=== PATIENT | female | born 2000 | race Caucasian/White ===

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

== ENCOUNTER 2019-03-03 08:09 | Emergency (ER) | payer OTHER, SELFPAY ==
[2019-03-03 09:18] LABS: Absolute Lymphocytes (CBC) 1.4 K/uL (0.7-4.9); Basophils % 0.4 % (0-1.3); Hematocrit 38.9 % (36.0-45.0); RBC Red Blood Cell Count 4.53 M/uL (3.86-4.86)
[2019-03-03 09:35] LABS: Urine Blood TRACE (NEG); Urine Glucose NEGATIVE (NEG); Urine Protein NEGATIVE (NEG); Urine Specific Gravity >1.030 (1.005-1.030); Urine pH 5.5 (5.0-7.0)
[2019-03-03 09:37] LABS: BUN Blood Urea Nitrogen 13 mg/dL (7-18); Bicarbonate 27 mmol/L (21-32); Glucose Level 110 mg/dL (74-106); HCG, Quantitative 419 mIU/mL (1-3); Potassium 3.9 mmol/L (3.5-5.1); Sodium Level 139 mmol/L (136-145)
--- NOTE | 2019-03-03 11:14 | RAD REPORT ---
EXAM DESCRIPTION: US - Transvaginal OB - 03/03/2019 10:40 am CLINICAL HISTORY: Pelvic pain, positive test COMPARISON: None. FINDINGS: Uterus measures 8.4 x 3.4 x 4.2 cm. No myometrial mass identified. Endometrium is approxim ately 15 mm in thickness with no gestational sac or sac remnant. No hemorrhagic material or other end ometrial abnormality seen. Cervical canal appears to be closed. Both ovaries are identified and normal in size. Normal blood flow within the stroma. No adnexal mass or other finding to suspect ectopic . No blood or fluid in the cul de sac. IMPRESSION: No intra uterine gestational sac or sac remnant. No endometrial abnormality. No adnexal mass to suspect ectopic . Follow-up sonography can be performed if patient has rising serial beta HCG values.
--- NOTE | 2019-03-03 11:38 | ER ---
Nurse's Notes [facility] Name: Chelita Rasmussen Age: 18 yrs Sex: Female : 2000 Arrival Date: 03/03/2019 Time: 08:12 Bed 19 Private MD: Diagnosis: state Presentation: 03/03 08:21 Presenting complaint: Abdominal cramping and diarrhea x 3 days. Transition of care: hb patient was not received from another setting of care. Onset of symptoms was February 28, 2019. Risk Assessment: Do you want to hurt yourself or someone else? Patient reports no desire to harm self or others. Initial Sepsis Screen: Does the patient meet any 2 criteria? No. Patient's initial sepsis screen is negative. Does the patient have a suspected source of infection? No. Patient's initial sepsis screen is negative. Care prior to arrival: None. 08:21 Method Of Arrival: Ambulatory 08:21 Acuity: RAGHAV 3 hb Triage Assessment: 08:30 General: Appears in no apparent distress. comfortable, obese, Behavior is cooperative, bp appropriate for age, anxious. Pain: Complains of pain in pelvis. EENT: No deficits noted. Neuro: No deficits noted. Cardiovascular: No deficits noted. Respiratory: No deficits noted. GI: No signs and/or symptoms were reported involving the gastrointestinal system. : Reports pain in suprapubic area. Derm: No deficits noted. Musculoskeletal: No deficits noted. 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 - Social history:: Smoking status: Patient/guardian denies using tobacco. - Ebola Screening: : No symptoms or risks identified at this time. Screenin:30 Abuse screen: Denies threats or abuse. Denies injuries from another. Nutritional bp screening: No deficits noted. Tuberculosis screening: No symptoms or risk factors identified. Fall Risk None identified. Assessment: 08:30 General: SEE TRIAGE NOTE. Pain: Complains of pain in pelvis. GI: Bowel sounds present X bp 4 quads. Abd is soft X 4 quads. 09:55 Reassessment: U/S AT B/S. bp 10:53 Reassessment: U/S COMPLETED, RESULTS PENDING. bp 11:58 Reassessment: PT D/C HOME AMBULATORY, DX WITH 1ST TRIMESTER . bp Vital Signs: 08:23 BP 131 / 84; Pulse 91; Resp 16; Temp 97.8; Pulse Ox 100% ; Weight 99.79 kg; Height 5 hb ft. 7 in. (170.18 cm); Pain 7/10; 09:54 BP 103 / 71; Pulse 78; Resp 16; Pulse Ox 100% ; bp 10:53 BP 129 / 75; Pulse 85; Resp 15; Pulse Ox 99% ; bp 11:58 BP 123 / 62; Pulse 67; Resp 16; Temp 97.5; Pulse Ox 98% ; bp 08:23 Body Mass Index 34.46 (99.79 kg, 170.18 cm) hb ED Course: 08:12 Patient arrived in ED. as 08:18 [place], MATHEUS is Primary Nurse. bp 08:22 Triage completed. hb 08:23 Arm band placed on. hb 08:24 [facility] kb 08:24 Lincoln Francois MD is Attending Physician. kb 08:30 Patient has correct armband on for positive identification. Bed in low position. Call bp light in reach. Side rails up X2. 08:45 Urine collected: clean catch specimen, cloudy. dh3 09:00 Inserted saline lock: 18 gauge in right antecubital area, using aseptic technique. bp Blood collected. 10:06 US Transvaginal Ob In Process Unspecified. EDMS 11:59 No provider procedures requiring assistance completed. IV discontinued, intact, bp bleeding controlled, No redness/swelling at site. Pressure dressing applied. Administered Medications: No medications were administered Outcome: 11:37 Discharge ordered by . kb 11:59 Discharged to home ambulatory. bp 11:59 Condition: stable 11:59 Discharge instructions given to patient, Instructed on discharge instructions, follow up and referral plans. Demonstrated understanding of instructions, follow-up care. 12:00 Patient left the ED. bp Signatures: Dispatcher [employer] EDWA Alejandra Diaz FNP-C FNP-Avelina Cutler Heather, RN RN Alyson Washburn dh3 [place], RN RN bp
--- NOTE | 2019-03-03 11:38 | EDPHYS ---
Physician Documentation [facility] Name: Cheliat Rasmussen Age: 18 yrs Sex: Female : 2000 Arrival Date: 03/03/2019 Time: 08:12 Bed 19 Private MD: ED Physician Lincoln Francois HPI: 03/03 09:50 This 18 yrs old Female presents to ER via Ambulatory with complaints of kb Pelvic Pain, Abdominal Cramping. 09:51 The patient presents with abdominal pain that is diffuse. Onset: The symptoms/episode kb began/occurred 5 day(s) ago. The symptoms do not radiate. Associated signs and symptoms: Pertinent positives: diarrhea. The symptoms are described as constant. Modifying factors: The symptoms are alleviated by nothing, the symptoms are aggravated by nothing. Severity of pain: At its worst the pain was moderate in the emergency department the pain is unchanged. The patient has not experienced similar symptoms in the past. The patient has not recently seen a physician. . Pt reports 5-6 days of abd cramping, diarrhea for 3-4 days. . 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 - Social history:: Smoking status: Patient/guardian denies using tobacco. - Ebola Screening: : No symptoms or risks identified at this time. ROS: 09:49 Constitutional: Negative for fever, chills, and weight loss, ENT: Negative for injury, kb pain, and discharge, Neck: Negative for injury, pain, and swelling, Cardiovascular: Negative for chest pain, palpitations, and edema, Respiratory: Negative for shortness of breath, cough, wheezing, and pleuritic chest pain, Back: Negative for injury and pain, : Negative for injury, bleeding, discharge, and swelling, MS/Extremity: Negative for injury and deformity, Skin: Negative for injury, rash, and discoloration, Neuro: Negative for headache, weakness, numbness, tingling, and seizure. 09:49 Abdomen/GI: Positive for diarrhea, abdominal cramps. Exam: 09:49 Constitutional: This is a well developed, well nourished patient who is awake, alert, kb and in no acute distress. Head/Face: Normocephalic, atraumatic. ENT: Nares patent. No nasal discharge, no septal abnormalities noted. Tympanic membranes are normal and external auditory canals are clear. Oropharynx with no redness, swelling, or masses, exudates, or evidence of obstruction, uvula midline. Mucous membranes moist. Neck: Trachea midline, no thyromegaly or masses palpated, and no cervical lymphadenopathy. Supple, full range of motion without nuchal rigidity, or vertebral point tenderness. No Meningismus. Chest/axilla: Normal chest wall appearance and motion. Nontender with no deformity. No lesions are appreciated. Cardiovascular: Regular rate and rhythm with a normal S1 and S2. No gallops, murmurs, or rubs. Normal PMI, no JVD. No pulse deficits. Respiratory: Lungs have equal breath sounds bilaterally, clear to auscultation and percussion. No rales, rhonchi or wheezes noted. No increased work of breathing, no retractions or nasal flaring. Back: No spinal tenderness. No costovertebral tenderness. Full range of motion. Skin: Warm, dry with normal turgor. Normal color with no rashes, no lesions, and no evidence of cellulitis. MS/ Extremity: Pulses equal, no cyanosis. Neurovascular intact. Full, normal range of motion. Neuro: Awake and alert, GCS 15, oriented to person, place, time, and situation. Cranial nerves II-XII grossly intact. Motor strength 5/5 in all extremities. Sensory grossly intact. Cerebellar exam normal. Normal gait. 09:49 Abdomen/GI: Inspection: abdomen appears normal, Bowel sounds: normal, in all quadrants, Palpation: soft, in all quadrants, mild abdominal tenderness, in all quadrants. Vital Signs: 08:23 BP 131 / 84; Pulse 91; Resp 16; Temp 97.8; Pulse Ox 100% ; Weight 99.79 kg; Height 5 hb ft. 7 in. (170.18 cm); Pain 7/10; 09:54 BP 103 / 71; Pulse 78; Resp 16; Pulse Ox 100% ; bp 10:53 BP 129 / 75; Pulse 85; Resp 15; Pulse Ox 99% ; bp 11:58 BP 123 / 62; Pulse 67; Resp 16; Temp 97.5; Pulse Ox 98% ; bp 08:23 Body Mass Index 34.46 (99.79 kg, 170.18 cm) hb MDM: 08:25 Patient medically screened. kb 09:49 Data reviewed: vital signs, nurses notes. Data interpreted: Pulse oximetry: on room air kb is 100 %. Interpretation: normal. 09:57 ED course: Pt educated on positive test. LMP was 01/15/19. kb 11:37 Counseling: I had a detailed discussion with the patient and/or guardian regarding: the kb historical points, exam findings, and any diagnostic results supporting the discharge/admit diagnosis, lab results, radiology results, the need for outpatient follow up, an OB/Gyne specialist, to return to the emergency department if symptoms worsen or persist or if there are any questions or concerns that arise at home. 03/03 08:46 Order name: Quantitative Hcg; Complete Time: 09:42 kb 03/03 08:46 Order name: Abo/rh Typing; Complete Time: 10:13 kb 03/03 08:46 Order name: Basic Metabolic Panel; Complete Time: 09:42 kb 03/03 08:46 Order name: CBC with Diff; Complete Time: 09:29 kb 03/03 08:57 Order name: Urine Dipstick--Ancillary (enter results); Complete Time: 09:42 bd 03/03 08:57 Order name: Urine --Ancillary (enter results); Complete Time: 09:42 bd 03/03 08:25 Order name: Urine Dipstick-Ancillary (obtain specimen); Complete Time: 08:46 kb 03/03 08:25 Order name: Urine Test (obtain specimen); Complete Time: 08:46 kb 03/03 08:46 Order name: IV Saline Lock; Complete Time: 09:07 kb 03/03 08:46 Order name: Labs collected and sent; Complete Time: 09:07 kb 03/03 08:46 Order name: NPO; Complete Time: 09:07 kb 03/03 09:42 Order name: US Transvaginal Ob; Complete Time: 11:36 kb Administered Medications: No medications were administered Disposition: 03/03/19 11:37 Discharged to Home. Impression: state. - Condition is Stable. - Discharge Instructions: First Trimester of , [id number]. - Medication Reconciliation Form, Thank You Letter, Antibiotic Education, Prescription Opioid Use, School release form, Work release form form. - Follow up: Emergency Department; When: As needed; Reason: Worsening of condition. Follow up: Private Physician; When: 2 - 3 days; Reason: Recheck today's complaints, Continuance of care, Re-evaluation by your physician. Addendum: 03/04/2019 20:52 Co-signature as Attending Physician, Lincoln Francois MD I agree with the assessment and k dr plan of care. Signatures: Dispatcher [employer] EDAL Alejandra Diaz, BAR BACK-C BAR BACK-Ckb Lincoln Francois MD MD [facility] Jocelynn Ortiz, RN RN [place] RN RN bp Corrections: (The following items were deleted from the chart) 03/03 12:00 11:37 03/03/2019 11:37 Discharged to Home. Impression: state. Condition is bp Stable. Forms are Medication Reconciliation Form, Thank You Letter, Antibiotic Education, Prescription Opioid Use. Follow up: Emergency Department; When: As needed; Reason: Worsening of condition. Follow up: Private Physician; When: 2 - 3 days; Reason: Recheck today's complaints, Continuance of care, Re-evaluation by your physician. kb
[2019-03-03 12:10] VITALS: BP 123/62; TEMP 97.5; O2SAT 98
== END 2019-03-03 12:00 | disposition home or self-care (01) ==
LOC: ER 08:09
DX: R10.2 Pelvic and perineal pain (principal); Z33.1 Pregnant state, incidental
CPT/HCPCS: 36415; 76817; 80048; 81003; 81025; 84702; 85025; 86900; 86901; 99284

== ENCOUNTER 2019-10-20 19:21 | Emergency (ER) | payer BC, SELFPAY ==
--- OUTSIDE RECORDS SUMMARY | 2019-10-20 19:24 | XMS REPORT | Continuity of Care Document ---
:2000 Author Organization [facility] t Address [address] [place] [address] Care Team Providers Name Role Phone Agustin Miller Attending Clinician Problems This patient has no known problems. Allergies, Adverse Reactions, Alerts This patient has no known allergies or adverse reactions. Medications This patient has no known medications. Procedures This patient has no known procedures. Encounters Start End Encounter Admission Attending Care Care Encounter Source Date/Time Date/Time Type Type Clinicians Facility Department ID 2019-06-04 2019-06-04 Emergency [facility] [id number] 15:23:11 18:34:00 Angela Sherwood [id number] [place] [id number] [place] [id number] Results This patient has no known results.
[2019-10-20 20:04] LABS: Urine Blood 1+ (NEG); Urine Glucose NEGATIVE (NEG); Urine Protein TRACE (NEG); Urine Specific Gravity >1.030 (1.005-1.030)
[2019-10-20 20:32] LABS: Urine Bacteria 20-50 /HPF (<20); Urine Culture Reflex Order REFLEXED; Urine RBC <5 /HPF (NONE SEEN)
[2019-10-20 20:33] LABS: Absolute Lymphocytes (CBC) 1.1 K/uL (0.7-4.9); Basophils % 0.7 % (0-1.3); Hematocrit 36.6 % (36.0-45.0); Lymphocytes % 24.6 % (15.3-44.8); MPV 9.3 fL (7.6-11.3)
[2019-10-20 20:40] LABS: Protime INR 1.06
[2019-10-20 20:42] LABS: Barbiturates NEGATIVE (NEGATIVE); Benzodiazepines NEGATIVE (NEGATIVE); Cocaine NEGATIVE (NEGATIVE); METHAMPHETAM NEGATIVE (NEGATIVE); Methadone NEGATIVE (NEGATIVE); Opiates NEGATIVE (NEGATIVE); Phencyclidine NEGATIVE (NEGATIVE); THC Cannibis NEGATIVE (NEGATIVE)
[2019-10-20 20:43] LABS: ALT/SGPT 27 U/L (12-78); AST/SGOT 15 U/L (15-37); Albumin 4.4 g/dL (3.4-5.0); Alkaline Phosphatase 47 U/L (45-117); BUN Blood Urea Nitrogen 11 mg/dL (7-18); Bicarbonate 30 mmol/L (21-32); Bilirubin Direct 0.1 mg/dL (0-0.2); Bilirubin Total 0.5 mg/dL (0.2-1.0); Glucose Level 73 mg/dL (74-106); Magnesium 2.1 mg/dL (1.8-2.4); NT PRO-BNP 19 pg/mL (<125); Potassium 3.9 mmol/L (3.5-5.1); Protein, Total 8.4 g/dL (6.4-8.2); Sodium Level 141 mmol/L (136-145); Troponin (Emerg Dept Use Only) < 0.02 ng/mL (0.0-0.045)
--- NOTE | 2019-10-20 20:44 | RAD REPORT ---
EXAM DESCRIPTION: RAD - Chest Single View - 10/20/2019 8:26 pm CLINICAL HISTORY: CHEST PAIN COMPARISON: None TECHNIQUE: AP portable chest image was obtained 10/20/2019 8:26 pm . FINDINGS: Lungs are clear. Heart and vasculature are normal. No measurable pleural effusion and no p neumothorax. No acute bony abnormality seen. No acute aortic findings suspected. IMPRESSION: No acute cardiopulmonary process.
--- NOTE | 2019-10-20 21:22 | RAD REPORT ---
EXAM DESCRIPTION: CT - Head Brain Wo Cont - 10/20/2019 9:03 pm CLINICAL HISTORY: SYNCOPE, altered mental status, unresponsive COMPARISON: <Comparisons> TECHNIQUE: Axial 5 mm thick images of the head were obtained without IV contrast. All CT scans are performed using dose optimization technique as appropriate and may include automated exposure control or mA/KV adjustment according to patient size. FINDINGS: No intracranial hemorrhage, mass, edema or shift of mid-line structures. No acute infarcti on changes seen. No abnormal extra-axial fluid collections. Ventricles are normal. Mastoid air cells and visualized portions of the paranasal sinuses are clear. No acute bony findings. IMPRESSION: Negative non-contrast CT head examination.
--- NOTE | 2019-10-21 01:21 | EDPHYS ---
Physician Documentation [facility] Name: Chelita Rasmussen Age: 19 yrs Sex: Female : 2000 Arrival Date: 10/20/2019 Time: 19:23 Bed 6 Private MD: ED Physician Francis Doe HPI: 10/19 20:06 This 19 yrs old Female presents to ER via EMS with complaints of loss of mh7 consciousness. 20:06 The patient has experienced syncope, became unresponsive, collapsed, lost mh7 consciousness. Onset: The symptoms/episode began/occurred today. Duration: This was a single episode, that lasted an unknown period of time. Context: the episode(s) was witnessed, by no one, the downtime is unknown, occurred at work, occurred while the patient was standing, Just prior to the episode the patient experienced dizziness, lightheadedness. Associated injury:. 20:07 Associated injury: The patient did not suffer any apparent associated injury. mh7 Associated signs and symptoms: Pertinent positives: abdominal pain, chest pain, dizziness, lightheadedness, Pertinent negatives: agitation, ataxia, blurred vision, combativeness, confusion, diaphoresis, diarrhea, headache, nausea, numbness, palpitations, seizure, shortness of breath, tingling, vertigo, vomiting, weakness. Current symptoms: Currently, the patient is not experiencing any symptoms, the patient feels back to baseline, no decreased level of consciousness, no confusion, no dysphasia, no headache, no paralysis, no visual changes. 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 - Social history:: Smoking status: unknown Patient/guardian denies using alcohol, street drugs, tobacco products. ROS: 20:07 Constitutional: Negative for fever, chills, and weight loss, Eyes: Negative for injury, mh7 pain, redness, and discharge, ENT: Negative for injury, pain, and discharge, Neck: Negative for injury, pain, and swelling, Respiratory: Negative for shortness of breath, cough, wheezing, and pleuritic chest pain, Back: Negative for injury and pain, : Negative for injury, bleeding, discharge, and swelling, MS/Extremity: Negative for injury and deformity, Skin: Negative for injury, rash, and discoloration, Psych: Negative for depression, anxiety, suicide ideation, homicidal ideation, and hallucinations, Allergy/Immunology: Negative for hives, rash, and allergies, Endocrine: Negative for neck swelling, polydipsia, polyuria, polyphagia, and marked weight changes, Hematologic/Lymphatic: Negative for swollen nodes, abnormal bleeding, and unusual bruising. Exam: 20:07 Constitutional: This is a well developed, well nourished patient who is awake, alert, mh7 and in no acute distress. Head/Face: Normocephalic, atraumatic. Eyes: Pupils equal round and reactive to light, extra-ocular motions intact. Lids and lashes normal. Conjunctiva and sclera are non-icteric and not injected. Cornea within normal limits. Periorbital areas with no swelling, redness, or edema. ENT: Nares patent. No nasal discharge, no septal abnormalities noted. Tympanic membranes are normal and external auditory canals are clear. Oropharynx with no redness, swelling, or masses, exudates, or evidence of obstruction, uvula midline. Mucous membranes moist. Neck: Trachea midline, no thyromegaly or masses palpated, and no cervical lymphadenopathy. Supple, full range of motion without nuchal rigidity, or vertebral point tenderness. No Meningismus. 20:07 Cardiovascular: Regular rate and rhythm with a normal S1 and S2. No gallops, murmurs, or rubs. Normal PMI, no JVD. No pulse deficits. Respiratory: Lungs have equal breath sounds bilaterally, clear to auscultation and percussion. No rales, rhonchi or wheezes noted. No increased work of breathing, no retractions or nasal flaring. 20:07 Skin: Warm, dry with normal turgor. Normal color with no rashes, no lesions, and no evidence of cellulitis. MS/ Extremity: Pulses equal, no cyanosis. Neurovascular intact. Full, normal range of motion. Neuro: Awake and alert, GCS 15, oriented to person, place, time, and situation. Cranial nerves II-XII grossly intact. Motor strength 5/5 in all extremities. Sensory grossly intact. Cerebellar exam normal. Normal gait. Psych: Awake, alert, with orientation to person, place and time. Behavior, mood, and affect are within normal limits. 20:07 Chest/axilla: Inspection: normal, Palpation: tenderness, that is moderate, of the anterior aspect of left upper chest, that totally reproduces the patient's complaints, Axilla: are normal, Lymph nodes: lymphadenopathy is not appreciated. 20:07 Abdomen/GI: Inspection: abdomen appears normal, Bowel sounds: normal, in all quadrants, Palpation: moderate abdominal tenderness, in the abdomen diffusely, Rectal exam: the exam is deferred, because of patient request, Indicators: McBurney's point is not tender, Anne's sign is negative, Rovsing's sign is negative, Obturator sign is negative, Psoas sign is negative, Liver: no appreciated palpable abnormalities, Hernia: not appreciated. Vital Signs: 19:25 BP 117 / 80; Pulse 75; Resp 16; Temp 97.5; Pulse Ox 99% ; Weight 108.86 kg; Height 5 rr5 ft. 7 in. (170.18 cm); Pain 9/10; 21:00 BP 116 / 85; Pulse 75; Resp 19; Pulse Ox 100% ; rr5 22:00 BP 123 / 74; Pulse 68; Resp 15; Pulse Ox 98% ; rr5 23:00 BP 121 / 68; Pulse 60; Resp 15; Pulse Ox 99% ; rr5 23:52 BP 129 / 86; Pulse 65; Resp 17; Pulse Ox 99% on R/A; rr5 10/20 00:29 BP 107 / 69; Pulse 61; Resp 16; Temp 98.5; Pulse Ox 99% ; rr5 10/19 19:25 Body Mass Index 37.59 (108.86 kg, 170.18 cm) rr5 MDM: 10/19 20:04 Patient medically screened. mh7 10/20 00:25 Differential Diagnosis: aortic aneurysm, cardiac arrhythmia, drug effect, emotional mh7 response, idiopathic syncope, , vasovagal episode. Data reviewed: vital signs, nurses notes, EMS record, lab test result(s), cardiac enzymes, CBC, electrolytes, urinalysis, EKG, radiologic studies, CT scan, plain films. Data interpreted: Pulse oximetry: on room air is 99 %. Interpretation: normal. Counseling: I had a detailed discussion with the patient and/or guardian regarding: the historical points, exam findings, and any diagnostic results supporting the discharge/admit diagnosis, lab results, radiology results, the need for outpatient follow up, to return to the emergency department if symptoms worsen or persist or if there are any questions or concerns that arise at home. Response to treatment: the patient's symptoms have resolved after treatment, the patient's blood pressure is in an acceptable range, mental status has returned to baseline, the patient no longer shows bradycardia, the patient is not short of breath, the patient is not tachycardic, the patient's pain is gone, the patient's temperature has normalized. 10/19 19:41 Order name: Basic Metabolic Panel; Complete Time: 21:54 rr5 10/19 19:41 Order name: CBC with Diff; Complete Time: 21:54 rr5 10/19 19:41 Order name: LFT's; Complete Time: 21:54 rr5 10/19 19:41 Order name: Magnesium; Complete Time: 21:54 rr5 10/19 19:41 Order name: NT PRO-BNP; Complete Time: 21:54 rr5 10/19 19:41 Order name: PT-INR; Complete Time: 21:54 rr5 10/19 19:41 Order name: Troponin (emerg Dept Use Only); Complete Time: 21:54 rr5 10/19 19:41 Order name: XRAY Chest (1 view); Complete Time: 21:54 rr5 10/19 19:55 Order name: Urine Microscopic Only; Complete Time: 21:54 rr5 10/19 19:57 Order name: Urine Dipstick--Ancillary (enter results); Complete Time: 20:12 mw2 10/19 19:57 Order name: Urine --Ancillary (enter results); Complete Time: 20:12 mw2 10/19 20:11 Order name: UDS; Complete Time: 21:54 mh7 10/19 20:11 Order name: Lipase; Complete Time: 21:54 mh7 10/19 20:33 Order name: Urine Culture EDMS 10/19 19:41 Order name: EKG; Complete Time: 19:42 rr5 10/19 19:41 Order name: Cardiac monitoring; Complete Time: 20:47 rr5 10/19 19:41 Order name: EKG - Nurse/Tech; Complete Time: 20:48 5 10/19 19:41 Order name: IV Saline Lock; Complete Time: 20:48 [facility] 10/19 19:41 Order name: Labs collected and sent; Complete Time: 20:48 5 10/19 19:41 Order name: O2 Per Protocol; Complete Time: 20:48 5 10/19 19:41 Order name: O2 Sat Monitoring; Complete Time: 20:48 [facility] 10/19 19:55 Order name: Urine Dipstick-Ancillary (obtain specimen); Complete Time: 19:56 [facility] 10/19 19:55 Order name: Urine Test (obtain specimen); Complete Time: 19:56 [facility] 10/19 20:03 Order name: CT Head Brain wo Cont; Complete Time: 21:54 [facility] 10/19 21:58 Order name: CT Chest For PE Angio [facility] 10/19 21:58 Order name: CT Abd/Pelvis - IV Contrast Only [facility] Administered Medications: 10/19 22:07 Drug: NS 0.9% 1000 ml Route: IV; Rate: 1000 ml; Site: right antecubital; [facility] 10/20 00:30 Follow up: Response: No adverse reaction; IV Status: Completed infusion; IV Intake: rr5 1000ml Disposition: 03:32 Co-signature as Attending Physician, Francis Doe MD. 7 Disposition: 10/21/19 00:27 Discharged to Home. Impression: Syncope, UTI. - Condition is Stable. - Discharge Instructions: Urinary Tract Infection, Adult, [id number], Syncope, [id number]. - Prescriptions for Keflex 500 mg Oral Capsule - take 1 capsule by ORAL route every 12 hours for 7 days; 14 capsule. - Work release form, Medication Reconciliation Form, Thank You Letter, Antibiotic Education, Prescription Opioid Use form. - Follow up: Private Physician; When: 1 - 2 days; Reason: Worsening of condition, Recheck today's complaints, Continuance of care, Re-evaluation by your physician. - Problem is new. - Symptoms are resolved. Signatures: Dispatcher [employer] Ezekiel Junior RN RN 5 Francis Doe MD MD 7 Corrections: (The following items were deleted from the chart) 00:40 00:27 10/21/2019 00:27 Discharged to Home. Impression: Syncope; UTI. Condition is rr5 Stable. Forms are Medication Reconciliation Form, Thank You Letter, Antibiotic Education, Prescription Opioid Use. Follow up: Private Physician; When: 1 - 2 days; Reason: Worsening of condition, Recheck today's complaints, Continuance of care, Re-evaluation by your physician. Problem is new. Symptoms are resolved. mh7
--- NOTE | 2019-10-21 01:21 | ER ---
Nurse's Notes [facility] Name: Chelita Rasmussen Age: 19 yrs Sex: Female : 2000 Arrival Date: 10/20/2019 Time: 19:23 Bed 6 Private MD: Diagnosis: Syncope;UTI Presentation: 10/19 19:25 Chief complaint: EMS states: found unresponsive inside the restroom. all she remembered rr5 was opening the door and going to the restroom. she complaints now of dizziness, stomach cramps has her period and chest pain. CBG 114 mg/Dl. Coronavirus screen: Client denies travel out of the [place] in the last 14 days. At this time, the client does not indicate any symptoms associated with coronavirus-19. Ebola Screen: Patient negative for fever greater than or equal to 101.5 degrees Fahrenheit, and additional compatible Ebola Virus Disease symptoms Patient denies exposure to infectious person. Patient denies travel to an Ebola-affected area in the 21 days before illness onset. Initial Sepsis Screen: Does the patient meet any 2 criteria? No. Patient's initial sepsis screen is negative. Does the patient have a suspected source of infection? No. Patient's initial sepsis screen is negative. Risk Assessment: Do you want to hurt yourself or someone else? Patient reports no desire to harm self or others. Onset of symptoms was October 20, 2019. 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 - Social history:: Smoking status: unknown Patient/guardian denies using alcohol, street drugs, tobacco products. Screenin:42 Abuse screen: Denies threats or abuse. Denies injuries from another. Nutritional rr5 screening: No deficits noted. Tuberculosis screening: No symptoms or risk factors identified. Fall Risk Fall in past 12 months (25 points). IV access (20 points). Total [place] Fall Scale indicates High Risk Score (45 or more points). Fall prevention measures have been instituted. Side Rails Up X 2 Frequent Obs/Assessments Occuring As available patient and family educated on Fall Prevention Program and Strategies. Assessment: 19:25 General: Appears in no apparent distress. uncomfortable, Behavior is calm, cooperative, rr5 appropriate for age. 19:25 Pain: Complains of pain in chest and abdomen Pain currently is 9 out of 10 on a pain rr5 scale. Quality of pain is described as burning, aching, Pain began gradually, Is intermittent. Neuro: Level of Consciousness is awake, alert, obeys commands, Oriented to person, place, time, situation, Reports Loss of consciousness. Cardiovascular: Reports chest pain, Capillary refill < 3 seconds Patient's skin is warm and dry. Respiratory: Airway is patent Respiratory effort is even, unlabored, Respiratory pattern is regular, symmetrical. GI: Abdomen is round non-distended, Reports lower abdominal pain, upper abdominal pain. : No signs and/or symptoms were reported regarding the genitourinary system. EENT: No signs and/or symptoms were reported regarding the EENT system. Derm: Skin is intact, is healthy with good turgor, Skin temperature is warm. Musculoskeletal: Circulation, motion, and sensation intact. Capillary refill < 3 seconds. 20:25 Reassessment: Patient appears in no apparent distress at this time. No changes from rr5 previously documented assessment. Patient is alert, oriented x 3, equal unlabored respirations, skin warm/dry/pink. 22:30 Reassessment: Patient appears in no apparent distress at this time. No changes from rr5 previously documented assessment. Patient is alert, oriented x 3, equal unlabored respirations, skin warm/dry/pink. 23:35 Reassessment: Patient appears in no apparent distress at this time. Patient is alert, rr5 oriented x 3, equal unlabored respirations, skin warm/dry/pink. voided freely without assistance using bedside commode Patient states symptoms have improved. 10/20 00:38 Reassessment: Patient appears in no apparent distress at this time. Patient is alert, rr5 oriented x 3, equal unlabored respirations, skin warm/dry/pink. discharge instruction given and explained without complaints made. Vital Signs: 10/19 19:25 BP 117 / 80; Pulse 75; Resp 16; Temp 97.5; Pulse Ox 99% ; Weight 108.86 kg; Height 5 rr5 ft. 7 in. (170.18 cm); Pain 9/10; 21:00 BP 116 / 85; Pulse 75; Resp 19; Pulse Ox 100% ; rr5 22:00 BP 123 / 74; Pulse 68; Resp 15; Pulse Ox 98% ; rr5 23:00 BP 121 / 68; Pulse 60; Resp 15; Pulse Ox 99% ; rr5 23:52 BP 129 / 86; Pulse 65; Resp 17; Pulse Ox 99% on R/A; rr5 10/20 00:29 BP 107 / 69; Pulse 61; Resp 16; Temp 98.5; Pulse Ox 99% ; rr5 10/19 19:25 Body Mass Index 37.59 (108.86 kg, 170.18 cm) rr5 ED Course: 10/19 19:23 Patient arrived in ED. bb 19:24 Ezekiel Altamirano RN is Primary Nurse. rr5 19:28 Francis Doe MD is Attending Physician. [facility] 19:32 Triage completed. rr5 19:42 Arm band placed on right wrist. rr5 19:42 Patient has correct armband on for positive identification. Placed in gown. Bed in low rr5 position. Call light in reach. Side rails up X2. campus monitor on. Pulse ox on. NIBP on. 19:57 Urine collected: clean catch specimen, clear. rr5 20:07 Inserted saline lock: 20 gauge in right antecubital area, using aseptic technique. oe Blood collected. 20:26 XRAY Chest (1 view) In Process Unspecified. EDMS 21:03 CT Head Brain wo Cont In Process Unspecified. EDMS 22:54 CT Chest For PE Angio In Process Unspecified. EDMS 22:56 CT Abd/Pelvis - IV Contrast Only In Process Unspecified. EDMS 08 00:40 No provider procedures requiring assistance completed. IV discontinued, intact, rr5 bleeding controlled, No redness/swelling at site. Pressure dressing applied. Administered Medications: 10/19 22:07 Drug: NS 0.9% 1000 ml Route: IV; Rate: 1000 ml; Site: right antecubital; rr5 10/20 00:30 Follow up: Response: No adverse reaction; IV Status: Completed infusion; IV Intake: rr5 1000ml Intake: 00:30 IV: 1000ml; Total: 1000ml. rr5 Outcome: 00:27 Discharge ordered by . 7 00:39 Discharged to home ambulatory. rr5 00:39 Condition: stable 00:39 Discharge instructions given to patient, Instructed on discharge instructions, follow up and referral plans. medication usage, Demonstrated understanding of instructions, follow-up care, medications, Prescriptions given X 1. 00:40 Patient left the ED. rr5 Signatures: Dispatcher [employer] EDMS Vivien Bose, RN RN Fer Bower Raymond, RN RN rr5 Francis Doe MD MD mh7
[2019-10-21 01:36] VITALS: O2SAT 99
[2019-10-21 01:39] VITALS: BP 107/69; TEMP 98.5
--- NOTE | 2019-10-21 10:05 | RAD REPORT ---
EXAM DESCRIPTION: CT - Chest For Pe Angio - 10/20/2019 10:54 pm CLINICAL HISTORY: CHEST PAIN COMPARISON: None. TECHNIQUE: CT CHEST ANGIOGRAPHY WITH IV CONTRAST on 10/20/2019 9:58 PM CDT. MIPS reconstructions were generated. This exam was performed according to our departmental dose-optimization program, which includes autom ated exposure control, adjustment of the mA and/or kV according to patient size and/or use of iterati ve reconstruction technique. MIP images were generated. FINDINGS: Thoracic aorta is normal in course and caliber without aneurysm or dissection. Pulmonary a rteries are adequately opacified without acute or chronic filling defects. The heart is mildly enlarged. There is no pericardial effusion. Intrathoracic lymph nodes are not enl arged. There is no pleural effusion, pleural thickening or pneumothorax. Central airways are patent. Lungs a re clear with no consolidation, mass or interstitial lung disease. There are no acute abnormalities within the limited images of the upper abdomen. There are no acute osseous findings. No suspicious bony lesions. IMPRESSION: No aortic dissection or aneurysm. No pulmonary embolus. No definite pneumonia. Electronically signed by: Zaheer Lopez MD 10/20/2019 11:03 PM CDT Due to temporary technical issues with the PACS/Fluency reporting system, reports are being signed by the in house radiologist without review as a courtesy to ensure prompt reporting. The interpreting r adiologist is fully responsible for the content of the report
--- NOTE | 2019-10-21 10:07 | RAD REPORT ---
EXAM DESCRIPTION: CT - Abdomen Pelvis W Contrast - 10/20/2019 10:55 pm CLINICAL HISTORY: ABD PAIN COMPARISON: None. TECHNIQUE: CT ABDOMEN PELVIS WITH IV CONTRAST on 10/20/2019 9:58 PM CDT This exam was performed according to our departmental dose-optimization program, which includes autom ated exposure control, adjustment of the mA and/or kV according to patient size and/or use of iterati ve reconstruction technique. FINDINGS: Lower lungs are clear. Abdomen: The liver is normal in appearance. There is no biliary dilatation. Gallbladder is decompress ed. Spleen is borderline in size at 13.8 cm. Pancreas is normal in appearance. The adrenal glands and kidneys are unremarkable. Abdominal aorta is normal in course and caliber without aneurysm. There is no free air. There is no r etroperitoneal adenopathy. Pelvis: There is no bowel obstruction. Urinary bladder is unremarkable. There is no free fluid. Uteru s is normal in size. Appendix is normal. Skeleton: There are no acute osseous findings. No suspicious bony lesions. IMPRESSION: No definite acute process. Electronically signed by: Zaheer Lopez MD 10/20/2019 11:05 PM CDT Due to temporary technical issues with the PACS/Fluency reporting system, reports are being signed by the in house radiologist without review as a courtesy to ensure prompt reporting. The interpreting r adiologist is fully responsible for the content of the report
== END 2019-10-21 00:40 | disposition home or self-care (01) ==
LOC: ER 19:21
DX: R55 Syncope and collapse (principal); N39.0 Urinary tract infection, site not specified
CPT/HCPCS: 93005; 87088; 85025; 87086; 80048; 36415; 83735; 81025; 85610; 80076; 80307 ×8; 84484; 83690; 83880; 70450; 71275; 74177; 71045; Q9967; 81003; 81015; 96360; 96361; 99285

== ENCOUNTER 2022-08-31 02:31 | Emergency (ER) | payer OTHER ==
--- OUTSIDE RECORDS SUMMARY | 2022-08-31 02:36 | XMS REPORT | Continuity of Care Document ---
:2000 Author Organization [facility] t Address [address] [place] [address] [place] [id number] Care Team Providers Name Role Phone ZARI BAER Primary Care Physician Unavailable ELVIA BARRETT Attending Clinician Unavailable ZARI BAER Attending Clinician Unavailable CARRIE GUY Attending Clinician Unavailable Provider, [facility] Temp Attending Clinician Unavailable Carrie An Attending Clinician Visit, [facility] Nurse Attending Clinician Unavailable Keyur WHZari ROSALES Attending Clinician [phone] Adela Patrick MD, Christianson Attending Clinician [phone] Juan Ramon Ingram MD Attending Clinician Irma Joy DO Attending Clinician Juan Alberto Tian MD Attending Clinician Lab, [facility] Attending Clinician Unavailable 5, [facility] Room Attending Clinician Unavailable Belia Orosco MD Attending Clinician BELIA OROSCO Attending Clinician Unavailable Laverne Angeles Attending Clinician LAVERNE FERREIRA Attending Clinician Unavailable FABRIZIO BEEBE Attending Clinician Unavailable Fabrizio Beebe DO Attending Clinician Lab, [facility] Attending Clinician Unavailable TAMIA CLOUD Attending Clinician Unavailable 2, [facility] Room Attending Clinician Unavailable Steven Cardenas DO Attending Clinician ANNA FELICIANO Attending Clinician Unavailable Anna Feliciano DO Attending Clinician Doctor Unassigned, [place] Attending Clinician Unavailable Jenniffer Miller Attending Clinician JENNIFFER RENTERIA Attending Clinician Unavailable Tamia Cloud MD Admitting Clinician [phone] TAMIA CLOUD Admitting Clinician Unavailable FABRIZIO BEEBE Admitting Clinician Unavailable ANNA FELICIANO Admitting Clinician Unavailable JENNIFFER RENTERIA Admitting Clinician Unavailable Payers Payer Name Policy Type Policy Number Effective Date Expiration Date [facility] [id number] 2021 STAR 00:00:00 [facility] [id number] 2021 2021 PPO/POS 00:00:00 00:00:00 Problems Condition Condition Condition Status Onset Resolution Last Treating Co mments Source Name Details Category Date Date Treatment Clinician Date Hypertensi Hypertensi Disease Active U nivers on in on in 12-10 [place] of , , [place] pre-exist[place] pre-existi 00 Me dical ng, ng, Branch antepartum antepartum 38 weeks 38 weeks Disease Active Unive rs gestation gestation 12-10 ity of of of 00:00: [place] 00 Medi halle Branch Positive Positive Disease Active Overview: Un gene GBS test GBS test 11-26 Formattin ity of 00:00: g of this [place] 00 note Medical might be Branch different from the original. Address pp Elevated Elevated Disease Active Unive rs blood blood 11-23 ity of pressure pressure 00:00: [place] reading reading 00 Medical without without Branch diagnosis diagnosis of of hypertensi hypertensi on on Abnormal Abnormal Disease Active Overview: Un gene maternal maternal 6-24 Formattin ity of glucose glucose 00:00: g of this [place] tolerance, tolerance, 00 note Me dical antepartum antepartum might be Branch different from the original. Passed 3hr gtt Back pain Back pain Disease Active Uni vers in in 6-23 [place] 00 [place] UTI in UTI in Disease Active Overview: Univer s 3-03 Formattin i ty of 00:00: g of this [place] 00 note Medical might be Branch different from the original. Reports dx at the ER, currently on meds, elda next visit-neg Chlamydia Chlamydia Disease Active Overview: Univers infection, infection, 04-23 Formattin ity of current current 00:00: g of this 00 note [facility] might be Branch different from the original. Neg elda Rubella Rubella Disease Active Univers non-immune non-immune 204 it y of status, status, 00:00: [place] antepartum antepartum 00 Me dical Branch Susceptibl Susceptibl Disease Active Overview : Univers e to e to 04-20 Formattin ity of varicella varicella 00:00: [place] of this [place] (non-immun (non-immun 00 note Me dical e), e), might be Branch currently currently different from the original. Address pp Supervisio Supervisio Disease Active U daveyers n of n of 2-03 ity of high-risk high-risk 00:[place] [facility] Branch Obesity in Obesity in Disease Active U nivers 7-31 ity of 00:00: [place] 00 Medical Branch Acute Acute Disease Active Univers tonsilliti tonsilliti 1-06 it y of s due to s due to 00:00: [place] other other 00 Medical specified specified Bran ch organisms organisms Sore Sore Disease Active Univers throat throat 1-06 ity of 00:00: [place] 00 Medical Branch Allergies, Adverse Reactions, Alerts Allergy Allergy Status Severity Reaction(s) Onset Inactive Treating Comm ents Source Name Type Date Date Clinician NO KNOWN Drug Active Univers ALLERGIE Class ity of S [facility] Social History Social Habit Start Date Stop Date Quantity Comments Source ASSERTION 2021-03-29 University of 00:00:00 [facility] Alcohol intake 2022-01-02 2022-01-02 Ex-drinker [place] of 00:00:00 00:00:00 (finding) [facility] Exposure to 2021-12-22 2022-01-01 Not sure [facility] SARS-CoV-2 00:00:00 13:04:00 [facility] [place] (event) Branch Tobacco use and 2021-09-27 2021-09-27 Former smokeless Uni versity of exposure 00:00:00 00:00:00 tobacco user [facility] [place] [facility] [place] Tobacco Comment 2021-09-27 2021-09-27 quit when she Univer sity of 00:00:00 00:00:00 found out she was Bruce jung Branch History of 2021-04-15 User of smokeless Univers ity of tobacco use 00:00:00 tobacco [facility] Sex Assigned At [birth year] Universit y of 00:00:00 00:00:00 [facility] Smoking Status Start Date Stop Date Source Never smoked tobacco [facility] Medications Ordered Filled Start Stop Current Ordering Indication Dosage Frequency Signature Comments Components Source Medication Medication Date Date Medication? Clinician (SIG) Name Name Yes [id number] 1{tbl} Take 1 Univers vit 9-29 tablet by ity of no.130-iron 00:00: mouth in [place] -folic 00 the Medical ( morning. Branch VITAMIN) docusate Yes [id number] 200mg Take 2 U nivers 100 mg 9-29 capsules ity of capsule 00:00: by mouth 00 once daily Medical as needed Branch for Constipati on. ferrous Yes [id number] 325mg Take 1 Un gene sulfate 325 9-29 tablet by ity of mg (65 mg 00:00: [place] iron) 00 the Medical tablet morning Branch and 1 tablet in the evening. ibuprofen Yes [id number] 600mg Take 1 Univers 600 mg 9-29 tablet by ity of tablet 00:00: mouth [place] 00 every 6 Medical (six) Branch hours as needed (Pain). Take with food or milk. HYDROcodone Yes [id number] 1{tbl} Take 1 Un gene -acetaminop 9-29 tablet by ity of hen 5-325 00:00: mouth [place] mg tablet 00 every 6 Medical (six) Branch hours as needed for Pain (scale 7-10) or Pain (scale 4-6) (Pain scale above 4). Do not exceed 3 grams of acetaminop hen in 24 hours. Indication s: acute pain Yes [id number] 1{tbl} Take 1 Univers vit 9-29 tablet by ity of no.130-iron 00:00: mouth [place] -folic 00 the Medical ( morning. Branch VITAMIN) docusate Yes [id number] 200mg Take 2 U nivers 100 mg 9-29 capsules ity of capsule 00:00: by mouth [place] 00 once daily Medical as needed Branch for Constipati on. ferrous Yes [id number] 325mg Take 1 Un gene sulfate 325 9-29 tablet by ity of mg (65 mg 00:00: [place] iron) 00 the Medical tablet morning Branch and 1 tablet in the evening. ibuprofen Yes [id number] 600mg Take 1 Univers 600 mg 9-29 tablet by ity of tablet 00:00: mouth [place] 00 every 6 Medical (six) Branch hours as needed (Pain). Take with food or milk. HYDROcodone Yes [id number] 1{tbl} Take 1 Un gene -acetaminop 9-29 tablet by ity of hen 5-325 00:00: mouth [place] mg tablet 00 every 6 Medical (six) Branch hours as needed for Pain (scale 7-10) or Pain (scale 4-6) (Pain scale above 4). Do not exceed 3 grams of acetaminop hen in 24 hours. Indication s: acute pain Yes [id number] 1{tbl} Take 1 Univers vit 9-29 tablet by ity of no.130-iron 00:00: mouth in [place] -folic 00 the Medical ( morning. Branch VITAMIN) docusate Yes [id number] 200mg Take 2 U nivers 100 mg 9-29 capsules ity of capsule 00:00: by mouth [place] 00 once daily Medical as needed Branch for Constipati on. ferrous Yes [id number] 325mg Take 1 Un gene sulfate 325 9-29 tablet by ity of mg (65 mg 00:00: [place] iron) 00 the Medical tablet morning Branch and 1 tablet in the evening. ibuprofen Yes [id number] 600mg Take 1 Univers 600 mg 9-29 tablet by ity of tablet 00:00: mouth [place] 00 every 6 Medical (six) Branch hours as needed (Pain). Take with food or milk. HYDROcodone Yes [id number] 1{tbl} Take 1 Un geen -acetaminop 9-29 tablet by ity of hen 5-325 00:00: mouth [place] mg tablet 00 every 6 Medical (six) Branch hours as needed for Pain (scale 7-10) or Pain (scale 4-6) (Pain scale above 4). Do not exceed 3 grams of acetaminop hen in 24 hours. Indication s: acute pain Yes [id number] 1{tbl} Take 1 Univers vit 9-29 tablet by ity of no.130-iron 00:00: mouth in [place] -folic 00 the Medical ( morning. Branch VITAMIN) docusate Yes [id number] 200mg Take 2 U nivers 100 mg 9-29 capsules ity of capsule 00:00: by mouth [place] 00 once daily Medical as needed Branch for Constipati on. ferrous Yes [id number] 325mg Take 1 Un gene sulfate 325 9-29 tablet by ity of mg (65 mg 00:00: mouth [place] iron) 00 the Medical tablet morning Branch and 1 tablet in the evening. ibuprofen Yes [id number] 600mg Take 1 Univers 600 mg 9-29 tablet by ity of tablet 00:00: mouth [place] 00 every 6 Medical (six) Branch hours as needed (Pain). Take with food or milk. HYDROcodone Yes [id number] 1{tbl} Take 1 Un gene -acetaminop 9-29 tablet by ity of hen 5-325 00:00: mouth [place] mg tablet 00 every 6 Medical (six) Branch hours as needed for Pain (scale 7-10) or Pain (scale 4-6) (Pain scale above 4). Do not exceed 3 grams of acetaminop hen in 24 hours. Indication s: acute pain varicella Yes 1{each} 0.5 mL (1 Univers virus 9-28 Each), ity of vaccine 11:29: [place]cut[place] live 58 us, Medical (VARIVAX) ONCE-PRIOR Bran ch injection TO and diluent DISCHARGE, vial 1 dose, Starting on Fri12/12/21 at 0629, Until Discontinu ed, Routine, Give vaccine prior to discharge ketorolac 30mg 30 mg, Unive rs (TORADOL) 12-11 Slow IV ity of injection 23:43: 00:03 Push, PRN, [place] 30 mg 51 :00 1 dose, Medical Starting Branch on Fri12/11/21 at 1843, Until Fri12/11/21 at 1903, Routine, Pain (scale 7-10) lactated No 1000mL at 125 [facility] ers ringers IV 12-11 mL/hr, ity of infusion 23:30: 01:50 1,000 mL, Abdulkadir as 1,000 mL 00 :00 IV Medical Infusion, Branch ONCE, 1 dose, On Fri12/11/21 at 1830, Routine rho(D) Yes 300ug 300 mcg, [facility] s immune 12-11 Intramuscu ity of globulin 23:21: lar, ONCE, Abdulkadir as (RHOGAM) 54 For 1 Medical syringe 300 dose, Branch mcg Conditiona l, Routine rho(D) Yes 300ug 300 mcg, Univer s immune 12-11 Intramuscu ity of globulin 23:21: lar, ONCE, Abdulkadir as (RHOGAM) 54 For 1 Medical syringe 300 dose, Branch mcg Conditiona l, Routine HYDROcodone Yes 2{tbl} 2 tablet, Univers -acetaminop - Oral, ity of hen (NORCO 23:17: Q6HPRN, [place] 5) 5-325 mg 46 Starting Medi halle tablet 2 on Fri Branch tablet 12/11/21 at 1817, Until Discontinu ed, Routine, Pain (scale 7-10), Alternate with Ibuprofen HYDROcodone Yes 1{tbl} 1 tablet, Univers -acetaminop 9-27 Oral, ity of hen (NORCO 23:17: Q6HPRN, [place] 5) 5-325 mg 46 Starting Medi halle tablet 1 on Fri Branch tablet 12/11/21 at 1817, Until Discontinu ed, Routine, Pain (scale 4-6), Alternate with Ibuprofen ibuprofen 2022-0 Yes 600mg 600 mg, Univ ers (IBU) 12-11 Oral, ity of tablet 600 23:17: Q6HPRN, [place] mg 46 Starting Medical on [facility] 12/11/21 at 1816, Until Discontinu ed, Routine, Pain (scale 1-3) diphenhydrA 2-0 Yes 25mg 25 mg, Univ ers MINE 12-11 Slow IV ity of (BENADRYL) 23:17: Push, [place] injection 46 Q6HPRN, Medical 25 mg Starting Branch on Fri12/11/21 at 1816, Until Discontinu ed, Routine, Itching diphenhydrA 2021-0 Yes 25mg 25 mg, Univ ers MINE 12-11 Oral, ity of (BENADRYL) 23:17: Q6HPRN, [place] tablet 25 46 Starting Medica l mg on [facility] 12/11/21 at 1816, Until Discontinu ed, Routine, Sleep, Itching ondansetron 2021-0 Yes 4mg 4 mg, Slow Univers (ZOFRAN 12-11 IV Push, ity of (PF)) 23:17: Q8HPRN, [place] injection 4 46 Starting Medi halle mg on [facility] 12/11/21 at 1816, Until Discontinu ed, Routine, Nausea and Vomiting (N/V) bisacodyL 2021-0 Yes 10mg 10 mg, Univer s (DULCOLAX) 12-11 Rectal, ity of suppository 23:17: QDAILYPRN, [place] 10 mg 46 Starting Medical on [facility] 12/11/21 at 1816, Until Discontinu ed, Routine, Constipati on simethicone 2021-0 Yes 160mg 160 mg, Un gene (GAS RELIEF 12-11 Oral, ity of (SIMETHICON 23:17: PC+HSPRN, [place] E)) 46 Starting Medical chewable on [facility] tablet 160 12/11/21 at mg 1816, Until Discontinu ed, Routine, Gas docusate 2021-0 Yes 200mg 200 mg, Unive rs (COLACE) 12-11 Oral, ity of capsule 200 23:17: QDAILYPRN, [place] mg 46 Starting Medical on [facility] 12/11/21 at 1817, Until Discontinu ed, Routine, Constipati on magnesium 2021-0 Yes 30mL 30 mL, Univer s hydroxide 12-11 Oral, ity of (MILK OF 23:17: QDAILYPRN, Abdulkad[place] as MAGNESIA) 46 Starting Medica l 400 mg/5 mL on Fri Branch suspension 12/11/21 at 30 mL 7, Until Discontinu ed, Routine, Constipati on lactated 2021-0 Yes 1000mL at 125 Unive rs ringers IV 12-11 mL/hr, ity of infusion 23:17: 1,000 mL, [place] 1,000 mL 46 IV Medical Infusion, Branch PRN, 1 dose, Starting on Fri12/11/21 at 1817, Until Discontinu ed, Routine HYDROcodone 2021-0 Yes 2{tbl} 2 tablet, Univers -acetaminop 12-11 Oral, ity of hen (NORCO 23:17: Q6HPRN, [place] 5) 5-325 mg 46 Starting Medi halle tablet 2 on Fri tablet 12/11/21 at 1817, Until Discontinu ed, Routine, Pain (scale 7-10), Alternate with Ibuprofen HYDROcodone 2021-0 Yes 1{tbl} 1 tablet, Univers -acetaminop 12-11 Oral, ity of hen (NORCO 23:17: Q6HPRN, [place] 5) 5-325 mg 46 Starting Medi halle tablet 1 on Fri Branch tablet 12/11/21 at 1817, Until Discontinu ed, Routine, Pain (scale 4-6), Alternate with Ibuprofen ibuprofen 2021-0 Yes 600mg 600 mg, Univ ers (IBU) 12-11 Oral, ity of tablet 600 23:17: Q6HPRN, [place] mg 46 Starting Medical on Fri Branch 12/11/21 at 1817, Until Discontinu ed, Routine, Pain (scale 1-3) diphenhydrA 2021-0 Yes 25mg 25 mg, Univ ers MINE 12-11 Slow IV ity of (BENADRYL) 23:17: Push, [place] injection 46 Q6HPRN, Medical 25 mg Starting Branch on Fri12/11/21 at 1817, Until Discontinu ed, Routine, Itching diphenhydrA 2021-0 Yes 25mg 25 mg, Univ ers MINE 12-11 Oral, ity of (BENADRYL) 23:17: Q6HPRN, [place] tablet 25 46 Starting Medica l mg on [facility] 12/11/21 at 1816, Until Discontinu ed, Routine, Sleep, Itching ondansetron 0 Yes 4mg 4 mg, Slow Univers (ZOFRAN 12-11 IV Push, ity of (PF)) 23:17: Q8HPRN, [place] injection 4 46 Starting Medi halle mg on 12/11/21 at 1816, Until Discontinu ed, Routine, Nausea and Vomiting (N/V) bisacodyL 0 Yes 10mg 10 mg, Univer s (DULCOLAX) 12-11 Rectal, ity of suppository 23:17: QDAILYPRN, [place] 10 mg 46 Starting Medical on [facility] 12/11/21 at 1816, Until Discontinu ed, Routine, Constipati on simethicone 0 Yes 160mg 160 mg, Un gene (GAS RELIEF 12-11 Oral, ity of (SIMETHICON 23:17: PC+HSPRN, [place] E)) 46 Starting Medical chewable on [facility] tablet 160 12/11/21 at mg 1816, Until Discontinu ed, Routine, Gas docusate 0 Yes 200mg 200 mg, Unive rs (COLACE) 12-11 Oral, ity of capsule 200 23:17: QDAILYPRN, [place] mg 46 Starting Medical on [facility] 12/11/21 at 1816, Until Discontinu ed, Routine, Constipati on magnesium 2021-0 Yes 30mL 30 mL, Univer s hydroxide 12-11 Oral, ity of (MILK OF 23:17: QDAILYPRN, Abdulkadir as MAGNESIA) 46 Starting Medica l 400 mg/5 mL on [facility] suspension 12/11/21 at 30 mL 1816, Until Discontinu ed, Routine, Constipati on lactated 2021-0 Yes 1000mL at 125 Unive rs ringers IV 12-11 mL/hr, ity of infusion 23:17: 1,000 mL, [place] 1,000 mL 46 IV Medical Infusion, Branch PRN, 1 dose, Starting on Fri12/11/21 at 1817, Until Discontinu ed, Routine ceFAZolin 2021- No 2000mg 2 g (2,000 Univers in 0.9% 12-11 mg), IV ity of sodium 21:05: 21:59 Piggyback, [place] chloride 07 :00 O.R. Medical (ANCEF) 2 HOLDING Branch gram/100 mL ONCE, 1 RTU 2 g dose, Starting on e 12/11/21 at 1605, Until Fri12/11/21 at 1659, Administer over 30 Minutes, 100 mL
Reas on for Anti-Infec tive: Surgical Prophylaxi s
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
Duration of therapy: within 24 hours of surgery sodium 2021- No 30mL 30 mL, Univers citrate-cit 12-11 Oral, ity of timo acid 15:10: 21:29 PRE-PROCED [place] (BICITRA) 26 :00 URE ONCE, Medic al 500-334 1 dose, Branch mg/5 mL Starting solution 30 on Fri mL 12/11/21 at 1010, Until Discontinu ed, Routine, Surgery/Pr ocedure ropivacaine 2021- No Epidural, Univers 0.2 % 12-11 CONTINUOUS ity of (NAROPIN 14:10: 21:25 PRN, [place] ()) 00 :33 Starting Medical epidural on e Branch infusion 12/11/21 at 0910, Until e 12/11/21 at 1625, Routine, Intra-op lidocaine-e 2021- No Intraderma Univers pinephrine 12-11 l, ONCE ity o f (XYLOCAINE 14:08: 21:25 INTRA [place] W/EPINEPHRI 00 :33 PROCEDURE, Dc dical NE) 1.5 Starting Branch %-1:200,000 on Tue injection 12/11/21 at 0908, Until e 12/11/21 at 1625, Routine, Intra-op proMETHazin 2021- No 25mg 25 mg, IV Univers e 12-11 Piggyback, ity of (PHENERGAN) 08:00: 10:28 at 200 Abdulkad[place] as 25 mg in NS 00 :00 mL/hr Medical 50 mL IV Administer Branc h piggyback over 15 (CNR) Minutes, ONCE NOW, 1 dose, On Fri12/11/21 at 0300, Routine oxytocin 2021- No 2mU/min at 2-40 Un gene (PITOCIN) 12-11 mL/hr, IV ity of 30 units in 06:23: 23:21 Infusion, [place] NS 500 mL 43 :51 TITRATE, Medica l IV infusion Starting Bran ch on Fri12/11/21 at 0123, Until Fri12/11/21 at 1821, LUDWIG butorphanol 2021- No 1mg 1 mg, Univ ers (STADOL) 12-11 Intravenou ity of injection 1 04:45: 10:13 s, ONCE, 1 [place] mg 00 :00 dose, On Medical [facility] Branch 12/10/21 at 2345, Routine sodium 2021- No 30mL 30 mL, Univers citrate-cit 12-10 Oral, ity of timo acid 18:52: 13:19 PRE-PROCED [place] (BICITRA) 31 :00 URE ONCE, Medic al 500-334 1 dose, Branch mg/5 mL Starting solution 30 on [facility] 12/10/21 at 1352, Until Discontinu ed, Routine, Surgery/Pr ocedure lactated 2021- No 500mL at 999 Unive rs ringers IV 12-10 mL/hr, 500 it y of infusion 18:52: 23:21 mL, IV [place] 500 mL 31 :51 Infusion, Medical PRN - SEE Branch INSTRUCTIO NS, Starting on Fri12/10/21 at 1352, Until Fri12/11/21 at 1821, Routine D5W-LR IV 2021- No 1000mL at 1-125 U nivers infusion 12-10 mL/hr, IV ity o f 1,000 mL 18:52: 23:21 Infusion, Abdulkadir as 31 :51 TITRATE, Medical Starting Branch on Fri12/10/21 at 1352, Until Fri12/11/21 at 1821, Routine proMETHazin Yes [id number] 25mg Take 1 Univers e 25 mg 4-21 tablet by ity of tablet 00:00: mouth [place] 00 every 6 Medical (six) Branch hours as needed for Nausea and Vomiting (N/V). proMETHazin 2021-0 Yes [id number] 25mg Take 1 Univers e 25 mg 4-21 tablet by ity of tablet 00:00: mouth [place] 00 every 6 Medical (six) Branch hours as needed for Nausea and Vomiting (N/V). proMETHazin 2021-0 Yes [id number] 25mg Take 1 Univers e 25 mg 4-21 tablet by ity of tablet 00:00: mouth [place] 00 every 6 Medical (six) Branch hours as needed for Nausea and Vomiting (N/V). proMETHazin 2021-0 Yes [id number] 25mg Take 1 Univers e 25 mg 4-21 tablet by ity of tablet 00:00: mouth [place] 00 every 6 Medical (six) Branch hours as needed for Nausea and Vomiting (N/V). proMETHazin Yes [id number] 25mg Take 1 Univers e 25 mg 4-21 tablet by ity of tablet 00:00: mouth [place] 00 every 6 Medical (six) Branch hours as needed for Nausea and Vomiting (N/V). proMETHazin 0 Yes [id number] 25mg Take 1 Univers e 25 mg 4-21 tablet by ity of tablet 00:00: mouth [place] 00 every 6 Medical (six) Branch hours as needed for Nausea and Vomiting (N/V). proMETHazin 2021- No [id number] 25mg Take 1 Univers e 25 mg 4-21 09-29 tablet by ity of tablet 00:00: 00:00 mouth [place] 00 :00 every 6 Medical (six) Branch hours as needed for Nausea and Vomiting (N/V). 2021- Yes [id number] 1{tbl} Take 1 U nivers multivitami 2-03 tablet by ity of n ( 00:00: mouth [place] VITAMIN) 00 daily. Medical tablet Branch 0 Yes [id number] 1{tbl} Take 1 U nivers multivitami 2-03 tablet by ity of n ( 00:00: mouth [place] VITAMIN) 00 daily. Medical tablet Branch 0 Yes [id number] 1{tbl} Take 1 U nivers multivitami 2-03 tablet by ity of n ( 00:00: mouth [place] VITAMIN) 00 daily. Medical tablet Branch Yes [id number] 1{tbl} Take 1 U nivers multivitami 2-03 tablet by ity of n ( 00:00: mouth [place] VITAMIN) 00 daily. Medical tablet Branch Yes [id number] 1{tbl} Take 1 U nivers multivitami 2-03 tablet by ity of n ( 00:00: mouth [place] VITAMIN) 00 daily. Medical tablet Branch Yes [id number] 1{tbl} Take 1 U nivers multivitami 2-03 tablet by ity of n ( 00:00: mouth [place] VITAMIN) 00 daily. Medical tablet Branch 2021- No [id number] 1{tbl} Take 1 Univers multivitami 2-03 - tablet by it y of n ( 00:00: 00:00 [place] VITAMIN) 00 :00 daily. Medical tablet Branch Immunizations Ordered Filled Immunization Date Status Comments [facility] Immunization Name Name Varicella 2021-12-14 Completed University of (varivax)(chicken 00:00:00 [place] M edical pox) Branch Varicella 2021-12-14 Completed University of (varivax)(chicken 00:00:00 [place] M edical pox) Branch Varicella 2021-12-14 Completed University of (varivax)(chicken 00:00:00 [place] M edical pox) Branch Varicella 2021-12-14 Completed University of (varivax)(chicken 00:00:00 [place] M edical pox) Branch TDAP 2021-09-27 Completed University of 00:00:00 [facility] TDAP 2021-09-27 Completed University of 00:00:00 [facility] TDAP 2021-09-27 Completed University of 00:00:00 [facility] TDAP 2021-09-27 Completed University of 00:00:00 [facility] TDAP 2021-09-27 Completed University of 00:00:00 [facility] TDAP 2021-09-27 Completed University of 00:00:00 [facility] TDAP 2021-09-27 Completed University of 00:00:00 [facility] TDAP 2021-09-27 Completed University of 00:00:00 [facility] TDAP 2021-09-27 Completed University 00:00:00 [place] [facility] TDAP 2021-09-27 Completed University 00:00:00 [facility] Vital Signs Vital Name Observation Time Observation Value Comments Source Systolic blood 2022-01-01 18:05:00 128 mm[Hg] Univer sity of pressure [place] [facility] Diastolic blood 2022-01-01 18:05:00 88 mm[Hg] Unive rsity of pressure [place] [facility] Heart rate 2022-01-01 18:05:00 86 /min [facility] [place] [facility] Body temperature 2022-01-01 18:05:00 36.17 Marlin Univ ersity of [place] [facility] Respiratory rate 2022-01-01 18:05:00 18 /min Univ ersity of [place] [facility] Body height 2022-01-01 18:05:00 170.2 cm [facility] [place] [facility] Body weight 2022-01-01 18:05:00 108.636 kg [facility] [place] [facility] BMI 2022-01-01 18:05:00 37.51 kg/m2 [facility] [place] [facility] Systolic blood 2021-12-19 15:04:00 128 mm[Hg] Univer sity of pressure [place] [facility] Diastolic blood 2021-12-19 15:04:00 84 mm[Hg] Unive rsity of pressure [place] [facility] Heart rate 2021-12-19 15:04:00 82 /min [facility] [place] [facility] Body temperature 2021-12-19 15:04:00 36.44 [place] Univ ers[facility] [place] [facility] Respiratory rate 2021-12-19 15:04:00 18 /min Univ ersity of [place] [facility] Body weight 2021-12-19 15:04:00 106.822 kg [facility] [place] [facility] BMI 2021-12-19 15:04:00 36.88 kg/m2 [facility] [place] [facility] Systolic blood 2021-12-14 16:51:00 142 mm[Hg] Univer sity of pressure [place] [facility] Diastolic blood 2021-12-14 16:51:00 92 mm[Hg] Unive rsity of pressure [place] [facility] Heart rate 2021-12-14 16:51:00 82 /min [facility]i ty [facility] [place] [facility] Body temperature 2021-12-14 16:51:00 36.28 [facility] Respiratory rate 2021-12-14 16:51:00 18 /min [facility] Oxygen saturation in 2021-12-14 16:51:00 99 /min [facility] Arterial blood by [facility] Pulse oximetry Branch Systolic blood 2021-12-11 23:15:00 135 mm[Hg] [facility] Diastolic blood 2021-12-11 23:15:00 87 mm[Hg] Unive rsity of [facility] Heart rate 2021-12-11 23:15:00 96 /min [facility] Respiratory rate 2021-12-11 23:15:00 23 /min [facility] Oxygen saturation in 2021-12-11 23:15:00 99 /min [facility] Arterial blood by [facility] Pulse oximetry Branch Body temperature 2021-12-11 22:51:00 36.72 [facility] Systolic blood 2021-12-10 15:23:00 140 mm[Hg] [facility] Diastolic blood 2021-12-10 15:23:00 92 mm[Hg] Unive [facility] Heart rate 2021-12-10 15:13:00 89 /min [facility] Body temperature 2021-12-10 15:12:00 36.56 [place] [facility] Respiratory rate 2021-12-10 15:12:00 18 /min [facility] Body height 2021-12-10 15:12:00 170.2 cm [facility] Body weight 2021-12-10 15:12:00 118.927 kg [facility] BMI 2021-12-10 15:12:00 41.06 kg/m2 [facility] Systolic blood 2021-12-07 19:11:00 132 mm[Hg] [facility] Diastolic blood 2021-12-07 19:11:00 92 mm[Hg] Unive [facility] Heart rate 2021-12-07 19:11:00 83 /min [facility] [place] [facility] Body temperature 2021-12-07 19:11:00 36.83 [facility] Respiratory rate 2021-12-07 19:11:00 18 /min [facility] Body height 2021-12-07 19:11:00 170.2 cm [facility] Body weight 2021-12-07 19:11:00 120.657 kg [facility] BMI 2021-12-07 19:11:00 41.66 kg/m2 [facility] Oxygen saturation in 2021-12-07 19:11:00 99 /min [facility] Arterial blood by [facility] Pulse oximetry Branch Systolic blood 2021-11-30 19:07:00 134 mm[Hg] Univer sity of pressure [facility] Diastolic blood 2021-11-30 19:07:00 90 mm[Hg] Unive [facility] Heart rate 2021-11-30 19:07:00 85 /min [facility]i [facility] Body temperature 2021-11-30 19:07:00 36.5 [place] [facility] Respiratory rate 2021-11-30 19:07:00 18 /min [facility] Body height 2021-11-30 19:07:00 170.2 cm [facility] Body weight 2021-11-30 19:07:00 118.077 kg Universi ty [facility] BMI 2021-11-30 19:07:00 40.77 kg/m2 [facility] Procedures Procedure Date / Time Performing Clinician Source Performed CBC WITH DIFF 2021-12-12 09:54:00 Angel Fina [facility] CBC WITH DIFF 2021-12-12 09:54:[address] [facility] SECTION 2021-12-11 21:37:00 Juan Ramon Ingram [facility] SECTION 2021-12-11 21:37:00 Juan Ramon Ingram [facility] CENTRAL NEURAXIAL BLOCK 2021-12-11 14:18:09 Irma Joy [facility] COVID-19 (ID NOW RAPID 2021-12-10 19:30:00 Adela Patrick [facility] TESTING) [facility] LAB ONLY COVID 2021-12-10 19:30:00 Adela Patrick [facility] INTERPRETATION [facility] COVID-19 (ID NOW RAPID 2021-12-10 19:30:00 Adela Patrick [facility] TESTING) [facility] LAB ONLY COVID 2021-12-10 19:30:00 Adela Patrick [facility] INTERPRETATION [facility] SGOT (ASPARTATE AMINO 2021-12-10 19:28:00 Yeimy Gotti [facility]) Medical Branch CREATININE 2021-12-10 19:28:00 Yeimy Gotti [facility] ALANINE AMINO 2021-12-10 19:28:00 Yeimy Gotti [facility] TRANSFERASE([facility] Medical Branch LACTATE DEHYDROGENASE 2021-12-10 19:28:00 [facility] URIC ACID 2021-12-10 19:28:00 Yeimy Gotti [facility] CBC WITH DIFF 2021-12-10 19:28:00 Yeimy Gotti [facility] URINALYSIS 2021-12-10 19:28:00 Yeimy Gotti [facility] HEPATITIS B SURFACE 2021-12-10 19:28:00 Yeimy Gotti [facility] ANTIGEN [facility] PROTEIN CREAT RATIO URINE 2021-12-10 19:28:00 Yeimy Gotti [facility] RANDOM Medical Branch GALV ONLY - [place] 2021-12-10 19:28:00 [facility] IGG/IGM Medical Branch SGOT (ASPARTATE AMINO 2021-12-10 19:28:00 [facility] TRANSFER) Medical Branch CREATININE 2021-12-10 19:28:00 Yeimy Gotti [facility] ALANINE AMINO 2021-12-10 19:28:00 Yeimy Gotti [facility] TRANSFERASE([facility] Medical Branch LACTATE DEHYDROGENASE 2021-12-10 19:28:00 RaynhamYeimy ibrahim [facility] URIC ACID 2021-12-10 19:28:00 Yeimy Gotti [facility] CBC WITH DIFF 2021-12-10 19:28:00 Yeimy Gotti [facility] URINALYSIS 2021-12-10 19:28:00 Yeimy Gotti [facility] HEPATITIS B SURFACE 2021-12-10 19:28:00 Yeimy Gotti [facility] PROTEIN CREAT RATIO URINE 2021-12-10 19:28:00 Yeimy Gotti [facility] GALV ONLY - [place] 2021-12-10 19:28:00 Yeimy Gotti [facility] IGG/IGM [facility] HB ABO GROUPING 2021-12-10 19:04:00 Yeimy Gotti [facility] RHO (D) IMMUNE GLOBULIN 2021-12-10 19:04:00 Fina Ortiz [facility] HB ABO GROUPING 2021-12-10 19:04:00 Yeimy Gotti [facility] RHO (D) IMMUNE GLOBULIN 2021-12-10 19:04:00 Angel [facility] POCT URINALYSIS 2021-12-10 15:16:00 Zari Baer [facility] POCT URINALYSIS 2021-12-07 19:13:00 Zari Baer [facility] POCT URINALYSIS 2021-11-30 19:08:00 Andres Baerilbrittany Tolbert [facility] Encounters Start End Encounter Admission Attending Care Care Encounter Source Date/Time Date/Time Type Type Clinicians Facility Department ID 2022-04-09 2022-04-09 Outpatient Agustin BARRETT [facility] [id number] Univers 09:15:00 09:15:00 ELVIA [facility] 2022-02-18 2022-02-18 Outpatient R KEYUR [facility] [id number] Univers 14:15:00 14:15:00 ZARI gardner [facility] 2022-01-22 2022-01-22 Outpatient R BROOKS [facility] [id number] Univers 09:45:00 09:45:00 CARRIE gardner [facility] 2022-01-01 2022-01-01 Outpatient Agustin GUY [facility] [id number] Univers 12:45:00 13:37:39 CARRIE gardner [facility] 2022-01-01 2022-01-01 Routine Provider, Jannet Temp [facility] 1 .2.840.114 [id number] Univers 12:45:00 13:37:39 Carrie Guy BEHAVIORAL HEALTH WORKER 350.1.13.1 0 ity of Visit REGIONAL 4.2.7.2.686 Abdulkadir [address] MATERNAL [phone] [facility] ical & CHILD [address] [place] [address] 2021-12-19 2021-12-19 Nurse [facility] 1.2 .840.114 [id number] Univers 10:00:00 10:12:38 Visit Zari Baer BEHAVIORAL HEALTH WORKER 350.1.13. 10 ity of [facility] 4.2.7.2.686 Abdulkadir as MATERNAL [id number] [facility] ical & CHILD [address] [place] [address] 2021-12-19 2021-12-19 Outpatient R KEYUR [facility] [id number] Univers 10:00:00 10:00:00 ZARI gardner [facility] 2021-12-10 2021-12-14 [facility] Adela HELMS 1.2.840.114 [id number] Univers 13:29:00 16:35:00 Encounter Frank LIU 350.1.13.10 ity of [facility] 4.2.7.2.686 Abdulkadir as [id number] [facility] 134 Branch 2021-12-11 2021-12-11 Surgery SCOOTER Ingram 1.2.840.114 [id number] Univers 16:24:00 18:15:00 Juan Ramon LIU 350.1.13.10 i ty [facility] 4.2.7.2.686 Abdulkadir as [id number] [facility] 013 Branch 2021-12-11 2021-12-11 Anesthesia Joy, Irmajessica HELMS 1.2.840.11 [id number] Univers 08:20:00 16:45:00 Event Juan Alberto Tian 350.1.13.10 ity [facility] 4.2.7.2.686 Abdulkadir as [id number] [address] 2021-12-10 2021-12-10 Outpatient R AKINSIPE, [facility] [id number] Univers 10:00:00 10:29:37 ZARI ity o [facility] 2021-12-10 2021-12-10 Routine Akinsipe, [facility] 1.2.852.134 [id number] Univers 10:00:00 10:29:37 Zari C BEHAVIORAL HEALTH WORKER 350.1.13.10 ity of Visit [facility] 4.2.7.2.686 Abdulkadir as MATERNAL [id number] [facility] & CHILD [address] [place] [address] 2021-12-10 2021-12-10 Outpatient R AKINSIPE, [facility] ELIN [id number] Univers 10:00:00 10:29:37 ZARI ity o [facility] 2021-12-07 2021-12-07 Outpatient R AKINSIPE, [facility] [id number] Univers 14:00:00 14:23:44 ZARI ity o [facility] 2021-12-07 2021-12-07 Routine Akinsipe, [facility] 1.2.125.289 [id number] Univers 14:00:00 14:23:44 Zari C BEHAVIORAL HEALTH WORKER 350.1.13.10 ity of Visit [facility] 4.2.7.2.686 Abdulkadir as MATERNAL [id number] [facility] & CHILD [address] [place] [address] 2021-11-30 2021-11-30 Outpatient R AKINSIPE, [facility] [id number] Univers 14:00:00 14:23:51 ZARI ity o [facility] 2021-11-30 2021-11-30 Outpatient R AKINSIPE, [facility] [id number] Univers 14:00:00 14:23:51 ZARI ity o [facility] 2021-11-30 2021-11-30 Routine Akinsipe, [facility] 1.2.619.896 [id number] Univers 14:00:00 14:23:51 Zari C BEHAVIORAL HEALTH WORKER 350.1.13.10 ity of Visit REGIONAL 4.2.7.2.686 Abdulkadir as MATERNAL [id number] [facility] CH[facility] [address] [place] [address] 2021-11-26 2021-11-26 Telephone Akinpe, [facility] 1.2.840.114 [id number] Univers 00:00:00 00:00:00 Zari C BEHAVIORAL HEALTH WORKER 350.1.13.10 ity of REGIONAL 4.2.7.2.686 Abdulkadir as MATERNAL [id number] [address] 2021-11-23 2021-11-23 Outpatient R AKINSIPE, [facility] [id number] Univers 14:45:00 15:30:26 ZARI ity o f [facility] 2021-11-23 2021-11-23 Routine Akinpe, [facility] 1.2.848.926 [id number] Univers 14:45:00 15:30:26 Zari C BEHAVIORAL HEALTH WORKER 350.1.13.10 ity of Visit REGIONAL 4.2.7.2.686 Abdulkadir as MATERNAL [id number] [address] 2021-11-23 2021-11-23 Outpatient R AKINSIPE, [facility] [id number] Univers 14:45:00 15:30:26 ZARI ity o [facility] 2021-11-09 2021-11-09 Outpatient R AKINSIPE, [facility] [id number] Univers 16:00:00 16:19:35 ZARI ity o f [facility] 2021-11-09 2021-11-09 Routine Akinsipe, [facility] 1.2.777.761 [id number] Univers 16:00:00 16:19:35 Zari C BEHAVIORAL HEALTH WORKER 350.1.13.10 ity of Visit REGIONAL 4.2.7.2.686 Abdulkadir as MATERNAL [id number] [facility] & CHILD [address] [place] [address] 2021-10-26 2021-10-26 Outpatient R AKINSIPE, [facility] [id number] Univers 16:00:00 16:21:05 ZARI ity o f [facility] 2021-10-26 2021-10-26 Routine Akinsipe, [facility] 1.2.057.808 [id number] Univers 16:00:00 16:21:05 Zari C BEHAVIORAL HEALTH WORKER 350.1.13.10 ity of Visit REGIONAL 4.2.7.2.686 Abdulkadir as MATERNAL [id number] [facility] CHILD [address] [place] [address] 2021-10-25 2021-10-25 Outpatient R AKINSIPE, [facility] [id number] Univers 16:00:00 16:00:00 ZARI ity o [facility] 2021-10-11 2021-10-11 Routine Akinsipe, [facility] 1.2.953.407 [id number] Univers 14:15:00 15:24:50 Zari C BEHAVIORAL HEALTH WORKER 350.1.13.10 ity of Visit REGIONAL 4.2.7.2.686 Abdulkadir as MATERNAL [id number] [facility] & CHILD [address] [place] [address] 2021-10-11 2021-10-11 Outpatient R AKINSIPE, [facility] [id number] Univers 14:15:00 15:24:50 ZARI ity o [facility] 2021-10-11 2021-10-11 Outpatient R AKINSIPE, [facility] [id number] Univers 14:15:00 14:15:00 ZARI ity o [facility] 2021-09-28 2021-09-28 Telephone Akinsipe, [facility] 1.2.840.114 [id number] Univers 00:00:00 00:00:00 Zari C BEHAVIORAL HEALTH WORKER 350.1.13.10 ity of REGIONAL 4.2.7.2.686 Abdulkadir as MATERNAL [id number] [facility] & [address] 2021-09-27 2021-09-27 Outpatient R AKINSIPE, [facility] [id number] Univers 15:45:00 16:42:10 ZARI ity o [facility] 2021-09-27 2021-09-27 Routine Akinsipe, [facility] 1.2.751.789 [id number] Univers 15:45:00 16:42:10 Zari C BEHAVIORAL HEALTH WORKER 350.1.13.10 ity of Visit REGIONAL 4.2.7.2.686 [address]ir [address] MATERNAL [id number] 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 114 [id number] Univers 07:45:00 08:01:09 Visit Akinsipe Zari C BEHAVIORAL HEALTH WORKER 350.1.13. 10 ity of REGIONAL 4.2.7.2.686 [address] MATERNAL [id number] [facility] ical & CHILD [address] [place] [address] 2021-09-07 2021-09-07 Telephone [facility] 1.2.840.114 [id number] Univers 00:00:00 00:00:00 Zari C BEHAVIORAL HEALTH WORKER 350.1.13.10 ity of REGIONAL 4.2.7.2.686 [address] MATERNAL [id number] [facility] ical & CHILD [address] [place] [address] 2021-09-06 2021-09-06 Outpatient R AKINSIPE, [facility] [id number] Univers 14:00:00 14:52:09 ZARI millan [facility] 2021-09-06 2021-09-06 Routine Akinpe, [facility] 1.2.547.111 [id number] Univers 14:00:00 14:52:09 Zari C BEHAVIORAL HEALTH WORKER 350.1.13.10 ity of Visit REGIONAL 4.2.7.2.686 Abdulkadir as MATERNAL [id number] Med ical & CHILD [address] [place] [address] 2021-09-06 2021-09-06 Outpatient R KEYUR [facility] [id number] Univers 14:00:00 14:52:09 ZARI ovalle o f [facility] 2021-09-06 2021-09-06 Letter [facility] 1.2.876.705 [id number] Univers 00:00:00 00:00:00 (Out) Zari Tolbert BEHAVIORAL HEALTH WORKER 350.1.13.10 ity of [facility] 4.2.7.2.686 Abdulkadir as MATERNAL [id number] [facility] & CHILD [address] [place] [address] 2021-09-05 2021-09-05 Abstract [facility] 1.2.840.114 [id number] Univers 00:00:00 00:00:00 Zari Tolbert BEHAVIORAL HEALTH WORKER 350.1.13.10 ity of [facility] 4.2.7.2.686 Abdulkadir as MATERNAL [id number] [facility] & CHILD [address] [place] [address] 2021-08-30 2021-08-30 Professor Of Fine Art 5, [facility] Us Room UNIVERSIT 1 .2.840.114 [id number] Univers 09:15:00 10:00:00 Visit Belia Orosco [facility] 350.1.13.10 ity of [facility] 4.2.7.2.[id number] [address] 2021-08-30 2021-08-30 Outpatient P LEIGH ANN [facility] [id number] Univers 09:15:00 09:15:00 BELIA ovalle [facility] 2021-08-23 2021-08-23 [facility]ady [facility] 1.2.840.114 [id number] Univers 18:20:00 18:40:00 Care [facility] 350.1.13.10 it y [facility] 4.2.7.2.686 Abdulkadir as SISI?BLEA [phone] [address] MEDICAL OFFICE BUILDING 2021-08-23 2021-08-23 Outpatient R JHON [facility] [id number] Univers 18:20:00 18:20:00 LAVERNE ity [facility] 2021-08-09 2021-08-09 Outpatient R KEYUR [facility] [id number] Univers 14:45:00 15:11:15 ZARI ity o f [facility] 2021-08-09 2021-08-09 Routine [facility] 1.2.124.554 [id number] Univers 14:45:00 15:11:15 Zari C BEHAVIORAL HEALTH WORKER 350.1.13.10 ity of Visit [facility] 4.2.7.2.686 Abdulkadir as MATERNAL [id number] Med ical & CHILD 107 [facility] 2021-08-02 2021-08-02 Abstract [facility] 1.2.840.114 [id number] Univers 00:00:00 00:00:00 Zari C BEHAVIORAL HEALTH WORKER 350.1.13.10 ity of REGIONAL 4.2.7.2.686 Abdulkadir as MATERNAL [phone] Med ical & CHILD 107 [facility] 2021-07-30 2021-07-30 Professor Of Fine Art 5, [facility] Us Room UNIVERSIT 1 .2.840.114 [id number] Univers 08:00:00 09:42:31 Visit Belia Orosco [facility] 350.1.13.10 ity of [facility] 4.2.7.2.[place] [id number] [address] 2021-07-30 2021-07-30 Outpatient P LEIGH ANN [facility] [id number] Univers 08:00:00 09:42:31 BELIA ovalle [facility] 2021-07-30 2021-07-30 Outpatient P LEIGH ANN [facility] [id number] Univers 08:00:00 08:00:00 BELIA ovalle [facility] 2021-07-18 2021-07-18 Telephone [facility] 1.2.840.114 [id number] Univers 00:00:00 00:00:00 Zari C BEHAVIORAL HEALTH WORKER 350.1.13.10 ity of REGIONAL 4.2.7.2.686 Abdulkadir as MATERNAL [id number] Med ical & CHILD [address] [facility] 2021-07-12 2021-07-12 Outpatient R AKINSIPE, [facility] [id number] Univers 14:45:00 15:59:54 ZARI millan [facility] 2021-07-12 2021-07-12 Routine Akinsipe, [facility] 1.2.465.211 [id number] Univers 14:45:00 15:00:00 Zari C BEHAVIORAL HEALTH WORKER 350.1.13.10 ity of Visit [facility] 4.2.7.2.686 Abdulkadir as MATERNAL [id number] [facility] & CHILD [address] [place] [address] 2021-07-12 2021-07-12 Outpatient R AKINSIPE, [facility] [id number] Univers 14:45:00 14:45:00 ZARI millan [facility] 2021-07-12 2021-07-12 Outpatient R AKINSIPE, [facility] [id number] Univers 14:45:00 14:45:00 ZARI millan [facility] 2021-07-12 2021-07-12 Letter Akinpe, [facility] 1.2.513.484 [id number] Univers 00:00:00 00:00:00 (Out) Zari C BEHAVIORAL HEALTH WORKER 350.1.13.10 ity of [facility] 4.2.7.2.686 Abdulkadir as MATERNAL [id number] [address] 2021-07-05 2021-07-05 Emergency X SINGER [facility] ERT [id number] Univers 06:29:00 09:27:00 FABRIZIO ovalle [facility] 2021-07-05 2021-07-05 Emergency [facility] 1.2.405.608 [id number] Univers 06:29:00 09:27:00 Fabriziochance MORELOS 350.1.13.10 i ty [facility] 4.2.7.2.686 [facility] [id number] [address] 2021-07-05 2021-07-05 Emergency X SINGER [facility] ERT [id number] Univers 06:29:00 09:27:00 FABRIZIO ovalle of [facility] 2021-07-04 2021-07-04 Telephone [facility] 1.2.840.114 [id number] Univers 00:00:00 00:00:00 Zari C BEHAVIORAL HEALTH WORKER 350.1.13.10 ity of REGIONAL 4.2.7.2.686 Abdulkadir as MATERNAL [id number] Med ical & CHILD [address] [place] [address] 2021-06-14 2021-06-14 Outpatient R KEYUR [facility] [id number] Univers 15:30:00 15:57:10 ZARI ity o f [facility] 2021-06-14 2021-06-14 Routine [facility] 1.2.482.123 [id number] Univers 15:30:00 15:57:10 Zari C BEHAVIORAL HEALTH WORKER 350.1.13.10 ity of Visit REGIONAL 4.2.7.2.686 Abdulkadir as MATERNAL [id number] Med ical & CHILD [address] [place] [address] 2021-06-14 2021-06-14 Letter [facility] 1.2.381.031 [id number] Univers 00:00:00 00:00:00 (Out) Zari C BEHAVIORAL HEALTH WORKER 350.1.13.10 ity of REGIONAL 4.2.7.2.686 Abdulkadir as MATERNAL [id number] Med ical & CHILD [address] [place] [address] 2021-06-14 2021-06-14 Abstract [facility] 1.2.840.114 [id number] Univers 00:00:00 00:00:00 Zari C BEHAVIORAL HEALTH WORKER 350.1.13.10 ity of REGIONAL 4.2.7.2.686 Abdulkadir as MATERNAL [id number] [facility] ical & CHILD [address] [place] [address] 2021-06-13 2021-06-13 Professor Of Fine Art Lab, [facility] 1.2.840. 114 [id number] Univers 14:00:00 14:10:30 Visit Tamia Cloud BEHAVIORAL HEALTH WORKER 350.1. 13.10 ity of REGIONAL 4.2.7.2.686 Abdulkadir as MATERNAL [id number] Med ical & CHILD 124 [facility] 2021-06-13 2021-06-13 [facility] [id number] Univers 14:00:00 14:10:30 FRANK it y of TAMIA Rod [facility] 2021-06-13 2021-06-13 [facility] [id number] Univers 14:00:00 14:00:00 FRANK it y of TAMIA Rod [facility] 2021-06-13 2021-06-13 Professor Of Fine Art 2, [facility] Us Room [facility] 1.2. 840.114 [id number] Univers 13:00:00 13:58:46 Visit Tamia Cloud BEHAVIORAL HEALTH WORKER 350.1. 13.10 ity of REGIONAL 4.2.7.2.686 Abdulkadir as MATERNAL [id number] [facility] CHILD [address] [place] [address] 2021-06-13 2021-06-13 Abstract Keyur, [facility] 1.2.840.114 [id number] Univers 00:00:00 00:00:00 Zari Tolbert BEHAVIORAL HEALTH WORKER 350.1.13.10 ity of REGIONAL [id number] [address] MATERNAL [phone] [facility] ical & CHILD 107 [facility] 2021-06-06 2021-06-06 Outpatient P [facility] [id number] Univers 14:00:00 14:00:00 ity [facility] 2021-06-06 2021-06-06 Outpatient P [facility] [id number] Univers 14:00:00 14:00:00 ity [facility] 2021-06-06 2021-06-06 Professor Of Fine Art 2, [facility] Us Room [facility] 1.2. 840.114 [id number] Univers 13:00:00 13:45:00 Visit Steven Cardenas BEHAVIORAL HEALTH WORKER [id number] ity of REGIONAL [id number] Abdulkadir as MATERNAL [phone] [facility] ical & CHILD [address] [place] [address] 2021-06-06 2021-06-06 Outpatient P ANJELICA CARDENAS SCMB [id number] Univers 13:00:00 13:00:00 STEVEN ity of [facility] 2021-06-06 2021-06-06 Abstract [facility] 1.2.840.114 [id number] Univers 00:00:00 00:00:00 Zari C BEHAVIORAL HEALTH WORKER 350.1.13.10 ity of REGIONAL 4.2.7.2.686 Abdulkadir as MATERNAL [id number] [facility] [address] [place] [address] 2021-05-17 2021-05-17 [facility] [id number] Univers 13:00:00 13:31:06 ZARI richardscoral o [facility] [place] 2021-05-17 2021-05-17 [facility] [id number] Univers 13:00:00 13:31:06 Zari C BEHAVIORAL HEALTH WORKER 350.1.13.10 ity of Visit REGIONAL 4.2.7.2.686 Abdulkadir as MATERNAL [id number] [address] 2021-05-17 2021-05-17 [facility] [id number] Univers 13:00:00 13:31:06 ZARI mauricecoral o [facility] [place] 2021-05-17 2021-05-17 [facility] [id number] Univers 13:00:00 13:00:00 ZARI ovalle o [facility] [place] 2021-05-17 2021-05-17 Letter [facility] [id number] Univers 00:00:00 00:00:00 (Out) Zari C BEHAVIORAL HEALTH WORKER 350.1.13.10 ity of REGIONAL 4.2.7.2.686 Abdulkadir as MATERNAL [phone] [facility] & [address] 2021-05-08 2021-05-08 Telephone [facility] 1.2.840.114 [id number] Univers 00:00:00 00:00:00 Zari C BEHAVIORAL HEALTH WORKER 350.1.13.10 ity of REGIONAL 4.2.7.2.686 Abdulkadir as MATERNAL [id number] [facility] [address] [place] [address] 2021-05-01 2021-05-01 Emergency X BRADEN [facility] ERT [id number] Univers 07:03:00 08:57:00 ANNA ity of [facility] 2021-05-01 2021-05-01 Emergency [facility] 1.2.840.114 [id number] Univers 07:03:00 08:57:00 Anna Reynoso ULSTER 350.1.13.10 ity [facility] 4.2.7.2.686 [place] [facility] [phone] [place] 617614 [place] 2021-05-01 2021-05-01 Emergency [facility] E[facility] [id number] Univers 07:03:00 08:57:00 ANNA ity [facility] 2021-05-01 2021-05-01 Orders Doctor SCOOTER 1.2.840.114 [id number] Univers 00:00:00 00:00:00 Only Unassigned, ALEXA 350.1.13.10 ity of [place] [facility] 4.2.7.2.686 Abdulkadir as [id number] [address] 2021-04-23 2021-04-23 Telephone [facility] 1.2.840.114 [id number] Univers 00:00:00 00:00:00 Zari Tolbert BEHAVIORAL HEALTH WORKER 350.1.13.10 ity of [facility] 4.2.7.2.686 Abdulkadir as MATERNAL [id number] [facility] [address] [place] [address] 2021-04-19 2021-04-19 Outpatient R KEYUR [facility] [id number] Univers 08:00:00 10:24:08 ZARI millan f [facility] 2021-04-19 2021-04-19 Initial [facility] [id number] Univers 08:30:00 10:16:33 Zari Tlobert BEHAVIORAL HEALTH WORKER 350.1.13.10 ity of Visit [facility] 4.2.7.2.686 Abdulkadir as MATERNAL [id number] [facility] [address] [place] [address] 2021-04-19 2021-04-19 Outpatient R KEYUR, [facility] [id number] Univers 08:30:00 10:16:33 ZARI ity o f [facility] 2021-04-19 2021-04-19 Outpatient R ESTHERPE, [facility] [id number] Univers 08:30:00 10:16:33 ZARI ity o f [facility] 2021-04-19 2021-04-19 Outpatient R EKYUR, [facility] [id number] Univers 08:30:00 10:16:33 ZARI richardsy o f [facility] 2021-04-19 2021-04-19 Orders Doctor SCOOTER 1.2.840.114 [id number] Univers 00:00:00 00:00:00 Only Unassigned, ALEXA 350.1.13.10 ity of [facility] 4.2.7.2.686 [facility] [id number] [facility] 009 [place] 2019-06-04 2019-06-04 Emergency [facility] [id number] Univers 15:23:11 18:34:00 Jenniffer Morelos 350.1.13.[address] [facility] 4.2.7.2.686 [facility] [id number] [facility] 084 [place] 2019-06-04 2019-06-04 Emergency X [facility] ERT [id number] Univers 15:23:11 18:34:00 JENNIFFER ovalle [facility] 2019-06-04 2019-06-04 Emergency [facility] [id number] 15:23:11 18:34:00 Jenniffer Morelos 350.1.13.10 [place] 4.2.7.2.686 [place] [id number] [id number] Results Test Description Test Time Test Comments Results Result Comments Source RHO (D) IMMUNE GLOBULIN 2021-12-12 00:17:34 Test Item Value Reference Range Interpretation Comme nts RHIG CANDIDATE? (test code = No- see comment Patient is not a candidate for RhIg- 5055) Patient is Rh P ositive.Performed at [facility] Laboratory Services - [facility] Blood [address] [place], [place] [address]Yyuj Free: [phone] A No. [id number] [facility]) IMMUNE [id number] 00:17:34 Test Item Value Reference Range Interpretation Comments RHIG CANDIDATE? No- see comment Patient i s not a (test code = candidate for R [facility]- 5055) Patient is Rh Positive.Perfor med at [facility] Laboratory Services - [facility] Blood [address] [address]Rrqf Free: [phone] A No. [id number] [facility] ONLY - SYPHILIS [id number] 16:21:06 Test Item Value Reference Range Interpretation Comments Syphilis IgG/IgM (test Non-reactive Non-reactive code = 25599-9) BRENDA (test code = BRENDA) Non-reactive - No serologic evidence of T. pallidum infection. Cannot exclude incubating or early syphilis. Submit a second specimen in 2-4 weeks if syphilis is clinically suspected. Equivocal - Further testing to follow. Reactive - Further testing to follow. Lab Interpretation (test Normal code = 88147-4) [facility] ONLY - SYPHILIS [id number] 16:21:06 Test Item Value Reference Range Interpretation Comments Syphilis IgG/IgM (test Non-reactive Non-reactive code = 42175-8) BRENDA (test code = BRENDA) Non-reactive - No serologic evidence of T. pallidum infection. Cannot exclude incubating or early syphilis. Submit a second specimen in 2-4 weeks if syphilis is clinically suspected. Equivocal - Further testing to follow. Reactive - Further testing to follow. Lab Interpretation (test Normal code = 25893-8) [facility] and Screen - ONCE [id number] 20:51:46 Test Item Value Reference Range Interpretation Comments ABO & RH (test code O POSITIVE Performe d at [facility] = 20) Laboratory Serv [facility] Blood [facility]3 [address] [facility] [address]Nhsy Free: [phone] A No. [id number] IAT (test code = Negative Performed a t [facility] 1185) Laboratory Serv [facility] Blood Bank3 [facility] s [address]Lfuf Free: [phone] A No. [id number] [facility] Screen - ONCE [id number] 20:51:46 Test Item Value Reference Range Interpretation Comments ABO & RH (test code O POSITIVE Performe d at [facility] = 20) Laboratory Serv [facility] Blood Bank3 [address] [facility] [address]Nkpk Free: [phone] A No. [id number] IAT (test code = Negative Performed a t [facility] 1185) Laboratory Serv [facility] Blood Bank3 [address] [facility] [address]Ddhi Free: [phone] A No. [id number] [facility] [id number] 20:47:17 Test Item Value Reference Range Interpretation Comments HBsAg Semi-Quantitative (test code = Negative Negative 5195-3) [facility] [place] B Surface [id number] 20:47:17 Test Item Value Reference Range Interpretation Comments HBsAg Semi-Quantitative (test code = Negative Negative 5195-3) [facility] Center[facility] [id number] 20:16:32 Test Item Value Reference Range Interpretation Comments URIC ACID (test code = 7440970933) 4.8 mg/dL 2.9-6 Lab Interpretation (test code = Normal 81876-9) [facility] [id number] 20:16:32 Test Item Value Reference Range Interpretation Comments CREATININE (test code 0.63 mg/dL 0.5-1.04 = 7084967327) eGFR (test code = mL/min/1.73m2 7747362709) BRENDA (test code = BRENDA) Association of Glomerular Filtration Rate (GFR) and Staging of Kidney Disease* + + +- +| GFR (mL/min/1.73 m2) ?| With Kidney Damage ?| ?Without Kidney Damage+ ------+ ----+ ------+| ?>90 ?| ?Stage one ?| ? Normal ?+ -+ + -+| ?60-89 ?| ?Stage two ?| ? Decreased GFR ? + + +- +| ?30-59 ?| ?Stage three ?| ? Stage three ? + + +- +| ?15-29 ?| ?Stage four ? | ? Stage four ?+ -+ + -+| ?<15 (or dialysis) ? ?| ?Stage five ? | ? Stage five ?+ -+ + -+ *Each stage assumes the associated GFR level has been in effect for at least three months. ?Stages 1 to 5, with or without kidney disease, indicate chronic kidney disease. Notes: Determination of stages one and two (with eGFR >59mL/min/1.73 m2) requires estimation of kidney damage for at least three months as defined by structural or functional abnormalities of the kidney, manifested by either:Pathological abnormalities or Markers of kidney damage (including abnormalities in the composition of the blood or urine or abnormalities in imaging tests). [facility] Center[facility]OT (Asparate Amino Transfer)2021-12-10 20:16:32 Test Item Value Reference Range Interpretation Comments AST(SGOT) (test code = 2426165511) 17 U/L 13-40 Lab Interpretation (test code = Normal 45549-8) [facility] CenterAlanine Amino Transferase (SGPT)2021-12-10 20:16:32 Test Item Value Reference Range Interpretation Comments ALTv (test code = 1742-6) 9 U/L 5-35 Lab Interpretation (test code = Normal 98182-5) [facility] Center[facility] Acid [id number] 20:16:32 Test Item Value Reference Range Interpretation Comments URIC ACID (test code = 7199621416) 4.8 mg/dL 2.9-6 Lab Interpretation (test code = Normal 27144-2) [facility] CenterSerum Vuoqrfxmiq2220-86-10 20:16:32 Test Item Value Reference Range Interpretation Comments CREATININE (test code 0.63 mg/dL 0.5-1.04 = 5666389549) eGFR (test code = mL/min/1.73m2 1254628985) BRENDA (test code = BRENDA) Association of Glomerular Filtration Rate (GFR) and Staging of Kidney Disease* + + +- +| GFR (mL/min/1.73 m2) ?| With Kidney Damage ?| ?Without Kidney Damage+ ------+ ----+ ------+| ?>90 ?| ?Stage one ?| ? Normal ?+ -+ + -+| ?60-89 ?| ?Stage two ?| ? Decreased GFR ? + + +- +| ?30-59 ?| ?Stage three ?| ? Stage three ? + + +- +| ?15-29 ?| ?Stage four ? | ? Stage four ?+ -+ + -+| ?<15 (or dialysis) ? ?| ?Stage five ? | ? Stage five ?+ -+ + -+ *Each stage assumes the associated GFR level has been in effect for at least three months. ?Stages 1 to 5, with or without kidney disease, indicate chronic kidney disease. Notes: Determination of stages one and two (with eGFR >59mL/min/1.73 m2) requires estimation of kidney damage for at least three months as defined by structural or functional abnormalities of the kidney, manifested by either:Pathological abnormalities or Markers of kidney damage (including abnormalities in the composition of the blood or urine or abnormalities in imaging tests). [facility] (Asparate Amino Transfer)2021-12-10 20:16:32 Test Item Value Reference Range Interpretation Comments AST(SGOT) (test code = 3665145500) 17 U/L 13-40 Lab Interpretation (test code = Normal 74700-2) [facility] Center[facility] Amino Transferase (SGPT)2021-12-10 20:16:32 Test Item Value Reference Range Interpretation Comments ALTv (test code = 1742-6) 9 U/L 5-35 Lab Interpretation (test code = Normal 48318-3) [facility] CenterLactate [id number] 20:15:10 Test Item Value Reference Range Interpretation Comments LDH (test code = 6309436055) 149 U/L 120-246 Lab Interpretation (test code = Normal 71738-7) [facility] CenterL[facility]ate [id number] 20:15:10 Test Item Value Reference Range Interpretation Comments LDH (test code = 0832651560) 149 U/L 120-246 Lab Interpretation (test code = Normal 91519-3) [facility] with [id number] 19:47:25 Test Item Value Reference Range Interpretation Comments WBC (test code = See_Comment [Automated 6690-2) message] The sy stem which generated this result transmitted reference range : 4.30 - 11.10 10*3/?L. The reference range was not used to interpret this result as normal/abnormal . RBC (test code = See_Comment [Automated 789-8) message] The sy stem which generated this result transmitted reference range : 3.93 - 5.25 10*6/?L. The reference range was not used to interpret this result as normal/abnormal . HGB (test code = 11.6 g/dL 11.6-15 718-7) HCT (test code = 34.2 % 35.7-45.2 L 4544-3) MCV (test code = 81.6 fL 80.6-95.5 787-2) MCH (test code = 27.7 pg 25.9-32.8 785-6) MCHC (test code = 33.9 g/dL 31.6-35.1 786-4) RDW-SD (test code = 39.9 fL 39-49.9 05404-9) RDW-CV (test code = 13.6 % 12-15.5 788-0) PLT (test code = See_Comment [Automated 777-3) message] The sy stem which generated this result transmitted reference range : 166 - 358 10*3/ ?L. The reference r edgar was not used to interpret this result as normal/abnormal . MPV (test code = 12.4 fL 9.5-12.9 42697-1) NRBC/100 WBC (test See_Comment [Automat ed code = 2550418235) message] The system which generated this result transmitted reference range : 0.0 - 10.0 /100 WBCs. The refer ence range was not u sed to interpret th is result as normal/abnormal . NRBC x10^3 (test code See_Comment [Auto mated = 5795875630) message] The s ystem which generated this result transmitted reference range : 10*3/?L. The reference range was not used to interpret this result as normal/abnormal . GRAN MAT (NEUT) % 72.1 % (test code = 770-8) IMM GRAN % (test code 0.50 % = 9484181133) LYMPH % (test code = 19.5 % 736-9) MONO % (test code = 7.3 % 5905-5) EOS % (test code = 0.3 % 713-8) BASO % (test code = 0.3 % 706-2) GRAN MAT x10^3(ANC) 4.24 10*3/uL 1.88-7.09 (test code = 1759006998) IMM GRAN x10^3 (test 0.03 10*3/uL 0-0.06 code = 4303060830) LYMPH x10^3 (test code 1.15 10*3/uL 1.32-3.29 L = 731-0) MONO x10^3 (test code 0.43 10*3/uL 0.33-0.92 = 742-7) EOS x10^3 (test code = 0.03-0.39 L 711-2) BASO x10^3 (test code 0.01-0.07 = 704-7) Lab Interpretation Abnormal (test code = 52816-0) [facility] with [id number] 19:47:25 Test Item Value Reference Range Interpretation Comments WBC (test code = See_Comment [Automated 8390-2) message] The sy stem which generated this result transmitted reference range : 4.30 - 11.10 10*3/?L. The reference range was not used to interpret this result as normal/abnormal . RBC (test code = See_Comment [Automated 206-8) message] The sy stem which generated this result transmitted reference range : 3.93 - 5.25 10*6/?L. The reference range was not used to interpret this result as normal/abnormal . HGB (test code = 11.6 g/dL 11.6-15 718-7) HCT (test code = 34.2 % 35.7-45.2 L 4544-3) MCV (test code = 81.6 fL 80.6-95.5 787-2) MCH (test code = 27.7 pg 25.9-32.8 785-6) MCHC (test code = 33.9 g/dL 31.6-35.1 786-4) RDW-SD (test code = 39.9 fL 39-49.9 27366-9) RDW-CV (test code = 13.6 % 12-15.5 788-0) PLT (test code = See_Comment [Automated 777-3) message] The sy stem which generated this result transmitted reference range : 166 - 358 10*3/ ?L. The reference r edgar was not used to interpret this result as normal/abnormal . MPV (test code = 12.4 fL 9.5-12.9 68195-8) NRBC/100 WBC (test See_Comment [Automat ed code = 4877695804) message] The system which generated this result transmitted reference range : 0.0 - 10.0 /100 WBCs. The refer ence range was not u sed to interpret th is result as normal/abnormal . NRBC x10^3 (test code See_Comment [Auto mated = 0487197644) message] The s ystem which generated this result transmitted reference range : 10*3/?L. The reference range was not used to interpret this result as normal/abnormal . GRAN MAT (NEUT) % 72.1 % (test code = 770-8) IMM GRAN % (test code 0.50 % = 5631024873) LYMPH % (test code = 19.5 % 736-9) MONO % (test code = 7.3 % 5905-5) EOS % (test code = 0.3 % 713-8) BASO % (test code = 0.3 % 706-2) GRAN MAT x10^3(ANC) 4.24 10*3/uL 1.88-7.09 (test code = 7464321960) IMM GRAN x10^3 (test 0.03 10*3/uL 0-0.06 code = 5447620366) LYMPH x10^3 (test code 1.15 10*3/uL 1.32-3.29 L = 731-0) MONO x10^3 (test code 0.43 10*3/uL 0.33-0.92 = 742-7) EOS x10^3 (test code = 0.03-0.39 L 711-2) BASO x10^3 (test code 0.01-0.07 = 704-7) Lab Interpretation Abnormal (test code = 48574-6) [facility] URINALYSIS W SPECIFIC [id number] 15:16:00 Test Item Value Reference Range Interpretation Comments POCT U SP GRAV (test code = 3255) . 1.005-1.025 POCT PH U (test code = 3254) . 5-8 POCT U LEUK EST (test code = 3263) . Negative - Negative POCT U NIT (test code = 3262) . Negative - Negative POCT U PROT (test code = 3259) Trace Negative - Negative POCT U GLU (test code = 3256) Neg Negative - Negative POCT U KETONE (test code = 3258) . Negative - Negative POCT U UROBILI (test code = 3260) . 0.2-1 POCT U BILI (test code = 3261) . Negative - Negative POCT U BLD (test code = 3257) . Negative - Negative POCT U COLOR (test code = 3266) . POCT U APPEAR (test code = 3267) . [facility] URINALYSIS W SPECIFIC [id number] 19:13:00 Test Item Value Reference Range Interpretation Comments POCT U SP GRAV (test code = * 1.005-1.025 3255) POCT PH U (test code = 3254) * 5-8 POCT U LEUK EST (test code = * Negative - Negative 3263) POCT U NIT (test code = 3262) * Negative - Negative POCT U PROT (test code = 3259) trace Negative - Negative POCT U GLU (test code = 3256) neg Negative - Negative POCT U KETONE (test code = 3258) * Negative - Negative POCT U UROBILI (test code = * 0.2-1 3260) POCT U BILI (test code = 3261) * Negative - Negative POCT U BLD (test code = 3257) * Negative - Negative POCT U COLOR (test code = 3266) * POCT U APPEAR (test code = 3267) * Lab Interpretation (test code = Abnormal 79788-6) [facility] URINALYSIS W SPECIFIC [id number] 19:08:00 Test Item Value Reference Range Interpretation Comments POCT U SP GRAV (test code = 3255) . 1.005-1.025 POCT PH U (test code = 3254) . 5-8 POCT U LEUK EST (test code = 3263) . Negative - Negative POCT U NIT (test code = 3262) . Negative - Negative POCT U PROT (test code = 3259) 1+ Negative - Negative POCT U GLU (test code = 3256) Neg Negative - Negative POCT U KETONE (test code = 3258) . Negative - Negative POCT U UROBILI (test code = 3260) . 0.2-1 POCT U BILI (test code = 3261) . Negative - Negative POCT U BLD (test code = 3257) . Negative - Negative POCT U COLOR (test code = 3266) POCT U APPEAR (test code = 3267) .. [facility]"
[2022-08-31] MEDS ORDERED: CEFTRIAXONE 1000 MG/VIAL ONE (03:22)
[2022-08-31] MEDS ORDERED: KETOROLAC 30 MG/ML INJ ONE (03:22)
[2022-08-31] MEDS ORDERED: ACETAMINOPHEN 500 MG TAB ONE (03:22)
[2022-08-31] MEDS ORDERED: predniSONE 20 MG TAB ONE (03:22)
[2022-08-31] MEDS ORDERED: PROMETHAZINE 25 MG TABLET ONE (03:22)
[2022-08-31] MEDS ORDERED: WATER FOR INJ,STERILE 10 ML ONE (03:23)
[2022-08-31 03:32] LABS: Specific Gravity 1.013 (1.005-1.030)
--- NOTE | 2022-08-31 04:10 | ER ---
Nurse's Notes [facility] Name: Chelita Rasmussen Age: 22 yrs Sex: Female : 2000 Arrival Date: 08/31/2022 Time: 02:31 Bed 19 Private MD: Diagnosis: Acute suppurative otitis media without spontaneous rupture of ear drum, left ear;Acute pharyngitis , acute laryngitis Presentation: 08/31 02:51 Chief complaint: Patient states: "I've been congested for 3 weeks and my throat is as6 really sore. my left ear also hurts. it feels like it's so full it's about to burst". Coronavirus screen: At this time, the client does not indicate any symptoms associated with coronavirus-19. Ebola Screen: No symptoms or risks identified at this time. Initial Sepsis Screen: Does the patient meet any 2 criteria? No. Patient's initial sepsis screen is negative. Does the patient have a suspected source of infection? No. Patient's initial sepsis screen is negative. Risk Assessment: Do you want to hurt yourself or someone else? Patient reports no desire to harm self or others. Onset of symptoms was August 15, 2022. 02:51 Method Of Arrival: Ambulatory as6 02:51 Acuity: RAGHAV 4 as6 Historical: - Allergies: 02:53 No Known Allergies; as6 - PMHx: 02:53 ADD/ADHD; as6 - PSHx: 02:53 section; as6 - Immunization history:: Client reports having NOT received the Covid vaccine. - Social history:: Smoking status: Patient denies any tobacco usage or history of. - Family history:: not pertinent. Screenin:24 [facility] ED Fall Risk Assessment (Adult) History of falling in the last 3 months, jb4 including since admission No falls in past 3 months (0 pts) Confusion or Disorientation No (0 pts) Score/Fall Risk Level 0 - 2 = Low Risk Oriented to surroundings, Maintained a safe environment. Abuse screen: Denies threats or abuse. Nutritional screening: No deficits noted. Tuberculosis screening: No symptoms or risk factors identified. Assessment: 03:00 General: Appears in no apparent distress. uncomfortable, Behavior is calm, cooperative, jb4 appropriate for age. Pain: Complains of pain in left ear Pain does not radiate. Pain currently is 10 out of 10 on a pain scale. Neuro: Level of Consciousness is awake, alert, obeys commands, Oriented to person, place, time, situation. Cardiovascular: Patient's skin is warm and dry. Respiratory: Airway is patent. GI: No signs and/or symptoms were reported involving the gastrointestinal system. : No signs and/or symptoms were reported regarding the genitourinary system. EENT: No signs and/or symptoms were reported regarding the EENT system. Derm: Skin is intact, Skin is pink, warm \\T\\ dry. Musculoskeletal: Circulation, motion, and sensation intact. Range of motion: intact in all extremities. 04:24 Reassessment: Patient appears in no apparent distress at this time. Patient and/or jb4 family updated on plan of care and expected duration. Pain level reassessed. Patient is alert, oriented x 3, equal unlabored respirations, skin warm/dry/pink. Vital Signs: 02:51 BP 133 / 89; Pulse 84; Resp 18 S; Temp 98.4(TE); Pulse Ox 99% on R/A; Weight 113.4 kg as6 (R); Height 5 ft. 7 in. (R); Pain 10/10; 02:51 Body Mass Index 39.16 (113.40 kg, 170.18 cm) as6 02:51 Pain Scale: Adult as6 ED Course: 02:35 Patient arrived in ED. ja2 02:52 Fletcher Fountain MD is Attending Physician. sp4 02:53 Triage completed. as6 02:54 Arm band placed on. as6 03:00 Juan Ramon Yang RN is Primary Nurse. jb4 03:26 Test, Urine Sent. jb4 04:24 Patient has correct armband on for positive identification. Bed in low position. Call jb4 light in reach. Side rails up X 1. 04:24 No provider procedures requiring assistance completed. Patient did not have IV access jb4 during this emergency room visit. Administered Medications: 03:41 Drug: predniSONE PO 60 mg Route: PO; jb4 03:41 Drug: Acetaminophen PO 1000 mg Route: PO; jb4 03:41 Drug: Promethazine PO 25 mg Route: PO; jb4 03:48 Drug: Rocephin (cefTRIAXone) IM 1 grams Route: IM; Site: right gluteus; jb4 03:48 Drug: Ketorolac IM 60 mg Route: IM; Site: right gluteus; jb4 Medication: 04:24 VIS not applicable for this client. jb4 Outcome: 04:10 Discharge ordered by . sp4 04:24 Discharged to home ambulatory. jb4 04:24 Condition: stable 04:24 Discharge instructions given to patient, Instructed on discharge instructions, follow up and referral plans. medication usage, Demonstrated understanding of instructions, follow-up care, medications, Prescriptions given X 2. 04:25 Patient left the ED. jb4 Signatures: Juan Ramon Yang RN RN jb4 Faviola Ventura Ashby, RN RN as6 Fletcher Fountain MD MD sp4
--- NOTE | 2022-08-31 04:10 | EDPHYS ---
Physician Documentation [facility] Name: Chelita Rasmussen Age: 22 yrs Sex: Female : 2000 Arrival Date: 08/31/2022 Time: 02:31 Bed 19 Private MD: ED Physician Fletcher Fountain HPI: 08/31 02:52 This 22 yrs old Female presents to ER via Unassigned with complaints of sp4 Congestion, Ear Pain. 03:01 22-year-old female presents with 3 weeks of congestion. This morning patient developed sp4 moderate to severe left earache, she also reported sore throat, hoarseness of the voice, nasal congestion, and feeling unwell. . Historical: - Allergies: 02:53 No Known Allergies; as6 - PMHx: 02:53 ADD/ADHD; as6 - PSHx: 02:53 section; as6 - Immunization history:: Client reports having NOT received the Covid vaccine. - Social history:: Smoking status: Patient denies any tobacco usage or history of. - Family history:: not pertinent. ROS: 03:01 Constitutional: Negative for fever, chills, and weight loss, positive for feeling sp4 unwell Eyes: Negative for injury, pain, redness, and discharge, ENT: Negative for injury, positive nasal congestion, sore throat, upper respiratory congestion, hoarseness, positive for left ear pain positive for lost voice Neck: Negative for injury, pain, and swelling, Cardiovascular: Negative for chest pain, palpitations, and edema, Respiratory: Negative for shortness of breath, cough, wheezing, and pleuritic chest pain, Abdomen/GI: Negative for abdominal pain, nausea, vomiting, diarrhea, and constipation, Back: Negative for injury and pain, : Negative for injury, bleeding, discharge, and swelling, MS/Extremity: Negative for injury and deformity, Skin: Negative for injury, rash, and discoloration, Neuro: Negative for headache, weakness, numbness, tingling, and seizure, Psych: Negative for depression, anxiety, Allergy/Immunology: Negative for hives, rash, and allergies Endocrine: Negative for neck swelling, polydipsia, polyuria, polyphagia, and weight changes Hematologic/Lymphatic: Negative for swollen nodes, abnormal bleeding, and unusual bruising Exam: 03:01 Constitutional: This is a well developed, well nourished patient who is awake, alert, sp4 and in no acute distress. Head/Face: Normocephalic, atraumatic. Eyes: Pupils equal round and reactive to light, extra-ocular motions intact. Lids and lashes normal. Conjunctiva and sclera are not injected. Cornea within normal limits. Periorbital areas with no swelling, redness, or edema. ENT: Nares patent. Positive nasal congestion, positive nasal discharge, positive bilateral pharyngeal redness erythema tonsillar enlargement. Positive tonsillar redness. Positive left tympanic membrane erythema, bulging, purulence, left ear canal irritation and redness. Exam consistent with acute left otitis media and bilateral tonsillitis. Neck: Trachea midline, no thyromegaly or masses palpated, and no cervical lymphadenopathy. Supple, full range of motion without nuchal rigidity, or vertebral point tenderness. Chest/axilla: Normal chest wall appearance and motion. Nontender with no deformity. No lesions are appreciated. Cardiovascular: Regular rate and rhythm with a normal S1 and S2. No gallops, murmurs, or rubs. Normal PMI, no JVD. No pulse deficits. Respiratory: Lungs have equal breath sounds bilaterally, clear to auscultation and percussion. No rales, rhonchi or wheezes noted. No increased work of breathing, no retractions or nasal flaring. Abdomen/GI: Soft, non-tender, with normal bowel sounds. No distension or tympany. No guarding or rebound. No evidence of tenderness throughout. Back: No spinal tenderness. No costovertebral tenderness. Skin: Warm, dry with normal turgor. Normal color with no rashes, no lesions, and no evidence of cellulitis. MS/ Extremity: Pulses equal, no cyanosis. Neurovascular intact. Full, normal range of motion. Neuro: Awake and alert, GCS 15, oriented to person, place, time, and situation. Cranial nerves II-XII grossly intact. Motor strength 5/5 in all extremities. Sensory grossly intact. Psych: Awake, alert, with orientation to person, place and time. Behavior, mood, and affect are within normal limits Vital Signs: 02:51 BP 133 / 89; Pulse 84; Resp 18 S; Temp 98.4(TE); Pulse Ox 99% on R/A; Weight 113.4 kg as6 (R); Height 5 ft. 7 in. (R); Pain 12/24; 02:51 Body Mass Index 39.16 (113.40 kg, 170.18 cm) as6 02:51 Pain Scale: Adult as6 MDM: 02:53 Patient medically screened. sp4 04:08 Differential diagnosis: otitis media, otitis externa, foreign body, acute otalgia, sp4 cerumen impaction. Data reviewed: vital signs, nurses notes, lab test result(s), UPT: negative. 04:08 ED course: Urine test is negative, patient will be prescribed Zithromax and sp4 ibuprofen will advise Tylenol [id number].. 08/31 02:53 Order name: Test, Urine; Complete Time: 04:08 sp4 08/31 03:19 Order name: Glucose, Ancillary Testing; Complete Time: 04:08 EDMS 08/31 03:00 Order name: Accucheck Blood Glucose; Complete Time: 03:25 sp4 Administered Medications: 03:41 Drug: predniSONE PO 60 mg Route: PO; jb4 03:41 Drug: Acetaminophen PO 1000 mg Route: PO; jb4 03:41 Drug: Promethazine PO 25 mg Route: PO; jb4 03:48 Drug: Rocephin (cefTRIAXone) IM 1 grams Route: IM; Site: right gluteus; jb4 03:48 Drug: Ketorolac IM 60 mg Route: IM; Site: right gluteus; jb4 Disposition Summary: 08/31/22 04:10 Discharge Ordered Location: Home sp4 Problem: new sp4 Symptoms: have improved sp4 Condition: Stable sp4 Diagnosis - Acute suppurative otitis media without spontaneous rupture of ear drum, left ear sp4 - Acute pharyngitis , acute laryngitis sp4 Followup: sp4 - With: Private Physician - When: 7 - 10 days - Reason: Recheck today's complaints Discharge Instructions: - Discharge Summary Sheet sp4 - Otitis Media, Adult, [id number] sp4 Prescriptions: - Ibuprofen 600 mg Oral Tablet - take 1 tablet by ORAL route every 6 hours As needed take with food; 30 tablet; sp4 Refills: 0, Product Selection Permitted - Zithromax Z-Jethro 250 mg Oral Tablet - take 1 tablet by ORAL route as directed for 5 days Day 1 - take two (2) tablets sp4 one time. Day 2, 3, 4 , 5 take one (1) tablet once daily.; 6 tablet; Refills: 0, Product Selection Permitted Signatures: Dispatcher [employer] Juan Ramon De La Paz RN RN jb4 Alexander Wilburn RN RN as6 Fletcher Fountain MD MD sp4
[2022-08-31 04:30] VITALS: BP 133/89; TEMP 98.4; O2SAT 99
== END 2022-08-31 04:25 | disposition home or self-care (01) ==
LOC: ER 02:31
DX: H66.002 Acute suppurative otitis media without spontaneous rupture of ear drum, left ear (principal); J04.0 Acute laryngitis; J02.9 Acute pharyngitis, unspecified
CPT/HCPCS: 81025; 82947; 96372; 99284; Q0169; J7512; J0696

== ENCOUNTER 2023-06-21 10:16 | Emergency (ER) | payer BC, OTHER, SELFPAY ==
--- OUTSIDE RECORDS SUMMARY | 2023-06-21 10:20 | XMS REPORT | Continuity of Care Document ---
Author Name Unknown Address [address] [facility] 1 [address] [place], [place] [address] [place] [address] thconnect Address [address] [address] [address] [place] [address] Care Team Providers Care Gate Mortiser Operator Name Role Phone ZARI BAER Primary Care Physician Unav ailable ELVIA BARRETT Attending Clinician UnavailZARI Gordon Attending Clinician Unavail able CARRIE GUY Attending Clinician Unavailab le Provider, Jannet Temp Attending Clinician Deisi vailaCarrie Garcia Attending Clinician + [phone] Visit, Jannet Nurse Attending Clinician Unava ilwong Baer WHZari ROSALES Attending Clinician + Adela Patrick MD, Christianson Attending Clinician + Juan Ramon Ingram MD Attending Clinician [phone] Irma Joy DO Attending Clinician [phone] Jaylan HOUSTON, Juan Alberto Montero Attending Clinician [phone] Lab, Jannet Attending Clinician Unavailable 5, [facility] Room Attending Clinician UnavailBelia Krishnamurthy MD Attending Clinician [phone] BELIA OROSCO Attending Clinician UnavailLaverne Davis Attending Clinician [phone] LAVERNE FERREIRA Attending Clinician Unavailable FABRIZIO BEEBE Attending Clinician Unavailable Fabrizio Beebe DO Attending Clinician [phone] [facility] [place] [facility] Attending Clinician Unavailable TAMIA CLOUD Attending Clinician Natalie rodgers 2, [facility] Room Attending Clinician Unavailab chas Ronald DO, Steven Attending Clinician [phone] ANNA FELICIANO Attending Clinician Unavailab Anna Chacon DO Attending Clinician [phone] Doctor Unassigned, [place] Attending Clinician U Jenniffer Mata Attending Clinician [phone] JENNIFFER RENTERIA Attending Clinician Unavailable Tamia Cloud MD Admitting Clinician + TAMIA CLOUD Admitting Clinician FABRIZIO Luna Admitting Clinician Unavailable ANNA FELICIANO Admitting Clinician Unavailab JENNIFFER Zhao Admitting Clinician Unavailable Payers Payer Name Policy Type Policy Number Effective Date Expirati on Date Source FORMERLY [facility] [id number] 2021 00:00:00 [facility] PPO/POS [id number] 2021 00:00:00 2021 00:00:00 Problems Condition Name Condition Details Condition Category Status Onset Date Resolution Date Last Treatment Date Treating Clinician Comments Source Hypertensi on in , pre-existi ng, antepartum Hypertensi on in , pre-existi ng, antepartum Disease Active 12-10 00:00: 00 [facility] 38 weeks gestation of 38 weeks gestation of Disease Active 12-10 00:00: 00 [facility] Positive GBS test Positive GBS test Disease Active 11-26 00:00: 00 Overview: Formattin g of this note might be different from the original. Address [facility] Elevated blood pressure reading without diagnosis of hypertensi on Elevated blood pressure reading without diagnosis of hypertensi on Disease Active 11-23 00:00: 00 [facility] Abnormal maternal glucose tolerance, antepartum Abnormal maternal glucose tolerance, antepartum Disease Active 6-24 00:00: 00 Overview: Formattin g of this note might be different from the original. Passed 3hr gtt [facility] Back pain in Back pain in Disease Active 6-23 00:00: 00 [facility] UTI in UTI in Disease Active 3-03 00:00: 00 Overview: Formattin g of this note might be different from the original. Reports dx at the ER, currently on meds, elda next visit-neg [facility] Chlamydia infection, current Chlamydia infection, current Disease Active 2-07 00:00: 00 Overview: Formattin g of this note might be different from the original. Neg elda [facility] Rubella non-immune status, antepartum Rubella non-immune status, antepartum Disease Active 2-04 00:00: 00 [facility] Susceptibl e to varicella (non-immun e), currently Susceptibl e to varicella (non-immun e), currently Disease Active 2-04 00:00: 00 Overview: Formattin g of this note might be different from the original. Address pp [facility] Supervisio n of high-risk Supervisio n of high-risk Disease Active 2-03 00:00: 00 [facility] Obesity in Obesity in Disease Active 10-14 00:00: 00 [facility] Acute tonsilliti s due to other specified organisms Acute tonsilliti s due to other specified organisms Disease Active 1- 00:00: 00 [facility] Sore throat Sore throat Disease Active 03-22 00:00: 00 [facility] Allergies, Adverse Reactions, Alerts Allergy Name Allergy Type Status Severity Reaction(s) Onset Date Inactive Date Treating Clinician Comments Source NO KNOWN ALLERGIE S Drug Class Active [facility] Social History Social Habit Start Date Stop Date Quantity Comments Source ASSERTION 2021-03-29 00:00:00 [facility] function 2022-03-14 00:00:00 2022-03-14 00:00:00 [facility] Exposure to SARS-CoV-2 (event) 2021-12-22 00:00:00 2022-01-01 13:04:00 Not sure [facility] Alcohol intake 2021-07-12 00:00:00 2021-07-12 00:00:00 Ex-drinker (finding) [facility] Tobacco use and exposure 2021-04-19 00:00:00 2021-04-19 00:00:00 Former smokeless tobacco user [facility] Tobacco Comment 2021-04-19 00:00:00 2021-04-19 00:00:00 quit when she found out she was [facility] History of tobacco use 2021-04-15 00:00:00 User of smokeless tobacco [facility] Sex Assigned At 2000 00:00:00 2000 00:00:00 [facility] Smoking Status Start Date Stop Date Source Never smoked tobacco [facility] Medications Ordered Medication Name Filled Medication Name Start Date Stop Date Current Medication? Ordering Clinician Indication Dosage Frequency Signature (SIG) Comments Components Source vit no.130-iron -folic ( VITAMIN) 12-13 00:00: 00 Yes [id number] 1{tbl} Take 1 tablet by mouth in the morning. [facility] docusate 100 mg capsule 12-13 00:00: 00 Yes [id number] 200mg Take 2 capsules by mouth once daily as needed for Constipati on. [facility] ferrous sulfate 325 mg (65 mg iron) tablet 12-13 00:00: 00 Yes [id number] 325mg Take 1 tablet by mouth in the morning and 1 tablet in the evening. [facility] ibuprofen 600 mg tablet 12-13 00:00: 00 Yes [id number] 600mg Take 1 tablet by mouth every 6 (six) hours as needed (Pain). Take with food or milk. [facility] HYDROcodone -acetaminop hen 5-325 mg tablet 12-13 00:00: 00 Yes [id number] 1{tbl} Take 1 tablet by mouth every 6 (six) hours as needed for Pain (scale 7-10) or Pain (scale 4-6) (Pain scale above 4). Do not exceed 3 grams of acetaminop hen in 24 hours. Indication s: acute pain [facility] varicella virus vaccine live (VARIVAX) injection and diluent vial 12-12 11:29: 58 Yes 1{each} 0.5 mL (1 Each), Subcutaneo us, ONCE-PRIOR TO DISCHARGE, 1 dose, Starting on Fri12/12/21 at 0629, Until Discontinu ed, Routine, Give vaccine prior to discharge [facility] ketorolac (TORADOL) injection 30 mg 12-11 23:43: 51 12-12 00:03 :00 No 30mg 30 mg, Slow IV Push, PRN, 1 dose, Starting on Fri12/11/21 at 1843, Until Fri12/11/21 at 1903, Routine, Pain (scale 7-10) [facility] lactated ringers IV infusion 1,000 mL 12-11 23:30: 00 12-12 01:50 :00 No 1000mL at 125 mL/hr, 1,000 mL, IV Infusion, ONCE, 1 dose, On Fri12/11/21 at 1830, Routine [facility] rho(D) immune globulin (RHOGAM) syringe 300 mcg 12-11 23:21: 54 Yes 300ug 300 mcg, Intramuscu lar, ONCE, For 1 dose, Conditiona l, Routine [facility] HYDROcodone -acetaminop hen (NORCO 5) 5-325 mg tablet 2 tablet 12-11 23:17: 46 Yes 2{tbl} 2 tablet, Oral, Q6HPRN, Starting on Fri12/11/21 at 1817, Until Discontinu ed, Routine, Pain (scale 7-10), Alternate with Ibuprofen [facility] HYDROcodone -acetaminop hen (NORCO 5) 5-325 mg tablet 1 tablet 12-11 23:17: 46 Yes 1{tbl} 1 tablet, Oral, Q6HPRN, Starting on Fri12/11/21 at 1816, Until Discontinu ed, Routine, Pain (scale 4-6), Alternate with Ibuprofen [facility] ibuprofen (IBU) tablet 600 mg 12-11 23:17: 46 Yes 600mg 600 mg, Oral, Q6HPRN, Starting on Fri12/11/21 at 1816, Until Discontinu ed, Routine, Pain (scale 1-3) [facility] diphenhydrA MINE (BENADRYL) injection 25 mg 12-11 23:17: 46 Yes 25mg 25 mg, Slow IV Push, Q6HPRN, Starting on Fri12/11/21 at 1816, Until Discontinu ed, Routine, Itching [facility] diphenhydrA MINE (BENADRYL) tablet 25 mg 12-11 23:17: 46 Yes 25mg 25 mg, Oral, Q6HPRN, Starting on Fri12/11/21 at 1816, Until Discontinu ed, Routine, Sleep, Itching [facility] ondansetron (ZOFRAN (PF)) injection 4 mg 12-11 23:17: 46 Yes 4mg 4 mg, Slow IV Push, Q8HPRN, Starting on Fri12/11/21 at 1816, Until Discontinu ed, Routine, Nausea and Vomiting (N/V) [facility] bisacodyL (DULCOLAX) suppository 10 mg 12-11 23:17: 46 Yes 10mg 10 mg, Rectal, QDAILYPRN, Starting on Fri12/11/21 at 1816, Until Discontinu ed, Routine, Constipati on [facility] simethicone (GAS RELIEF (SIMETHICON E)) chewable tablet 160 mg 12-11 23:17: 46 Yes 160mg 160 mg, Oral, PC+HSPRN, Starting on Fri12/11/21 at 1816, Until Discontinu ed, Routine, Gas [facility] docusate (COLACE) capsule 200 mg 12-11 23:17: 46 Yes 200mg 200 mg, Oral, QDAILYPRN, Starting on Fri12/11/21 at 1817, Until Discontinu ed, Routine, Constipati on [facility] magnesium hydroxide (MILK OF MAGNESIA) 400 mg/5 mL suspension 30 mL 12-11 23:17: 46 Yes 30mL 30 mL, Oral, QDAILYPRN, Starting on Fri12/11/21 at 1817, Until Discontinu ed, Routine, Constipati on [facility] lactated ringers IV infusion 1,000 mL 12-11 23:17: 46 Yes 1000mL at 125 mL/hr, 1,000 mL, IV Infusion, PRN, 1 dose, Starting on Fri12/11/21 at 1817, Until Discontinu ed, Routine [facility] ceFAZolin in 0.9% sodium chloride (ANCEF) 2 gram/100 mL RTU 2 g 12-11 21:05: 07 12-11 21:59 :00 No 2000mg 2 g (2,000 mg), IV Piggyback, O.R. HOLDING ONCE, 1 dose, Starting on Fri12/11/21 at 1605, Until Fri12/11/21 at 1659, Administer over 30 Minutes, 100 mL
Reas on for Anti-Infec tive: Surgical Prophylaxi s
Surgi halle Prophylaxi s: TACK PULLER MACHINE
Duration of therapy: within 24 hours of surgery [facility] sodium citrate-cit timo acid (BICITRA) 500-334 mg/5 mL solution 30 mL 12-11 15:10: 26 12-11 21:29 :00 No 30mL 30 mL, Oral, PRE-PROCED URE ONCE, 1 dose, Starting on Fri12/11/21 at 1010, Until Discontinu ed, Routine, Surgery/Pr ocedure [facility] ropivacaine 0.2 % (NAROPIN (PF)) epidural infusion 12-11 14:10: 00 12-11 21:25 :33 No Epidural, CONTINUOUS PRN, Starting on Fri12/11/21 at 0910, Until Fri12/11/21 at 1625, Routine, Intra-op [facility] lidocaine-e pinephrine (XYLOCAINE W/EPINEPHRI NE) 1.5 %-1:200,000 injection 12-11 14:08: 00 12-11 21:25 :33 No Intraderma l, ONCE INTRA PROCEDURE, Starting on Fri12/11/21 at 0908, Until Fri12/11/21 at 1625, Routine, Intra-op [facility] proMETHazin e (PHENERGAN) 25 mg in NS 50 mL IV piggyback (CNR) 12-11 08:00: 00 12-11 10:28 :00 No 25mg 25 mg, IV Piggyback, at 200 mL/hr Administer over 15 Minutes, ONCE NOW, 1 dose, On Fri12/11/21 at 0300, Routine [facility] oxytocin (PITOCIN) 30 units in NS 500 mL IV infusion 12-11 06:23: 43 12-11 23:21 :51 No 2mU/min at 2-40 mL/hr, IV Infusion, TITRATE, Starting on Fri12/11/21 at 0123, Until Fri12/11/21 at 1821, LUDWIG [facility] butorphanol (STADOL) injection 1 mg 12-11 04:45: 00 12-11 10:13 :00 No 1mg 1 mg, Intravenou s, ONCE, 1 dose, On Fri12/10/21 at 2345, Routine [facility] sodium citrate-cit timo acid (BICITRA) 500-334 mg/5 mL solution 30 mL 12-10 18:52: 31 12-11 13:19 :00 No 30mL 30 mL, Oral, PRE-PROCED URE ONCE, 1 dose, Starting on Fri12/10/21 at 1352, Until Discontinu ed, Routine, Surgery/Pr ocedure [facility] lactated ringers IV infusion 500 mL 12-10 18:52: 31 12-11 23:21 :51 No 500mL at 999 mL/hr, 500 mL, IV Infusion, PRN - SEE INSTRUCTIO NS, Starting on Fri12/10/21 at 1352, Until Fri12/11/21 at 1821, Routine [facility] D5W-LR IV infusion 1,000 mL 12-10 18:52: 31 12-11 23:21 :51 No 1000mL at 1-125 mL/hr, IV Infusion, TITRATE, Starting on Fri12/10/21 at 1352, Until Fri12/11/21 at 1821, Routine [facility] proMETHazin e 25 mg tablet - 00:00: 00 12-13 00:00 :00 No [id number] 25mg Take 1 tablet by mouth every 6 (six) hours as needed for Nausea and Vomiting (N/V). [facility] multivitami n ( VITAMIN) tablet 2-03 00:00: 00 12-13 00:00 :00 No [id number] 1{tbl} Take 1 tablet by mouth daily. [facility] multivitami n ( VITAMIN) tablet 2-03 00:00: 00 12-13 00:00 :00 No [id number] 1{tbl} Take 1 tablet by mouth daily. [facility] Vital Signs Vital Name Observation Time Observation Value Comments S ource Systolic blood pressure 2022-01-01 18:05:00 128 mm[Hg] [facility] Diastolic blood pressure 2022-01-01 18:05:00 88 mm[Hg] [facility] Heart rate 2022-01-01 18:05:00 86 /min [facility] Body temperature 2022-01-01 18:05:00 36.17 Marlin [facility] Respiratory rate 2022-01-01 18:05:00 18 /min [facility] Body height 2022-01-01 18:05:00 170.2 cm [facility] Body weight 2022-01-01 18:05:00 108.636 kg [facility] BMI 2022-01-01 18:05:00 37.51 kg/m2 [facility] Systolic blood pressure 2021-12-19 15:04:00 128 mm[Hg] [facility] Diastolic blood pressure 2021-12-19 15:04:00 84 mm[Hg] [facility] Heart rate 2021-12-19 15:04:00 82 /min [facility] Body temperature 2021-12-19 15:04:00 36.44 Marlin [facility] Respiratory rate 2021-12-19 15:04:00 18 /min [facility] Body weight 2021-12-19 15:04:00 106.822 kg [facility] BMI 2021-12-19 15:04:00 36.88 kg/m2 [facility] Systolic blood pressure 2021-12-14 16:51:00 142 mm[Hg] [facility] Diastolic blood pressure 2021-12-14 16:51:00 92 mm[Hg] [facility] Heart rate 2021-12-14 16:51:00 82 /min [facility] Body temperature 2021-12-14 16:51:00 36.28 Marlin [facility] Respiratory rate 2021-12-14 16:51:00 18 /min [facility] Oxygen saturation in Arterial blood by Pulse oximetry 2021-12-14 16:51:00 99 /min [facility] Systolic blood pressure 2021-12-11 23:15:00 135 mm[Hg] [facility] Diastolic blood pressure 2021-12-11 23:15:00 87 mm[Hg] [facility] Heart rate 2021-12-11 23:15:00 96 /min [facility] Respiratory rate 2021-12-11 23:15:00 23 /min [facility] Oxygen saturation in Arterial blood by Pulse oximetry 2021-12-11 23:15:00 99 /min [facility] Body temperature 2021-12-11 22:51:00 36.72 Marlin [facility] Systolic blood pressure 2021-12-10 15:23:00 140 mm[Hg] [facility] Diastolic blood pressure 2021-12-10 15:23:00 92 mm[Hg] [facility] Heart rate 2021-12-10 15:13:00 89 /min [facility] Body temperature 2021-12-10 15:12:00 36.56 Marlin [facility] Respiratory rate 2021-12-10 15:12:00 18 /min [facility] Body height 2021-12-10 15:12:00 170.2 cm [facility] Body weight 2021-12-10 15:12:00 118.927 kg [facility] BMI 2021-12-10 15:12:00 41.06 kg/m2 [facility] Systolic blood pressure 2021-12-07 19:11:00 132 mm[Hg] [facility] Diastolic blood pressure 2021-12-07 19:11:00 92 mm[Hg] [facility] Heart rate 2021-12-07 19:11:00 83 /min [facility] Body temperature 2021-12-07 19:11:00 36.83 Marlin [facility] Respiratory rate 2021-12-07 19:11:00 18 /min [facility] Body height 2021-12-07 19:11:00 170.2 cm [facility] Body weight 2021-12-07 19:11:00 120.657 kg [facility] BMI 2021-12-07 19:11:00 41.66 kg/m2 [facility] Oxygen saturation in Arterial blood by Pulse oximetry 2021-12-07 19:11:00 99 /min [facility] Systolic blood pressure 2021-11-30 19:07:00 134 mm[Hg] [facility] Diastolic blood pressure 2021-11-30 19:07:00 90 mm[Hg] [facility] Heart rate 2021-11-30 19:07:00 85 /min [facility] Body temperature 2021-11-30 19:07:00 36.5 Marlin [facility] Respiratory rate 2021-11-30 19:07:00 18 /min [facility] Body height 2021-11-30 19:07:00 170.2 cm [facility] Body weight 2021-11-30 19:07:00 118.077 kg [facility] BMI 2021-11-30 19:07:00 40.77 kg/m2 [facility] Procedures Procedure Date / Time Performed Performing Clinician Source CBC WITH DIFF 2021-12-12 09:54:00 Fina Ortiz [facility] CBC WITH DIFF 2021-12-12 09:54:00 Fina Ortiz [facility] SECTION 2021-12-11 21:37:00 Juan Ramon Ingram [facility] SECTION 2021-12-11 21:37:00 Juan Ramon Ingram [facility] CENTRAL NEURAXIAL BLOCK 2021-12-11 14:18:09 Donna Joy [facility] COVID-19 (ID NOW RAPID TESTING) 2021-12-10 19:30:00 Tamia Cloud [facility] LAB ONLY COVID INTERPRETATION 2021-12-10 19:30:00 Adela Patrick [facility] COVID-19 (ID NOW RAPID TESTING) 2021-12-10 19:30:00 Tamia Cloud [facility] LAB ONLY COVID INTERPRETATION 2021-12-10 19:30:00 Adela Patrick [facility] SGOT (ASPARTATE AMINO TRANSFER) 2021-12-10 19:28:00 Yeimy Gotti [facility] CREATININE 2021-12-10 19:28:00 Yeimy Gotti [facility] ALANINE AMINO TRANSFERASE(SGPT 2021-12-10 19:28:00 Yeimy Gotti [facility] LACTATE DEHYDROGENASE 2021-12-10 19:28:00 Inna Gotti [facility] URIC ACID 2021-12-10 19:28:00 Yeimy Gotti [facility] CBC WITH DIFF 2021-12-10 19:28:00 Yeimy Gotti [facility] URINALYSIS 2021-12-10 19:28:00 Yeimy Gotti [facility] HEPATITIS B SURFACE ANTIGEN 2021-12-10 19:28:00 Yeimy Gotti [facility] PROTEIN CREAT RATIO URINE RANDOM 2021-12-10 19:28:00 Yeimy Gotti [facility] GALV ONLY - SYPHILIS IGG/IGM 2021-12-10 19:28:00 Yeimy Gotti [facility] SGOT (ASPARTATE AMINO TRANSFER) 2021-12-10 19:28:00 Yeimy Gotti [facility] CREATININE 2021-12-10 19:28:00 Yeimy Gotti [facility] ALANINE AMINO TRANSFERASE(SGPT 2021-12-10 19:28:00 Yeimy Gotti [facility] LACTATE DEHYDROGENASE 2021-12-10 19:28:00 Inna Gotti [facility] URIC ACID 2021-12-10 19:28:00 Yeimy Gotti [facility] CBC WITH DIFF 2021-12-10 19:28:00 Yeimy Gotti [facility] URINALYSIS 2021-12-10 19:28:00 Yeimy Gotti [facility] HEPATITIS B SURFACE ANTIGEN 2021-12-10 19:28:00 Yeimy Gotti [facility] PROTEIN CREAT RATIO URINE RANDOM 2021-12-10 19:28:00 Yeimy Gotti [facility] GALV ONLY - SYPHILIS IGG/IGM 2021-12-10 19:28:00 Yeimy Gotti [facility] HB ABO GROUPING 2021-12-10 19:04:[address] [facility] RHO (D) IMMUNE GLOBULIN 2021-12-10 19:04:00 Inna Ortiz [facility] HB ABO GROUPING 2021-12-10 19:04:00 Yeimy Gotti [facility] RHO (D) IMMUNE GLOBULIN 2021-12-10 19:04:00 Inna Ortiz [facility] POCT URINALYSIS 2021-12-10 15:16:00 Zari Baer [facility] POCT URINALYSIS 2021-12-07 19:13:00 Zari Baer [facility] POCT URINALYSIS 2021-11-30 19:08:00 Zari Baer [facility] Encounters Start Date/Time End Date/Time Encounter Type Admission Type Attending [facility] Care Department Encounter ID Source 2022-11-01 11:37:51 2022-11-01 11:37:51 Outpatient JOE JOE [id number] Michael Tee 2022-04-09 09:15:00 2022-04-09 09:15:00 Outpatient R ELVIA BARRETT [facility] [id number] [facility] 2022-02-18 14:15:00 2022-02-18 14:15:00 Outpatient R ZARI BAER [facility] [id number] [facility] 2022-01-22 09:45:00 2022-01-22 09:45:00 Outpatient R CARRIE GUY [facility] [id number] [facility] 2022-01-01 12:45:00 2022-01-01 13:37:39 Outpatient CARRIE MUNOZ [facility] [id number] [facility] 2022-01-01 12:45:00 2022-01-01 13:37:39 Routine Visit Provider, Carrie Hansen [facility] TACK PULLER MACHINE [facility] CHILD [facility] .84.114 [id number] [facility] 2021-12-19 10:00:00 2021-12-19 10:12:38 Nurse Visit Visit, Jannet Nurse Zari Baer [facility] TACK PULLER MACHINE [facility] .840.114 [id number] [facility] 2021-12-19 10:00:00 2021-12-19 10:00:00 Outpatient R ZARI BAER [facility] [id number] [facility] 2021-12-10 13:29:00 2021-12-14 16:35:00 Hospital Encounter Adela Annecathy Tamia pruett [facility] [id number] [facility] 2021-12-11 16:24:00 2021-12-11 18:15:00 Surgery Juan Ramon Ingram [facility] [id number] [facility] 2021-12-11 08:20:00 2021-12-11 16:45:00 Anesthesia Event Irma Joy, Juan Alberto M [facility] [id number] [facility] 2021-12-10 10:00:00 2021-12-10 10:29:37 Outpatient R ZARI BAER [facility] [id number] [facility] 2021-12-10 10:00:00 2021-12-10 10:29:37 Routine Visit Zari Baer [facility] TACK PULLER MACHINE [facility] [id number] [facility] 2021-12-10 10:00:00 2021-12-10 10:29:37 Outpatient ZARI HASSAN TNDEUCE ELIN [id number] [facility] 2021-12-07 14:00:00 2021-12-07 14:23:44 Outpatient R ZARI BAER [facility] [id number] [facility] 2021-12-07 14:00:00 2021-12-07 14:23:44 Routine Visit Zari Baer Tomasz [facility] TACK PULLER MACHINE [facility] 1..840.114 [id number] [facility] 2021-11-30 14:00:00 2021-11-30 14:23:51 Outpatient R ZARI BAER [facility] [id number] [facility] 2021-11-30 14:00:00 2021-11-30 14:23:51 Outpatient R ZARI BAER [facility] [id number] [facility] 2021-11-30 14:00:00 2021-11-30 14:23:51 Routine Visit Zari Baer [facility] T[employer] PULLER MACHINE [facility] CHILD [facility] 1.840.114 350.1.13.10 4.2.7.2.686 [id number] 107 [id number] [facility] 2021-11-26 00:00:00 2021-11-26 00:00:00 Telephone Zari Baer [facility] TACK PULL[employer] MACHINE [facility] & CHILD [facility] 1..840.114 350.1.13.10 4.2.7.2.686 [id number] 107 [id number] [facility] 2021-11-23 14:45:00 2021-11-23 15:30:26 Outpatient R ZARI BAER [facility] [id number] [facility] 2021-11-23 14:45:00 2021-11-23 15:30:26 Routine Visit Zari Baer [facility] TACK PULLER MACHINE [facility] CHILD [facility] 1..840.114 350.1.13.10 4.2.7.2.686 [id number] 107 [id number] [facility] 2021-11-23 14:45:00 2021-11-23 15:30:26 Outpatient R ZARI BAER [facility] [id number] [facility] 2021-11-09 16:00:00 2021-11-09 16:19:35 Outpatient R ZARI BAER [facility] [id number] [facility] 2021-11-09 16:00:00 2021-11-09 16:19:35 Routine Visit Zari Baer [facility] TACK PULLER MACHINE [facility] & CHILD [facility] 1..840.114 350.1.13.10 4.2.7.2.686 [id number] 107 [id number] [facility] 2021-10-26 16:00:00 2021-10-26 16:21:05 Outpatient R ZARI BAER [facility] [id number] [facility] 2021-10-26 16:00:00 2021-10-26 16:21:05 Routine Visit Zari Baer [facility] TACK PULLER MACHINE [facility] CHILD [facility] 1..840.114 350.1.13.10 4.2.7.2.686 [id number] 107 [id number] [facility] 2021-10-25 16:00:00 2021-10-25 16:00:00 Outpatient R ZARI BAER [facility] [id number] [facility] 2021-10-11 14:15:00 2021-10-11 15:24:50 Routine Visit Zari Baer [facility] TACK PULLER MACHINE [facility] CHILD [facility] ..840.114 350.1.13.10 4.2.7.2.686 [id number] 107 [id number] [facility] 2021-10-11 14:15:00 2021-10-11 15:24:50 Outpatient R ZARI BAER [facility] [id number] [facility] 2021-10-11 14:15:00 2021-10-11 14:15:00 Outpatient R ZACARIASTRAVISHAYLEYZARI [facility] [id number] [facility] 2021-09-28 00:00:00 2021-09-28 00:00:00 Telephone Zari Baer [facility] T[employer] PULLER MACHINE [facility]ILD [facility] ..840.114 350.1.13.10 4.2.7.2.686 [id number] 107 [id number] [facility] 2021-09-27 15:45:00 2021-09-27 16:42:10 Outpatient R MARTA ZARI [facility] [id number] [facility] 2021-09-27 15:45:00 2021-09-27 16:42:10 Routine Visit Zari Baer [facility] T[employer] PULLER MACHINE [facility] CHILD [facility] ..840.114 350.1.13.10 4.2.7.2.686 [id number] 107 [id number] [facility] 2021-09-27 15:45:00 2021-09-27 15:45:00 Outpatient R ZARI BAER [facility] [id number] [facility] 2021-09-11 07:45:00 2021-09-11 08:01:09 Outpatient R ZARI BAER [facility] [id number] [facility] 2021-09-11 07:45:00 2021-09-11 08:01:09 Automation Analyst Visit Lab, Ang-Rmchp Zari Baer [facility] TACK PULLER MACHINE [facility] CHILD [facility] ..840.114 350.1.13.10 4.2.7.2.686 [id number] 107 [id number] [facility] 2021-09-07 00:00:00 2021-09-07 00:00:00 Telephone Zari Baer [facility] TACK PULLER MACHINE [facility] CHILD [facility] 1.2840.114 350.1.13.10 4.2.7.2.686 [id number] [facility] 2021-09-06 14:00:00 2021-09-06 14:52:09 Outpatient R ZARI BAER [facility] [id number] [facility] 2021-09-06 14:00:00 2021-09-06 14:52:09 Routine Visit Zari Baer [facility] TACK PULLER MACHINE [facility] CHILD [facility] 1.840.114 350.1.13.10 4.2.7.2.686 [id number] 107 [id number] [facility] 2021-09-06 14:00:00 2021-09-06 14:52:09 Outpatient R ZARI BAER [facility] [id number] [facility] 2021-09-06 00:00:00 2021-09-06 00:00:00 Letter (Out) Zari Baer [facility] TACK PULLER MACHINE [facility] & CHILD [facility] 1.840.114 350.1.13.10 4.2.7.2.686 [id number] 107 [id number] [facility] 2021-09-05 00:00:00 2021-09-05 00:00:00 Abstract Zari Baer [facility] TACK PULLER MACHINE [facility] CHILD [facility] 1.840.114 350.1.13.10 4.2.7.2.686 [id number] 107 [id number] [facility] 2021-08-30 09:15:00 2021-08-30 10:00:00 Automation Analyst Visit 5, [facility]o [facility] 1..114 350.1.13.10 4.2.7.2.686 [id number] [facility] 2021-08-30 09:15:00 2021-08-30 09:15:00 Outpatient P BELIA OROSCO [facility] [id number] [facility] 2021-08-23 18:20:00 2021-08-23 18:40:00 Urgent Care Laverne Ferreira [facility] 1..840.114 350.1.13.10 4.2.7.2.686 [id number] [facility] 2021-08-23 18:20:00 2021-08-23 18:20:00 Outpatient R LAVERNE FERREIRA [facility] [id number] [facility] 2021-08-09 14:45:00 2021-08-09 15:11:15 Outpatient R ZARI BAER [facility] [id number] [facility] 2021-08-09 14:45:00 2021-08-09 15:11:15 Routine Visit Zari Baer [facility] TACK PULLER MACHINE [facility] 1.840.114 350.1.13.10 4.2.7.2.686 [id number] 107 [id number] [facility] 2021-08-02 00:00:00 2021-08-02 00:00:00 Abstract Zari Baer [facility] TACK PULLER MACHINE [facility] CHILD [facility] 1..840.114 350.1.13.10 4.2.7.2.686 [id number] 107 [id number] [facility] 2021-07-30 08:00:00 2021-07-30 09:42:31 Automation Analyst Visit 5, [facility] Us Belia Cloud [facility] 1..114 350.1.13.10 4.2.7.2.686 [id number] [facility] 2021-07-30 08:00:00 2021-07-30 09:42:31 Outpatient P BELIA OROSCO [facility] [id number] [facility] 2021-07-30 08:00:00 2021-07-30 08:00:00 Outpatient BELIA MO [facility] [id number] [facility] 2021-07-18 00:00:00 2021-07-18 00:00:00 Telephone Zari Baer [facility] TACK PULLER MACHINE [facility]ILD [facility] 1.2.840.114 350.1.13.10 4.2.7.2.686 [id number] 107 [id number] [facility] 2021-07-17 00:00:00 2021-07-17 00:00:00 Patient Secure Msg Zari Baer [facility] TACK PULLER MACHINE [facility] 1.2.840.114 350.1.13.10 4.2.7.2.686 [id number] 107 [id number] [facility] 2021-07-12 14:45:00 2021-07-12 15:59:54 Outpatient R ZARI BAER [facility] [id number] [facility] 2021-07-12 14:45:00 2021-07-12 15:00:00 Routine Visit Zari Baer [facility] TACK PULLER MACHINE [facility]ILD [facility] 1..840.114 350.1.13.10 4.2.7.2.686 [id number] 107 [id number] [facility] 2021-07-12 14:45:00 2021-07-12 14:45:00 Outpatient R ZARI BAER [facility] [id number] [facility] 2021-07-12 14:45:00 2021-07-12 14:45:00 Outpatient R ZARI BAER [facility] [id number] [facility] 2021-07-12 00:00:00 2021-07-12 00:00:00 Letter (Out) Zari Baer [facility] TACK PULLER MACHINE [facility] 1.840.114 350.1.13.10 4.2.7.2.686 [id number] 107 [id number] [facility] 2021-07-05 06:29:00 2021-07-05 09:27:00 Emergency X FABRIZIO BEEBE ERT [id number] [facility] 2021-07-05 06:29:00 2021-07-05 09:27:00 Emergency Fabrizio Beebe [facility] 1.840.114 350.1.13.10 4.2.7.2.686 [id number] [facility] 2021-07-05 06:29:00 2021-07-05 09:27:00 Emergency X FABRIZIO BEEBE TNDEUCE ERT [id number] [facility] 2021-07-04 00:00:00 2021-07-04 00:00:00 Telephone Zari Baer [facility] TACK PULLER MACHINE [facility] CHILD [facility] 1.0.114 350.1.13.10 4.2.7.2.686 [id number] 107 [id number] [facility] 2021-06-14 15:30:00 2021-06-14 15:57:10 Outpatient R ZARI BAER [facility] [id number] [facility] 2021-06-14 15:30:00 2021-06-14 15:57:10 Routine Visit Zari Baer [facility] TACK PULLER MACHINE [facility]ILD [facility] 1.0.114 350.1.13.10 4.2.7.2.686 [id number] 107 [id number] [facility] 2021-06-14 00:00:00 2021-06-14 00:00:00 Letter (Out) Zari Baer [facility] TACK PULLER MACHINE [facility] 1.840.114 350.1.13.10 4.2.7.2.686 [id number] 107 [id number] [facility] 2021-06-14 00:00:00 2021-06-14 00:00:00 Abstract Zari Baer [facility] TACK PULLER MACHINE [facility] CHILD [facility] 1..840.114 350.1.13.10 4.2.7.2.686 [id number] 107 [id number] [facility] 2021-06-13 14:00:00 2021-06-13 14:10:30 Automation Analyst Visit Lab, [place] [facility] Tamia Valentin [facility] TACK PULLER MACHINE [facility] & CHILD [facility] ..840.114 350.1.13.10 4.2.7.2.686 [id number] [facility] 2021-06-13 14:00:00 2021-06-13 14:10:30 Outpatient P TAMIA VALENTIN [facility] [id number] [facility] 2021-06-13 14:00:00 2021-06-13 14:00:00 Outpatient P TAMIA VALENTIN [facility] [id number] [facility] 2021-06-13 13:00:00 2021-06-13 13:58:46 Automation Analyst Visit 2, [facility] Room Tamia Valentin [facility] .840.114 350.1.13.10 4.2.7.2.686 [id number] [facility] 2021-06-13 00:00:00 2021-06-13 00:00:00 Abstract Zari Baer [facility] TACK PULLER MACHINE [facility] 1..840.114 350.1.13.10 4.2.7.2.686 [id number] 107 [id number] [facility] 2021-06-06 14:00:00 2021-06-06 14:00:00 Outpatient [facility] [id number] [facility] 2021-06-06 14:00:00 2021-06-06 14:00:00 Outpatient P [facility] [id number] [facility] 2021-06-06 13:00:00 2021-06-06 13:45:00 Automation Analyst Visit 2, [facility] Room Steven Cardenas [facility] TACK PULLER MACHINE [facility] CHILD [facility] 1..840.114 350.1.13.10 4.2.7.2.686 [id number] [facility] 2021-06-06 13:00:00 2021-06-06 13:00:00 Outpatient P STEVEN CARDENAS [facility] [id number] [facility] 2021-06-06 00:00:00 2021-06-06 00:00:00 Abstract Zari Baer TN[facility] TACK PULLER MACHINE [facility]ILD [facility] 1..840.114 350.1.13.10 4.2.7.2.686 [id number] 107 [id number] [facility] 2021-05-17 13:00:00 2021-05-17 13:31:06 Outpatient R ZARI BAER [facility] [id number] [facility] 2021-05-17 13:00:00 2021-05-17 13:31:06 Routine Visit Zari Baer TN[facility] TACK PULLER MACHINE [facility] ..840.114 350.1.13.10 4.2.7.2.686 [id number] 107 [id number] [facility] 2021-05-17 13:00:00 2021-05-17 13:31:06 Outpatient R ZARI BAER [facility] [id number] [facility] 2021-05-17 13:00:00 2021-05-17 13:00:00 Outpatient R ZARI BAER [facility] [id number] [facility] 2021-05-17 00:00:00 2021-05-17 00:00:00 Letter (Out) Zari Baer [facility] TACK PULLER MACHINE [facility] 1.0.114 350.1.13.10 4.2.7.2.686 [id number] 107 [id number] [facility] 2021-05-08 00:00:00 2021-05-08 00:00:00 Telephone Zari Baer [facility] TACK PULLER MACHINE [facility] CHILD [facility] 1..114 350.1.13.10 4.2.7.2.686 [id number] 107 [id number] [facility] 2021-05-01 07:03:00 2021-05-01 08:57:00 Emergency X ANNA FELICIANO [facility] ERT [id number] [facility] 2021-05-01 07:03:00 2021-05-01 08:57:00 Emergency Anna Feliciano [facility] 1..114 350.1.13.10 4.2.7.2.686 [id number] [facility] 2021-05-01 07:03:00 2021-05-01 08:57:00 Emergency X ANNA FELICIANO [facility] ERT [id number] [facility] 2021-05-01 00:00:00 2021-05-01 00:00:00 Orders Only Doctor Unassigned, [place] [facility] 1..114 350.1.13.10 4.2.7.2.686 [id number] [facility] 2021-04-23 00:00:00 2021-04-23 00:00:00 Telephone Zari Baer [facility] TACK PULLER MACHINE [facility] CHILD [facility] 1.0.114 350.1.13.10 4.2.7.2.686 [id number] 107 [id number] [facility] 2021-04-19 08:00:00 2021-04-19 10:24:08 Outpatient R ZARI BAER [facility] [id number] [facility] 2021-04-19 08:30:00 2021-04-19 10:16:33 Outpatient R ZARI BAER [facility] [id number] [facility] 2021-04-19 08:30:00 2021-04-19 10:16:33 Outpatient R ZARI BAER [facility] [id number] [facility] 2021-04-19 08:30:00 2021-04-19 10:16:33 Initial Visit Zari Baer [facility] TACK PULLER MACHINE [facility] 1.840.114 350.1.13.10 4.2.7.2.686 [id number] [facility] 2021-04-19 08:30:00 2021-04-19 10:16:33 Outpatient R ZARI BAER [facility] [id number] [facility] 2021-04-19 00:00:00 2021-04-19 00:00:00 Orders Only Doctor Unassigned, [place] [facility] 1.840.114 350.1.13.10 4.2.7.2.686 [id number] [facility] 2019-06-04 15:23:11 2019-06-04 18:34:00 Emergency Jenniffer Renteria R [facility] 1.840.114 350.1.13.10 4.2.7.2.686 [id number] [facility] 2019-06-04 15:23:11 2019-06-04 18:34:00 Emergency X JENNIFFER RENTERIA [facility] ERT [id number] [facility] 2019-06-04 15:23:11 2019-06-04 18:34:00 Emergency Jenniffer Renteria [facility] 1.2.840.114 350.1.13.10 4.2.7.2.686 [id number] Results Test Description Test Time Test Comments Results Result Co mments Source [facility] IMMUNE [id number] 00:17:34* Test Item Value Reference Range Interpretation Comme nts RHIG CANDIDATE? (test code = 5055) No- see comment Patient is not a candidate for RhIg- Patient is Rh Positive.Performed at [facility] Laboratory Services - [facility] Blood [address] [address] Free: [phone] No. [id number] [facility] ONLY - SYPHILIS IGG/[id number] 16:21:06* Test Item Value Reference Range Interpretation Comme nts Syphilis IgG/IgM (test code = 79927-7) Non-reactive Non-reactive BRENDA (test code = BRENDA) Non-reactive - No serologic evidence of T. pallidum infection. Cannot exclude incubating or early syphilis. Submit a second specimen in 2-4 weeks if syphilis is clinically suspected. Equivocal - Further testing to follow. Reactive - Further testing to follow. Lab Interpretation (test code = 89714-7) Normal [facility] ONLY - SYPHILIS IGG/[id number] 16:21:06* Test Item Value Reference Range Interpretation Comme [facility] Syphilis IgG/IgM (test code = 21656-2) Non-reactive Non-reactive BRENDA (test code = BRENDA) Non-reactive - No serologic evidence of T. pallidum infection. Cannot exclude incubating or early syphilis. Submit a second specimen in 2-4 weeks if syphilis is clinically suspected. Equivocal - Further testing to follow. Reactive - Further testing to follow. Lab Interpretation (test code = 40943-1) Normal [facility] Screen - ONCE [id number] 20:51:46 * Test Item Value Reference Range Interpretation Comme nts ABO & RH (test code = 20) O POSITIVE Performed at [facility] B Laboratory Services - [facility] Blood [address] [address] Free: [phone] No. [id number] IAT (test code = 1185) Negative Performed at [facility] Laboratory Services - [facility] Blood [address] Free: [phone] No. [id number] [facility] - ONCE [id number] 20:51:46 * Test Item Value Reference Range Interpretation Comme nts ABO & RH (test code = 20) O POSITIVE Performed at [facility] Laboratory [facility] Blood [address] Free: [phone] No. [id number] IAT (test code = 1185) Negative Performed at [facility] Laboratory [address] Free: [phone] No. [id number] [facility] Surface [id number] 20:47:17 * Test Item Value Reference Range Interpretation Comme nts HBsAg Semi-Quantitative (dagoberto t code = 5195-3) Negative Negative [facility] B Surface [id number] 20:47:17 * Test Item Value Reference Range Interpretation Comme nts HBsAg Semi-Quantitative (dagoberto t code = 5195-3) Negative Negative [facility] HospitalU[facility] Werux0582-97-63 20:16:32* Test Item Value Reference Range Interpretation Comme [facility] URIC ACID (test code = 5353461287) 4.8 mg/dL 2.9-6 Lab Interpretation (test cod e = 34426-4) Normal [facility] Dsgwuxvfsj2630-80-30 20:16:32* Test Item Value Reference Range Interpretation Comme nts CREATININE (test code = 9086250510) 0.63 mg/dL 0.5-1.04 eGFR (test code = 4698905190) mL/min/1.73m2 BRENDA (test code = BRENDA) Association of [...] or urine or abnormalities in imaging tests). [facility] (Asparate Amino Transfer)2021-12-10 20:16:32* Test Item Value Reference Range Interpretation Comme [facility] AST(SGOT) (test code = 5630676297) 17 U/L 13-40 Lab Interpretation (test cod e = 71480-9) Normal [facility] HospitalAlanine Amino Transferase (SGPT)2021-12-10 20:16:32* Test Item Value Reference Range Interpretation Comme [facility] ALTv (test code = 1742-6) 9 U/L 5-35 Lab Interpretation (test cod e = 79791-2) Normal [facility] Hospital[facility] Aeynv0562-07-34 20:16:32* Test Item Value Reference Range Interpretation Comme [facility] URIC ACID (test code = 4706182248) 4.8 mg/dL 2.9-6 Lab Interpretation (test cod e = 43420-2) Normal [facility] Ylzsdupskc4183-88-55 20:16:32* Test Item Value Reference Range Interpretation Comme [facility] CREATININE (test code = 1987354430) 0.63 mg/dL 0.5-1.04 eGFR (test code = 9145259422) mL/min/1.73m2 BRENDA (test code = BRENDA) Association of [...] or urine or abnormalities in imaging tests). [facility] (Asparate Amino Transfer)2021-12-10 20:16:32* Test Item Value Reference Range Interpretation Comme nts AST(SGOT) (test code = 3099438256) 17 U/L 13-40 Lab Interpretation (test cod e = 36109-9) Normal [facility] Hospital[facility] Amino Transferase (SGPT)2021-12-10 20:16:32* Test Item Value Reference Range Interpretation Comme nts ALTv (test code = 1742-6) 9 U/L 5-35 Lab Interpretation (test cod e = 05459-9) Normal [facility] HospitalLactate Kmahlmnvpizih5773-07-31 20:15:10* Test Item Value Reference Range Interpretation Comme nts LDH (test code = 3381311050) 149 U/L 120-246 Lab Interpretation (test cod e = 99548-2) Normal [facility] Hospital[facility] Oqgqhrrtjnszb0198-90-23 20:15:10* Test Item Value Reference Range Interpretation Comme nts LDH (test code = 5598384646) 149 U/L 120-246 Lab Interpretation (test cod e = 83742-5) Normal [facility] HospitalCBC with Qokbgxqtlpkf3888-36-39 19:47:25* Test Item Value Reference Range Interpretation Comme nts WBC (test code = 6690-2) See_Comment [Automated messa ge] The system which generated this result transmitted reference range: 4.30 - 11.10 10*3/?L. The reference range was not used to interpret this result as normal/abnormal. RBC (test code = 789-8) See_Comment [Automated messa ge] The system which generated this result transmitted reference range: 3.93 - 5.25 10*6/?L. The reference range was not used to interpret this result as normal/abnormal. HGB (test code = 718-7) 11.6 g/dL 11.6-15 HCT (test code = 4544-3) 34.2 % 35.7-45.2 L MCV (test code = 787-2) 81.6 fL 80.6-95.5 MCH (test code = 785-6) 27.7 pg 25.9-32.8 MCHC (test code = 786-4) 33.9 g/dL 31.6-35.1 RDW-SD (test code = 89078-6) 39.9 fL 39-49.9 RDW-CV (test code = 788-0) 13.6 % 12-15.5 PLT (test code = 777-3) See_Comment [Automated messa ge] The system which generated this result transmitted reference range: 166 - 358 10*3/?L. The reference range was not used to interpret this result as normal/abnormal. MPV (test code = 72549-2) 12.4 fL 9.5-12.9 NRBC/100 WBC (test code = 9240864611) See_Comment [Automated [employer] ssage] The system which generated this result transmitted reference range: 0.0 - 10.0 /100 WBCs. The reference range was not used to interpret this result as normal/abnormal. NRBC x10^3 (test code = 1186375046) See_Comment [Automated messa ge] The system which generated this result transmitted reference range: 10*3/?L. The reference range was not used to interpret this result as normal/abnormal. GRAN MAT (NEUT) % (test code = 770-8) 72.1 % IMM GRAN % (test code = 9733567233) 0.50 % LYMPH % (test code = 736-9) 19.5 % MONO % (test code = 5905-5) 7.3 % EOS % (test code = 713-8) 0.3 % BASO % (test code = 706-2) 0.3 % GRAN MAT x10^3(ANC) (test code = [id number]) 4.24 10*3/uL 1.88-7.09 IMM GRAN x10^3 (test code = 3097898155) 0.03 10*3/uL 0-0.06 LYMPH x10^3 (test code = 731-0) 1.15 10*3/uL 1.32-3.29 L MONO x10^3 (test code = 742-7) 0.43 10*3/uL 0.33-0.92 EOS x10^3 (test code = 711-2) 0.03-0.39 L BASO x10^3 (test code = 704-7) 0.01-0.07 Lab Interpretation (test code = 19055-9) Abnormal [facility] with [id number] 19:47:25* Test Item Value Reference Range Interpretation Comme nts WBC (test code = 6690-2) See_Comment [Automated [employer]ach[employer] ge] The system which generated this result transmitted reference range: 4.30 - 11.10 10*3/?L. The reference range was not used to interpret this result as normal/abnormal. RBC (test code = 789-8) See_Comment [Automated messa ge] The system which generated this result transmitted reference range: 3.93 - 5.25 10*6/?L. The reference range was not used to interpret this result as normal/abnormal. HGB (test code = 718-7) 11.6 g/dL 11.6-15 HCT (test code = 4544-3) 34.2 % 35.7-45.2 L MCV (test code = 787-2) 81.6 fL 80.6-95.5 MCH (test code = 785-6) 27.7 pg 25.9-32.8 MCHC (test code = 786-4) 33.9 g/dL 31.6-35.1 RDW-SD (test code = 91350-9) 39.9 fL 39-49.9 RDW-CV (test code = 788-0) 13.6 % 12-15.5 PLT (test code = 777-3) See_Comment [Automated messa ge] The system which generated this result transmitted reference range: 166 - 358 10*3/?L. The reference range was not used to interpret this result as normal/abnormal. MPV (test code = 74197-0) 12.4 fL 9.5-12.9 NRBC/100 WBC (test code = 8078656757) See_Comment [Automated [employer] ssage] The system which generated this result transmitted reference range: 0.0 - 10.0 /100 WBCs. The reference range was not used to interpret this result as normal/abnormal. NRBC x10^3 (test code = 6874769285) See_Comment [Automated [employer]] The system which generated this result transmitted reference range: 10*3/?L. The reference range was not used to interpret this result as normal/abnormal. GRAN MAT (NEUT) % (test code = 770-8) 72.1 % IMM GRAN % (test code = 0053902029) 0.50 % LYMPH % (test code = 736-9) 19.5 % MONO % (test code = 5905-5) 7.3 % EOS % (test code = 713-8) 0.3 % BASO % (test code = 706-2) 0.3 % GRAN MAT x10^3(ANC) (test code = 1831747800) 4.24 10*3/uL 1.88-7.09 IMM GRAN x10^3 (test code = 7292117765) 0.03 10*3/uL 0-0.06 LYMPH x10^3 (test code = 731-0) 1.15 10*3/uL 1.32-3.29 L MONO x10^3 (test code = 742-7) 0.43 10*3/uL 0.33-0.92 EOS x10^3 (test code = 711-2) 0.03-0.39 L BASO x10^3 (test code = 704-7) 0.01-0.07 Lab Interpretation (test code = 89030-7) Abnormal [facility] URINALYSIS W SPECIFIC [id number] 15:16:00* Test Item Value Reference Range Interpretation Comme nts POCT U SP GRAV (test code = 3255) . 1.005-1.025 POCT PH U (test code = 3254) . 5-8 POCT U LEUK EST (test code = 3263) . Negative - N egative POCT U NIT (test code = 3262) . Negative - Negati ve POCT U PROT (test code = 3259) Trace Negative - Negat catarina POCT U GLU (test code = 3256) Neg Negative - Negati ve POCT U KETONE (test code = 3258) . Negative - Neg ative POCT U UROBILI (test code = 3260) . 0.2-1 POCT U BILI (test code = 3261) . Negative - Negat catarina POCT U BLD (test code = 3257) . Negative - Negati ve POCT U COLOR (test code = 3266) . POCT U APPEAR (test code = 3267) . [facility] URINALYSIS W SPECIFIC [id number] 19:13:00* Test Item Value Reference Range Interpretation Comme nts POCT U SP GRAV (test code = 3255) * 1.005-1.025 POCT PH U (test code = 3254) * 5-8 POCT U LEUK EST (test code = 3263) * Negative - Negative POCT U NIT (test code = 3262) * Negative - Negati ve POCT U PROT (test code = 3259) trace Negative - Negat catarina POCT U GLU (test code = 3256) neg Negative - Negati ve POCT U KETONE (test code = 3258) * Negative - Neg ative POCT U UROBILI (test code = 3260) * 0.2-1 POCT U BILI (test code = 3261) * Negative - Negat catarina POCT U BLD (test code = 3257) * Negative - Negati ve POCT U COLOR (test code = 3266) * POCT U APPEAR (test code = 3267) * Lab Interpretation (test cod e = 04104-4) [facility] [id number] 19:08:00* Test Item Value Reference Range Interpretation Comme nts POCT U SP GRAV (test code = 3255) . 1.005-1.025 POCT PH U (test code = 3254) . 5-8 POCT U LEUK EST (test code = 3263) . Negative - N egative POCT U NIT (test code = 3262) . Negative - Negati ve POCT U PROT (test code = 3259) 1+ Negative - Negat catarina POCT U GLU (test code = 3256) Neg Negative - Negati ve POCT U KETONE (test code = 3258) . Negative - Neg ative POCT U UROBILI (test code = 3260) . 0.2-1 POCT U BILI (test code = 3261) . Negative - Negat catarina POCT U BLD (test code = 3257) . Negative - Negati ve POCT U COLOR (test code = 3266) POCT U APPEAR (test code = 3267) .. [facility]"
[2023-06-21 11:11] LABS: SARS-CoV-2 Antigen CONTROL BLUE LINE VIS/BG OK; SARS-CoV-2 Antigen Rapid Res Negative (Negative)
--- NOTE | 2023-06-21 12:33 | EDPHYS ---
Physician Documentation [facility] Name: Chelita Rasmussen Age: 22 yrs Sex: Female : 2000 Arrival Date: 06/21/2023 Time: 10:16 Bed 17 Private MD: Rakesh Blanc T ED Physician Sam Sahu HPI: 06/20 12:28 This 22 yrs old Female presents to ER via Ambulatory with complaints of juanita Cough, Sore Throat, Eye Problem. 12:28 The patient or guardian reports cough, flu symptoms, arthralgias, low-grade fever, juanita myalgias, no appetite. Onset: The symptoms/episode began/occurred 2 day(s) ago. Severity of symptoms: At their worst the symptoms were mild, in the emergency department the symptoms are unchanged. Modifying factors: The symptoms are alleviated by nothing, the symptoms are aggravated by nothing. Associated signs and symptoms: The patient has no apparent associated signs or symptoms. The patient has not experienced similar symptoms in the past. Historical: - Allergies: 10:41 No Known Allergies; nj1 - PMHx: 10:41 ADD/ADHD; nj1 - PSHx: 10:41 section; nj1 - Immunization history:: Client reports having NOT received the Covid vaccine. - Infectious Disease History:: Denies. - Social history:: Smoking status: Patient denies any tobacco usage or history of. ROS: 12:29 Constitutional: Negative for fever, chills, and weight loss, Eyes: Negative for injury, juanita pain, redness, and discharge, Neck: Negative for injury, pain, and swelling, Cardiovascular: Negative for chest pain, palpitations, and edema, Abdomen/GI: Negative for abdominal pain, nausea, vomiting, diarrhea, and constipation, Back: Negative for injury and pain, : Negative for injury, bleeding, discharge, and swelling, MS/Extremity: Negative for injury and deformity, Skin: Negative for injury, rash, and discoloration, Neuro: Negative for headache, weakness, numbness, tingling, and seizure, Psych: Negative for depression, anxiety, suicide ideation, homicidal ideation, and hallucinations, Allergy/Immunology: Negative for hives, rash, and allergies, Endocrine: Negative for neck swelling, polydipsia, polyuria, polyphagia, and marked weight changes, Hematologic/Lymphatic: Negative for swollen nodes, abnormal bleeding, and unusual bruising, 12:29 ENT: Positive for rhinorrhea, sore throat, Exam: 12:29 Constitutional: This is a well developed, well nourished patient who is awake, alert, juanita and in no acute distress. Head/Face: Normocephalic, atraumatic. Eyes: Pupils equal round and reactive to light, extra-ocular motions intact. Lids and lashes normal. Conjunctiva and sclera are non-icteric and not injected. Cornea within normal limits. Periorbital areas with no swelling, redness, or edema. Neck: Trachea midline, no thyromegaly or masses palpated, and no cervical lymphadenopathy. Supple, full range of motion without nuchal rigidity, or vertebral point tenderness. No Meningismus. Chest/axilla: Normal chest wall appearance and motion. Nontender with no deformity. No lesions are appreciated. Cardiovascular: Regular rate and rhythm with a normal S1 and S2. No gallops, murmurs, or rubs. Normal PMI, no JVD. No pulse deficits. Respiratory: Lungs have equal breath sounds bilaterally, clear to auscultation and percussion. No rales, rhonchi or wheezes noted. No increased work of breathing, no retractions or nasal flaring. Abdomen/GI: Soft, non-tender, with normal bowel sounds. No distension or tympany. No guarding or rebound. No evidence of tenderness throughout. Back: No spinal tenderness. No costovertebral tenderness. Full range of motion. Skin: Warm, dry with normal turgor. Normal color with no rashes, no lesions, and no evidence of cellulitis. MS/ Extremity: Pulses equal, no cyanosis. Neurovascular intact. Full, normal range of motion. Neuro: Awake and alert, GCS 15, oriented to person, place, time, and situation. Cranial nerves II-XII grossly intact. Motor strength 5/5 in all extremities. Sensory grossly intact. Cerebellar exam normal. Normal gait. Psych: Awake, alert, with orientation to person, place and time. Behavior, mood, and affect are within normal limits. 12:29 ENT: Posterior pharynx: Airway: normal, no evidence of obstruction, Tonsils: are normal in appearance, enlarged on the right, enlarged on the left, Uvula: normal, midline, non-edematous, no erythema, Vital Signs: 10:31 BP 142 / 91; Pulse 90; Resp 17; Temp 98.3(O); Pulse Ox 100% on R/A; Weight 108.86 kg; nj1 Height 5 ft. 6 in. ; Pain 7/10; 12:52 BP 128 / 78; Pulse 85; Resp 18; Temp 97.9; Pulse Ox 99% on R/A; ph 10:31 Body Mass Index 38.74 (108.86 kg, 167.64 cm) nj1 10:31 Pain Scale: Adult nj1 MDM: 10:19 Patient medically screened. juanita 12:30 Differential Diagnosis: Obstructed Airway Bronchitis Influenza Upper Respiratory juanita Infection Sinusitis Pharyngitis Otitis Media Allergic Rhinitis Viral Syndrome Pneumonia. Data reviewed: vital signs, nurses notes, lab test result(s). Consideration of Admission/Observation Escalation of care including admission/observation considered. I considered the following discharge prescriptions or medication management in the emergency department Medications were administered in the Emergency Department. See MAR. Test considered but Not performed: Labs: no cbc, no comp met. Care significantly affected by the following chronic conditions: Obesity, adhd. 06/20 10:19 Order name: SARS RAPID [facility] 06/20 10:19 Order name: Flu [facility] 06/20 10:19 Order name: Strep [facility] 06/20 10:41 Order name: RSV 06/20 11:12 Order name: Throat Culture EDMS Administered Medications: 12:51 Drug: AZITHromycin PO 500 mg PO once Route: PO; ph 12:51 Follow up: Response: No adverse reaction ph 12:51 Drug: predniSONE PO 40 mg PO once Route: PO; ph 12:51 Follow up: Response: No adverse reaction ph Disposition Summary: 06/21/23 12:33 Discharge Ordered Notes: Location: Home juanita Problem: new juanita Symptoms: have improved juanita Condition: Stable juanita Diagnosis - Acute upper respiratory infection, unspecified juanita - Acute pharyngitis, unspecified juanita Followup: juanita - With: Rakesh Blanc MD - When: 2 - 3 days - Reason: Recheck today's complaints, Continuance of care, Re-evaluation by your physician Discharge Instructions: - Discharge Summary Sheet juanita - Pharyngitis juanita - Sore Throat juanita - Upper Respiratory Infection, Adult juanita - Viral Respiratory Infection juanita - Cool Mist Vaporizer juanita - Strep Throat, Adult, [id number] juanita - Upper Respiratory Infection, Adult, Awif-nn-Njel juanita - Pharyngitis, Ozjm-[id number]-Vwkn [facility] Forms: - Medication Reconciliation Form juanita - Thank You Letter juanita - Antibiotic Education juanita - Prescription Opioid Use juanita - Patient Portal Instructions juanita - Leadership Thank You Letter juanita - Work release form Prescriptions: - Laura-D 12 Hour 60-120 mg Oral Tablet Sustained Release 12 hr - take 1 tablet ORAL route every 12 hours As needed; 20 tablet; Refills: 0, [facility] Product Selection Permitted - Tessalon Perles 100 mg Oral capsule - take 2 capsule ORAL route every 8 hours As needed; 30 capsule; Refills: 0, [facility] Product Selection Permitted - Medrol (Jethro) 4 mg Oral Tablets, Dose Pack - take 1 tablet ORAL route as directed - follow package instructions; 1 packet; [facility] Refills: 0, Product Selection Permitted - Zithromax 500 mg Oral Tablet - take 1 tablet ORAL route once daily for 5 days; 5 tablet; Refills: 0, Product juanita Selection Permitted Signatures: Dispatcher [employer] EDMS Sam Sahu MD MD cha Hall, Patricia, RN RN ph Rylie Mendoza, RN RN nj1 Corrections: (The following items were deleted from the chart) 10:20 10:20 SARS-COV-2 Antigen Rapid+I.LAB.BRZ ordered. EDMS EDMS 10:20 10:20 Influenza Screen (A \T\ B)+BA.LAB.BRZ ordered. EDMS EDMS 10:20 10:20 Group A Streptococcus Rapid Sc+BA.LAB.BRZ ordered. EDMS EDMS 10:41 10:41 Respiratory Syncytial Virus Ag+BA.LAB.BRZ ordered. EDMS EDMS
--- NOTE | 2023-06-21 12:33 | ER ---
Nurse's Notes [facility] Name: Chelita Rasmussen Age: 22 yrs Sex: Female : 2000 Arrival Date: 06/21/2023 Time: 10:16 Bed 17 Private MD: Rakesh Blanc T Diagnosis: Acute upper respiratory infection, unspecified;Acute pharyngitis, unspecified Presentation: 06/20 10:31 Chief complaint: Patient states: Runny nose, coughing green mucus, sore throat and ears nj1 popping since , getting worse. Eyes irritated and swollen. Exposed to RSV. 10:31 Coronavirus screen: Vaccine status: Patient reports being unvaccinated. Ebola Screen: nj1 Patient denies travel to an Ebola-affected area in the 21 days before illness onset. Initial Sepsis Screen: Does the patient meet any 2 criteria? No. Patient's initial sepsis screen is negative. Does the patient have a suspected source of infection? No. Patient's initial sepsis screen is negative. Risk Assessment: Do you want to hurt yourself or someone else? Patient reports no desire to harm self or others. Onset of symptoms was June 19, 2023. 10:31 Method Of Arrival: Ambulatory nj 10:31 Acuity: RAGHAV 3 nj1 Historical: - Allergies: 10:41 No Known Allergies; nj1 - PMHx: 10:41 ADD/ADHD; nj1 - PSHx: 10:41 section; nj1 - Immunization history:: Client reports having NOT received the Covid vaccine. - Infectious Disease History:: Denies. - Social history:: Smoking status: Patient denies any tobacco usage or history of. Screenin:46 [facility] ED Fall Risk Assessment (Adult) Score/Fall Risk Level 0 - 2 = Low Risk ab3 Oriented to surroundings, Maintained a safe environment, Educated pt \T\ family on fall prevention, incl call for assistance when getting out of bed, Assessed \T\ reinforced patient's understanding of fall precautions, Provided non-skid footwear. 10:47 Abuse screen: Denies threats or abuse. Nutritional screening: No deficits noted. ab3 Tuberculosis screening: No symptoms or risk factors identified. Never had TB. Possible symptoms: None Risk factors: None. 10:50 Tuberculosis screening: Possible symptoms: None. ab3 Assessment: 10:48 General: Appears in no apparent distress. obese, Behavior is cooperative, Reports ab3 fatigue for 2-3 days. Pain: Complains of pain in Generalized body aches since last . Neuro: No deficits noted. Cardiovascular: No deficits noted. Respiratory: No deficits noted. Reports 10:48 Respiratory: Reports cough that is productive, Airway is patent Respiratory effort is ab3 even, unlabored, Breath sounds are clear bilaterally. EENT: Reports nasal congestion since nasal discharge that is green ringing intermittent 'popping' in bilateral ears.. Denies. 10:48 Musculoskeletal: Reports generalized body aches. ab3 12:51 Reassessment: Patient appears in no apparent distress at this time. Patient and/or ph family updated on plan of care and expected duration. Pain level reassessed. Patient is alert, oriented x 3, equal unlabored respirations, skin warm/dry/pink. Vital Signs: 10:31 BP 142 / 91; Pulse 90; Resp 17; Temp 98.3(O); Pulse Ox 100% on R/A; Weight 108.86 kg; nj1 Height 5 ft. 6 in. ; Pain 7/10; 12:52 BP 128 / 78; Pulse 85; Resp 18; Temp 97.9; Pulse Ox 99% on R/A; ph 10:31 Body Mass Index 38.74 (108.86 kg, 167.64 cm) nj1 10:31 Pain Scale: Adult [facility] ED Course: 10:18 Patient arrived in ED. rg4 10:18 Rakesh Blanc MD is Private Physician. rg4 10:19 Sam Sahu MD is Attending Physician. juanita 10:20 Patient's name was called from ER lobby. No response. nj1 10:41 Earline Mcwilliams, RN is Primary Nurse. ph 10:41 Triage completed. nj1 10:42 Arm band placed on right wrist. nj1 10:43 COVID swab sent to lab. Flu and/or RSV swab sent to lab. Strep swab sent to lab. ab3 10:46 RSV Sent. ab3 10:46 Strep Sent. ab3 10:46 Flu Sent. ab3 10:46 SARS RAPID Sent. ab3 12:32 Rakesh Blanc MD is Referral Physician. juanita 12:52 Patient has correct armband on for positive identification. Bed in low position. Call light in reach. 12:52 No provider procedures requiring assistance completed. Patient did not have IV access ph during this emergency room visit. Administered Medications: 12:51 Drug: AZITHromycin PO 500 mg PO once Route: PO; ph 12:51 Follow up: Response: No adverse reaction ph 12:51 Drug: predniSONE PO 40 mg PO once Route: PO; ph 12:51 Follow up: Response: No adverse reaction ph Medication: 12:52 VIS not applicable for this client. ph Outcome: 12:33 Discharge ordered by . juanita 12:52 Discharged to home ambulatory, 12:52 Condition: good 12:52 Discharge instructions given to patient, Instructed on discharge instructions, follow up and referral plans. medication usage, Demonstrated understanding of instructions, follow-up care, medications, Prescriptions given X 4, 12:52 Patient left the ED. ph Signatures: Sam Sahu MD MD cha Hall, Patricia, RN RN Maria E Gilman rg4 Rylie Mendoza RN RN nj1 Patt De León RN RN ab3 Corrections: (The following items were deleted from the chart) 10:50 10:47 Abuse screen: Denies threats or abuse. ab3 ab3
[2023-06-21] MEDS ORDERED: AZITHROMYCIN 250 MG TAB ONE (12:43)
[2023-06-21] MEDS ORDERED: predniSONE 20 MG TAB ONE (12:43)
[2023-06-21 15:29] VITALS: BP 128/78; TEMP 97.9; O2SAT 99
== END 2023-06-21 12:52 | disposition home or self-care (01) ==
LOC: ER 10:16
DX: J06.9 Acute upper respiratory infection, unspecified (principal); Z11.52 Encounter for screening for COVID-19; Z28.310 Unvaccinated for COVID-19
CPT/HCPCS: 87070; 36415; 87081; 87807; 87804 ×2; 99284; 87811; J7512

== ENCOUNTER 2024-03-16 01:37 | Emergency (ER) | payer BC ==
--- OUTSIDE RECORDS SUMMARY | 2024-03-16 01:40 | XMS REPORT | Continuity of Care Document ---
Author Name Unknown Address [address] [facility] [address] thconnect Address [address] [address] [address] [place] [address] Care Team Providers Care Security Operations Specialist Name Role Phone ZARI BAER Primary Care Physician Unav ailable ELVIA BARRETT Attending Clinician Unavaila ZARI Morrell Attending Clinician Unavail able CARRIE GUY Attending Clinician Unavailab le Provider, Jannet Temp Attending Clinician Deisi vailable Carrie An Attending Clinician + [phone] Visit, Jannet Nurse Attending Clinician Unava ilwong Baer WHZari ROSALES Attending Clinician + Adela Patrick MD, Christianson Attending Clinician + Juan Ramon Ingram MD Attending Clinician [phone] Irma Joy DO Attending Clinician [phone] Jaylan HOUSTON, Juan Alberto Montero Attending Clinician [phone] Lab, Jannet Attending Clinician Unavailable 5, [facility] Room Attending Clinician UnavailBelia Krishnamurthy MD Attending Clinician [phone] BELIA OROSCO Attending Clinician UnavailLaverne Davis Attending Clinician [phone] LAVERNE FERREIRA Attending Clinician Unavailable FABRIZIO BEEBE Attending Clinician Unavailable Fabrizio Beebe DO Attending Clinician [phone] [facility] Attending Clinician Unavailable TAMIA CLOUD Attending Clinician Natalie rodgers 2, [facility] Room Attending Clinician Unavailab chas Cardenas DO Steven Attending Clinician [phone] ANNA FELICIANO Attending Clinician Unavailab Anna Chacon DO Attending Clinician [phone] Doctor Unassigned, Bejou Attending Clinician U Jenniffer Mata Attending Clinician [phone] JENNIFFER RENTERIA Attending Clinician Unavailable Tamia Cloud MD Admitting Clinician + TAMIA CLOUD Admitting Clinician FABRIZIO Luna Admitting Clinician Unavailable ANNA FELICIANO Admitting Clinician Unavailab JENNIFFER Zhao Admitting Clinician Unavailable Payers Payer Name Policy Type Policy Number Effective Date Expirati on Date Source [facility] [id number] 2021 00:00:00 [facility] PPO/POS [id number] 2021 00:00:00 2021 00:00:00 Problems Condition Name Condition Details Condition Category Status Onset Date Resolution Date Last Treatment Date Treating Clinician Comments Source Hypertensi on in , pre-existi ng, antepartum Hypertensi on in , pre-existi ng, antepartum Disease Active 12-10 00:00: 00 [facility] 38 weeks gestation of 38 weeks gestation of Disease Active 12-10 00:00: 00 [facility] Positive GBS test Positive GBS test Disease Active 11-26 00:00: 00 Overview: Formattin g of this note might be different from the original. Address [facility] Elevated blood pressure reading without diagnosis of hypertensi on Elevated blood pressure reading without diagnosis of hypertensi on Disease Active 11-23 00:00: 00 [facility] Abnormal maternal glucose tolerance, antepartum Abnormal maternal glucose tolerance, antepartum Disease Active 6-24 00:00: 00 Overview: Formattin g of this note might be different from the original. Passed 3hr gtt [facility] Back pain in Back pain in Disease Active 6-23 00:00: 00 [facility] UTI in UTI in Disease Active 3-03 00:00: 00 Overview: Formattin g of this note might be different from the original. Reports dx at the ER, currently on meds, elda next visit-neg [facility] Chlamydia infection, current Chlamydia infection, current Disease Active 2-07 00:00: 00 Overview: Formattin g of this note might be different from the original. Neg elda [facility] Rubella non-immune status, antepartum Rubella non-immune status, antepartum Disease Active 2-04 00:00: 00 [facility] Susceptibl e to varicella (non-immun e), currently Susceptibl e to varicella (non-immun e), currently Disease Active 2-04 00:00: 00 Overview: Formattin g of this note might be different from the original. Address pp [facility] Supervisio n of high-risk Supervisio n of high-risk Disease Active 2-03 00:00: 00 [facility] Obesity in Obesity in Disease Active 10-14 00:00: 00 [facility] Acute tonsilliti s due to other specified organisms Acute tonsilliti s due to other specified organisms Disease Active 1- 00:00: 00 [facility] Sore throat Sore throat Disease Active 03-22 00:00: 00 [facility] Allergies, Adverse Reactions, Alerts Allergy Name Allergy Type Status Severity Reaction(s) Onset Date Inactive Date Treating Clinician Comments Source NO KNOWN ALLERGIE S Drug Class Active [facility] Social History Social Habit Start Date Stop Date Quantity Comments Source ASSERTION 2021-03-29 00:00:00 [facility] of Social function 2022-03-14 00:00:00 2022-03-14 00:00:00 [facility] Exposure to SARS-CoV-2 (event) 2021-12-22 00:00:00 2022-01-01 13:04:00 Not sure [facility] Alcohol intake 2021-07-12 00:00:00 2021-07-12 00:00:00 Ex-drinker (finding) [facility] Tobacco use and exposure 2021-04-19 00:00:00 2021-04-19 00:00:00 Former smokeless tobacco user [facility] Tobacco Comment 2021-04-19 00:00:00 2021-04-19 00:00:00 quit when she found out she was [facility] History of tobacco use 2021-04-15 00:00:00 User of smokeless tobacco [facility] Sex Assigned At 2000 00:00:00 2000 00:00:00 [facility] Smoking Status Start Date Stop Date Source Never smoked tobacco [facility] Medications Ordered Medication Name Filled Medication Name Start Date Stop Date Current Medication? Ordering Clinician Indication Dosage Frequency Signature (SIG) Comments Components Source vit no.130-iron -folic ( VITAMIN) 12-13 00:00: 00 Yes [id number] 1{tbl} Take 1 tablet by mouth in the morning. [facility] docusate 100 mg capsule 12-13 00:00: 00 Yes [id number] 200mg Take 2 capsules by mouth once daily as needed for Constipati on. [facility] ferrous sulfate 325 mg (65 mg iron) tablet 12-13 00:00: 00 Yes [id number] 325mg Take 1 tablet by mouth in the morning and 1 tablet in the evening. [facility] ibuprofen 600 mg tablet 12-13 00:00: 00 Yes [id number] 600mg Take 1 tablet by mouth every 6 (six) hours as needed (Pain). Take with food or milk. [facility] HYDROcodone -acetaminop hen 5-325 mg tablet 12-13 00:00: 00 Yes [id number] 1{tbl} Take 1 tablet by mouth every 6 (six) hours as needed for Pain (scale 7-10) or Pain (scale 4-6) (Pain scale above 4). Do not exceed 3 grams of acetaminop hen in 24 hours. Indication s: acute pain [facility] varicella virus vaccine live (VARIVAX) injection and diluent vial 12-12 11:29: 58 Yes 1{each} 0.5 mL (1 Each), Subcutaneo us, ONCE-PRIOR TO DISCHARGE, 1 dose, Starting on Fri12/12/21 at 0629, Until Discontinu ed, Routine, Give vaccine prior to discharge [facility] ketorolac (TORADOL) injection 30 mg 12-11 23:43: 51 12-12 00:03 :00 No 30mg 30 mg, Slow IV Push, PRN, 1 dose, Starting on Fri12/11/21 at 1843, Until Fri12/11/21 at 1903, Routine, Pain (scale 7-10) [facility] lactated ringers IV infusion 1,000 mL 12-11 23:30: 00 12-12 01:50 :00 No 1000mL at 125 mL/hr, 1,000 mL, IV Infusion, ONCE, 1 dose, On Fri12/11/21 at 1830, Routine [facility] rho(D) immune globulin (RHOGAM) syringe 300 mcg 12-11 23:21: 54 Yes 300ug 300 mcg, Intramuscu lar, ONCE, For 1 dose, Conditiona l, Routine [facility] HYDROcodone -acetaminop hen (NORCO 5) 5-325 mg tablet 2 tablet 12-11 23:17: 46 Yes 2{tbl} 2 tablet, Oral, Q6HPRN, Starting on Fri12/11/21 at 1817, Until Discontinu ed, Routine, Pain (scale 7-10), Alternate with Ibuprofen [facility] HYDROcodone -acetaminop hen (NORCO 5) 5-325 mg tablet 1 tablet 12-11 23:17: 46 Yes 1{tbl} 1 tablet, Oral, Q6HPRN, Starting on Fri12/11/21 at 1816, Until Discontinu ed, Routine, Pain (scale 4-6), Alternate with Ibuprofen [facility] ibuprofen (IBU) tablet 600 mg 12-11 23:17: 46 Yes 600mg 600 mg, Oral, Q6HPRN, Starting on Fri12/11/21 at 1816, Until Discontinu ed, Routine, Pain (scale 1-3) [facility] diphenhydrA MINE (BENADRYL) injection 25 mg 12-11 23:17: 46 Yes 25mg 25 mg, Slow IV Push, Q6HPRN, Starting on Fri12/11/21 at 1816, Until Discontinu ed, Routine, Itching [facility] diphenhydrA MINE (BENADRYL) tablet 25 mg 12-11 23:17: 46 Yes 25mg 25 mg, Oral, Q6HPRN, Starting on Fri12/11/21 at 1816, Until Discontinu ed, Routine, Sleep, Itching [facility] ondansetron (ZOFRAN (PF)) injection 4 mg 12-11 23:17: 46 Yes 4mg 4 mg, Slow IV Push, Q8HPRN, Starting on Fri12/11/21 at 1816, Until Discontinu ed, Routine, Nausea and Vomiting (N/V) [facility] bisacodyL (DULCOLAX) suppository 10 mg 12-11 23:17: 46 Yes 10mg 10 mg, Rectal, QDAILYPRN, Starting on Fri12/11/21 at 1816, Until Discontinu ed, Routine, Constipati on [facility] simethicone (GAS RELIEF (SIMETHICON E)) chewable tablet 160 mg 12-11 23:17: 46 Yes 160mg 160 mg, Oral, PC+HSPRN, Starting on Fri12/11/21 at 1816, Until Discontinu ed, Routine, Gas [facility] docusate (COLACE) capsule 200 mg 12-11 23:17: 46 Yes 200mg 200 mg, Oral, QDAILYPRN, Starting on Fri12/11/21 at 1817, Until Discontinu ed, Routine, Constipati on [facility] magnesium hydroxide (MILK OF MAGNESIA) 400 mg/5 mL suspension 30 mL 12-11 23:17: 46 Yes 30mL 30 mL, Oral, QDAILYPRN, Starting on Fri12/11/21 at 1817, Until Discontinu ed, Routine, Constipati on [facility] lactated ringers IV infusion 1,000 mL 12-11 23:17: 46 Yes 1000mL at 125 mL/hr, 1,000 mL, IV Infusion, PRN, 1 dose, Starting on Fri12/11/21 at 1817, Until Discontinu ed, Routine [facility] ceFAZolin in 0.9% sodium chloride (ANCEF) 2 gram/100 mL RTU 2 g 12-11 21:05: 07 12-11 21:59 :00 No 2000mg 2 g (2,000 mg), IV Piggyback, O.R. HOLDING ONCE, 1 dose, Starting on Fri12/11/21 at 1605, Until Fri12/11/21 at 1659, Administer over 30 Minutes, 100 mL
Reas on for Anti-Infec tive: Surgical Prophylaxi s
Surgi halle Prophylaxi s: DIRECTOR SUPPLY
Duration of therapy: within 24 hours of surgery [facility] sodium citrate-cit timo acid (BICITRA) 500-334 mg/5 mL solution 30 mL 12-11 15:10: 26 12-11 21:29 :00 No 30mL 30 mL, Oral, PRE-PROCED URE ONCE, 1 dose, Starting on Fri12/11/21 at 1010, Until Discontinu ed, Routine, Surgery/Pr ocedure [facility] ropivacaine 0.2 % (NAROPIN (PF)) epidural infusion 12-11 14:10: 00 12-11 21:25 :33 No Epidural, CONTINUOUS PRN, Starting on Fri12/11/21 at 0910, Until Fri12/11/21 at 1625, Routine, Intra-op [facility] lidocaine-e pinephrine (XYLOCAINE W/EPINEPHRI NE) 1.5 %-1:200,000 injection 12-11 14:08: 00 12-11 21:25 :33 No Intraderma l, ONCE INTRA PROCEDURE, Starting on Fri12/11/21 at 0908, Until Fri12/11/21 at 1625, Routine, Intra-op [facility] proMETHazin e (PHENERGAN) 25 mg in NS 50 mL IV piggyback (CNR) 12-11 08:00: 00 12-11 10:28 :00 No 25mg 25 mg, IV Piggyback, at 200 mL/hr Administer over 15 Minutes, ONCE NOW, 1 dose, On Fri12/11/21 at 0300, Routine [facility] oxytocin (PITOCIN) 30 units in NS 500 mL IV infusion 12-11 06:23: 43 12-11 23:21 :51 No 2mU/min at 2-40 mL/hr, IV Infusion, TITRATE, Starting on Fri12/11/21 at 0123, Until Fri12/11/21 at 1821, LUDWIG [facility] butorphanol (STADOL) injection 1 mg 12-11 04:45: 00 12-11 10:13 :00 No 1mg 1 mg, Intravenou s, ONCE, 1 dose, On Fri12/10/21 at 2345, Routine [facility] sodium citrate-cit timo acid (BICITRA) 500-334 mg/5 mL solution 30 mL 12-10 18:52: 31 12-11 13:19 :00 No 30mL 30 mL, Oral, PRE-PROCED URE ONCE, 1 dose, Starting on Fri12/10/21 at 1352, Until Discontinu ed, Routine, Surgery/Pr ocedure [facility] lactated ringers IV infusion 500 mL 12-10 18:52: 31 12-11 23:21 :51 No 500mL at 999 mL/hr, 500 mL, IV Infusion, PRN - SEE INSTRUCTIO NS, Starting on Fri12/10/21 at 1352, Until Fri12/11/21 at 1821, Routine [facility] D5W-LR IV infusion 1,000 mL 12-10 18:52: 31 12-11 23:21 :51 No 1000mL at 1-125 mL/hr, IV Infusion, TITRATE, Starting on Fri12/10/21 at 1352, Until Fri12/11/21 at 1821, Routine [facility] proMETHazin e 25 mg tablet 4- 00:00: 00 12-13 00:00 :00 No [id number] 25mg Take 1 tablet by mouth every 6 (six) hours as needed for Nausea and Vomiting (N/V). [facility] multivitami n ( VITAMIN) tablet 2-03 00:00: 00 12-13 00:00 :00 No [id number] 1{tbl} Take 1 tablet by mouth daily. [facility] multivitami n ( VITAMIN) tablet 2-03 00:00: 00 12-13 00:00 :00 No [id number] 1{tbl} Take 1 tablet by mouth daily. [facility] Vital Signs Vital Name Observation Time Observation Value Comments S ource Systolic blood pressure 2022-01-01 18:05:00 128 mm[Hg] [facility] Diastolic blood pressure 2022-01-01 18:05:00 88 mm[Hg] [facility] Heart rate 2022-01-01 18:05:00 86 /min [facility] Body temperature 2022-01-01 18:05:00 36.17 Marlin [facility] Respiratory rate 2022-01-01 18:05:00 18 /min [facility] Body height 2022-01-01 18:05:00 170.2 cm [facility] Body weight 2022-01-01 18:05:00 108.636 kg [facility] BMI 2022-01-01 18:05:00 37.51 kg/m2 [facility] Systolic blood pressure 2021-12-19 15:04:00 128 mm[Hg] [facility] Diastolic blood pressure 2021-12-19 15:04:00 84 mm[Hg] [facility] Heart rate 2021-12-19 15:04:00 82 /min Un[facility] Body temperature 2021-12-19 15:04:00 36.44 Marlin [facility] Respiratory rate 2021-12-19 15:04:00 18 /min [facility] Body weight 2021-12-19 15:04:00 106.822 kg [facility] BMI 2021-12-19 15:04:00 36.88 kg/m2 [facility] Systolic blood pressure 2021-12-14 16:51:00 142 mm[Hg] [facility] Diastolic blood pressure 2021-12-14 16:51:00 92 mm[Hg] [facility] Heart rate 2021-12-14 16:51:00 82 /min Unive [facility] Body temperature 2021-12-14 16:51:00 36.28 Marlin [facility] Respiratory rate 2021-12-14 16:51:00 18 /min [facility] Oxygen saturation in Arterial blood by Pulse oximetry 2021-12-14 16:51:00 99 /min [facility] Systolic blood pressure 2021-12-11 23:15:00 135 mm[Hg] [facility] Diastolic blood pressure 2021-12-11 23:15:00 87 mm[Hg] [facility] Heart rate 2021-12-11 23:15:00 96 /min Unive [facility] Respiratory rate 2021-12-11 23:15:00 23 /min [facility] Oxygen saturation in Arterial blood by Pulse oximetry 2021-12-11 23:15:00 99 /min [facility] Body temperature 2021-12-11 22:51:00 36.72 Marlin [facility] Systolic blood pressure 2021-12-10 15:23:00 140 mm[Hg] [facility] Diastolic blood pressure 2021-12-10 15:23:00 92 mm[Hg] [facility] Heart rate 2021-12-10 15:13:00 89 /min Unive [facility] Body temperature 2021-12-10 15:12:00 36.56 Marlin [facility] Respiratory rate 2021-12-10 15:12:00 18 /min [facility] Body height 2021-12-10 15:12:00 170.2 cm [facility] Body weight 2021-12-10 15:12:00 118.927 kg [facility] BMI 2021-12-10 15:12:00 41.06 kg/m2 [facility] Systolic blood pressure 2021-12-07 19:11:00 132 mm[Hg] [facility] Diastolic blood pressure 2021-12-07 19:11:00 92 mm[Hg] [facility] Heart rate 2021-12-07 19:11:00 83 /min Unive [facility] Body temperature 2021-12-07 19:11:00 36.83 Marlin [facility] Respiratory rate 2021-12-07 19:11:00 18 /min [facility] Body height 2021-12-07 19:11:00 170.2 cm [facility] Body weight 2021-12-07 19:11:00 120.657 kg [facility] BMI 2021-12-07 19:11:00 41.66 kg/m2 [facility] Oxygen saturation in Arterial blood by Pulse oximetry 2021-12-07 19:11:00 99 /min [facility] Systolic blood pressure 2021-11-30 19:07:00 134 mm[Hg] [facility] Diastolic blood pressure 2021-11-30 19:07:00 90 mm[Hg] [facility] Heart rate 2021-11-30 19:07:00 85 /min Un[facility] Body temperature 2021-11-30 19:07:00 36.5 Marlin [facility] Respiratory rate 2021-11-30 19:07:00 18 /min [facility] Body height 2021-11-30 19:07:00 170.2 cm [facility] Body weight 2021-11-30 19:07:00 118.077 kg [facility] BMI 2021-11-30 19:07:00 40.77 kg/m2 [facility] Procedures Procedure Date / Time Performed Performing Clinician Source CBC WITH DIFF 2021-12-12 09:54:00 Fina Ortiz [facility] CBC WITH DIFF 2021-12-12 09:54:00 Fina Ortiz [facility] SECTION 2021-12-11 21:37:00 Juan Ramon Ingram [facility] SECTION 2021-12-11 21:37:00 Juan Ramon Ingram [facility] CENTRAL NEURAXIAL BLOCK 2021-12-11 14:18:09 Donna Joy [facility] COVID-19 (ID NOW RAPID TESTING) 2021-12-10 19:30:00 Tamia Cloud [facility] LAB ONLY COVID INTERPRETATION 2021-12-10 19:30:00 Adela Patrick [facility] COVID-19 (ID NOW RAPID TESTING) 2021-12-10 19:30:00 Tamia Cloud [facility] LAB ONLY COVID INTERPRETATION 2021-12-10 19:30:00 Adela Patrick [facility] SGOT (ASPARTATE AMINO TRANSFER) 2021-12-10 19:28:00 Yeimy Gotti [facility] CREATININE 2021-12-10 19:28:00 Yeimy Gotti [facility] ALANINE AMINO TRANSFERASE(SGPT 2021-12-10 19:28:00 Yeimy Gotti [facility] LACTATE DEHYDROGENASE 2021-12-10 19:28:00 Inna Gotti [facility] URIC ACID 2021-12-10 19:28:00 Yeimy Gotti [facility] CBC WITH DIFF 2021-12-10 19:28:00 Yeimy Gotti [facility] URINALYSIS 2021-12-10 19:28:00 Yeimy Gotti [facility] HEPATITIS B SURFACE ANTIGEN 2021-12-10 19:28:00 Yeimy Gotti [facility] PROTEIN CREAT RATIO URINE RANDOM 2021-12-10 19:28:00 Yeimy Gotti [facility] GALV ONLY - SYPHILIS IGG/IGM 2021-12-10 19:28:00 Yeimy Gotti [facility] SGOT (ASPARTATE AMINO TRANSFER) 2021-12-10 19:28:00 Yeimy Gotti [facility] CREATININE 2021-12-10 19:28:00 Yeimy Gotti [facility] ALANINE AMINO TRANSFERASE(SGPT 2021-12-10 19:28:00 Shen Yeimy [facility] LACTATE DEHYDROGENASE 2021-12-10 19:28:00 Inna Gotti [facility] URIC ACID 2021-12-10 19:28:00 Yeimy Gotti [facility] CBC WITH DIFF 2021-12-10 19:28:00 Yeimy Gotti [facility] URINALYSIS 2021-12-10 19:28:00 Yeimy Gotti [facility] HEPATITIS B SURFACE ANTIGEN 2021-12-10 19:28:00 Yeimy Gotti [facility] PROTEIN CREAT RATIO URINE RANDOM 2021-12-10 19:28:00 Yeimy Gotti [facility] GALV ONLY - SYPHILIS IGG/IGM 2021-12-10 19:28:00 Yeimy Gotti [facility] HB ABO GROUPING 2021-12-10 19:04:00 Yeimy Gotti [facility] RHO (D) IMMUNE GLOBULIN 2021-12-10 19:04:00 Inna Ortiz [facility] HB ABO GROUPING 2021-12-10 19:04:00 Yeimy Gotti [facility] RHO (D) IMMUNE GLOBULIN 2021-12-10 19:04:00 Inna Ortiz [facility] POCT URINALYSIS 2021-12-10 15:16:00 Zari Baer [facility] POCT URINALYSIS 2021-12-07 19:13:00 Zari Baer [facility] POCT URINALYSIS 2021-11-30 19:08:00 Zari Baer [facility] Encounters Start Date/Time End Date/Time Encounter Type Admission Type Attending [facility] Facility Care Department Encounter ID Source 2022-11-01 11:37:51 2022-11-01 11:37:51 Outpatient JOE JOE [id number] Michael Tee 2022-04-09 09:15:00 2022-04-09 09:15:00 Outpatient R ELVIA BARRETT [facility] [id number] [facility] 2022-02-18 14:15:00 2022-02-18 14:15:00 Outpatient ZARI HASSAN [facility] [id number] [facility] 2022-01-22 09:45:00 2022-01-22 09:45:00 Outpatient R CARRIE GUY [facility] [id number] [facility] 2022-01-01 12:45:00 2022-01-01 13:37:39 Outpatient CARRIE MUNOZ [facility] [id number] [facility] 2022-01-01 12:45:00 2022-01-01 13:37:39 Routine Visit Provider, Carrie Hansen [facility] DIRECTOR [facility]ILD [facility] .840.114 350.1.13.10 [id number] [id number] [facility] 2021-12-19 10:00:00 2021-12-19 10:12:38 Nurse Visit Visit, Jannet Nurse Zari Baer [facility] DIRECTOR [facility] .840.114 350.1.13.10 [id number] [id number] [facility] 2021-12-19 10:00:00 2021-12-19 10:00:00 Outpatient R ZARI BAER [facility] [id number] [facility] 2021-12-10 13:29:00 2021-12-14 16:35:00 Hospital Encounter Adela Annecathy Tamia pruett [facility] [id number] 350.1.13.10 [id number] [facility] 2021-12-11 16:24:00 2021-12-11 18:15:00 Surgery Juan Ramon Ingram [facility] [id number] 350.1.13.10 [id number] [id number] [facility] 2021-12-11 08:20:00 2021-12-11 16:45:00 Anesthesia Event Irma Joy, Juan Alberto M [facility] [id number] 350.1.13.10 [id number] [id number] [facility] 2021-12-10 10:00:00 2021-12-10 10:29:37 Outpatient R ZARI BAER [facility] [id number] [facility] 2021-12-10 10:00:00 2021-12-10 10:29:37 Routine Visit Zari Baer [facility] DIRECTOR [facility] [id number] 350.1.13.10 [id number] [id number] [facility] 2021-12-10 10:00:00 2021-12-10 10:29:37 Outpatient ZARI HASSAN HIDEUCE ELIN [id number] [facility] 2021-12-07 14:00:00 2021-12-07 14:23:44 Outpatient R ZARI BAER [facility] [id number] [facility] 2021-12-07 14:00:00 2021-12-07 14:23:44 Routine Visit Zari Baer [facility] DIRECTOR [facility]ILD [facility] 1..840.114 350.1.13.10 [id number] [id number] [facility] 2021-11-30 14:00:00 2021-11-30 14:23:51 Outpatient R ZARI BAER [facility] [id number] [facility] 2021-11-30 14:00:00 2021-11-30 14:23:51 Outpatient R ZARI BAER [facility] [id number] [facility] 2021-11-30 14:00:00 2021-11-30 14:23:51 Routine Visit Zari Baer [facility] DIRECTOR [facility]ILD [facility] 1.840.114 350.1.13.10 4.2.7.2.686 [id number] [facility] 2021-11-26 00:00:00 2021-11-26 00:00:00 Telephone Zari Baer [facility] DIRECTOR [facility] 1..840.114 350.1.13.10 [id number] [id number] [facility] 2021-11-23 14:45:00 2021-11-23 15:30:26 Outpatient R ZARI BAER [facility] [id number] [facility] 2021-11-23 14:45:00 2021-11-23 15:30:26 Routine Visit Zari Baer [facility] DIRECTOR [facility] & [facility] 1..840.114 350.1.13.10 4.2.7.2.686 [id number] 107 [id number] [facility] 2021-11-23 14:45:00 2021-11-23 15:30:26 Outpatient R ZARI BAER [facility] [id number] [facility] 2021-11-09 16:00:00 2021-11-09 16:19:35 Outpatient R ZARI BAER [facility] [id number] [facility] 2021-11-09 16:00:00 2021-11-09 16:19:35 Routine Visit Zari Baer [facility] DIRECTOR SUPPLY [facility] MATER[facility] & CHILD HEALTH [facility] 1..840.114 350.1.13.10 4.2.7.2.686 [id number] 107 [id number] [facility] 2021-10-26 16:00:00 2021-10-26 16:21:05 Outpatient R ZARI BAER [facility] [id number] [facility] 2021-10-26 16:00:00 2021-10-26 16:21:05 Routine Visit Zari Baer [facility] DIRECTOR SUPPLY [facility] & CHILD [facility] ..840.114 350.1.13.10 4.2.7.2.686 [id number] 107 [id number] [facility] 2021-10-25 16:00:00 2021-10-25 16:00:00 Outpatient R ZARI BAER [facility] [id number] [facility] 2021-10-11 14:15:00 2021-10-11 15:24:50 Routine Visit Zari Baer [facility] DIRECTOR SUPPLY [facility] & CHILD [facility] ..840.114 350.1.13.10 4.2.7.2.686 [id number] 107 [id number] [facility] 2021-10-11 14:15:00 2021-10-11 15:24:50 Outpatient R ZARI BAER [facility] [id number] [facility] 2021-10-11 14:15:00 2021-10-11 14:15:00 Outpatient R ZACARIASTRAVISHAYLEYZARI [facility] [id number] [facility] 2021-09-28 00:00:00 2021-09-28 00:00:00 Telephone Zari Baer [facility]IDEU[facility] DIRECTOR SUPPLY [facility] & CHILD [facility] ..840.114 350.1.13.10 4.2.7.2.686 [id number] 107 [id number] [facility] 2021-09-27 15:45:00 2021-09-27 16:42:10 Outpatient R ZARI BAER [facility] [id number] [facility] 2021-09-27 15:45:00 2021-09-27 16:42:10 Routine Visit Zari Baer [facility] DIRECTOR SUPPLY [facility] & [facility]ILD [facility] ..840.114 350.1.13.10 4.2.7.2.686 [id number] 107 [id number] [facility] 2021-09-27 15:45:00 2021-09-27 15:45:00 Outpatient R ZARI BAER [facility] [id number] [facility] 2021-09-11 07:45:00 2021-09-11 08:01:09 Outpatient R ZARI BAER [facility] [id number] [facility] 2021-09-11 07:45:00 2021-09-11 08:01:09 Podiatric Medicine Doctor Visit Lab, Ang-Rmchp Zari Baer [facility] DIRECTOR SUPPLY [facility] CHILD [facility] ..840.114 350.1.13.10 4.2.7.2.686 [id number] 107 [id number] [facility] 2021-09-07 00:00:00 2021-09-07 00:00:00 Telephone Zari Baer [facility] DIRECTOR SUPPLY [facility] & [facility]ILD [facility] 1.2840.114 350.1.13.10 4.2.7.2.686 [id number] 107 [id number] [facility] 2021-09-06 14:00:00 2021-09-06 14:52:09 Outpatient R ZARI BAER [facility] [id number] [facility] 2021-09-06 14:00:00 2021-09-06 14:52:09 Routine Visit Zari Baer [facility] DIRECTOR SUPPLY [facility]ILD [facility] 1.0.114 350.1.13.10 4.2.7.2.686 [id number] 107 [id number] [facility] 2021-09-06 14:00:00 2021-09-06 14:52:09 Outpatient R ZARI BAER [facility] [id number] [facility] 2021-09-06 00:00:00 2021-09-06 00:00:00 Letter (Out) Zari Baer [facility] DIRECTOR SUPPLY [facility]ILD [facility] 1..114 350.1.13.10 4.2.7.2.686 [id number] 107 [id number] [facility] 2021-09-05 00:00:00 2021-09-05 00:00:00 Abstract Zari Baer [facility] DIRECTOR SUPPLY [facility] 1.840.114 350.1.13.10 4.2.7.2.686 [id number] [facility] 2021-08-30 09:15:00 2021-08-30 10:00:00 Podiatric Medicine Doctor Visit 5, [facility] 1..114 350.1.13.10 4.2.7.2.686 [id number] [facility] 2021-08-30 09:15:00 2021-08-30 09:15:00 Outpatient P BELIA OROSCO [facility] [id number] [facility] 2021-08-23 18:20:00 2021-08-23 18:40:00 Urgent Care Laverne Ferreira [facility], [facility] 1..840.114 350.1.13.10 4.2.7.2.686 [id number] [facility] 2021-08-23 18:20:00 2021-08-23 18:20:00 Outpatient R LAVERNE FERREIRA [facility] [id number] [facility] 2021-08-09 14:45:00 2021-08-09 15:11:15 Outpatient R ZARI BAER [facility] [id number] [facility] 2021-08-09 14:45:00 2021-08-09 15:11:15 Routine Visit Zari Baer [facility] DIRECTOR SUPPLY [facility] & CHILD HEALTH [facility] 1.84.114 350.1.13.10 4.2.7.2.686 [id number] 107 [id number] [facility] 2021-08-02 00:00:00 2021-08-02 00:00:00 Abstract Zari Baer [facility] DIRECTOR SUPPLY [facility] & [facility]ILD [facility] 1..840.114 350.1.13.10 4.2.7.2.686 [id number] 107 [id number] [facility] 2021-07-30 08:00:00 2021-07-30 09:42:31 Podiatric Medicine Doctor Visit 5, [facility] Us Belia Cloud [facility] 1..114 350.1.13.10 4.2.7.2.686 [id number] [facility] 2021-07-30 08:00:00 2021-07-30 09:42:31 Outpatient P BELIA OROSCO [facility] [id number] [facility] 2021-07-30 08:00:00 2021-07-30 08:00:00 Outpatient Ermias BELIA OROSCO [facility] [id number] [facility] 2021-07-18 00:00:00 2021-07-18 00:00:00 Telephone Zari Baer [facility] DIRECTOR SUPPLY [facility]ILD [facility] 1..840.114 350.1.13.10 4.2.7.2.686 [id number] 107 [id number] [facility] 2021-07-17 00:00:00 2021-07-17 00:00:00 Patient Secure Msg Zari Baer [facility] DIRECTOR SUPPLY [facility]ILD [facility] 1..840.114 350.1.13.10 4.2.7.2.686 [id number] [facility] 2021-07-12 14:45:00 2021-07-12 15:59:54 Outpatient R ZARI BAER [facility] [id number] [facility] 2021-07-12 14:45:00 2021-07-12 15:00:00 Routine Visit Zari Baer [facility] DIRECTOR SUPPLY [facility]ILD [facility] 1..840.114 350.1.13.10 4.2.7.2.686 [id number] 107 [id number] [facility] 2021-07-12 14:45:00 2021-07-12 14:45:00 Outpatient R ZARI BAER [facility] [id number] [facility] 2021-07-12 14:45:00 2021-07-12 14:45:00 Outpatient R ZARI BAER [facility] [id number] [facility] 2021-07-12 00:00:00 2021-07-12 00:00:00 Letter (Out) Zari Baer [facility] DIRECTOR SUPPLY [facility]ILD [facility] 1.840.114 350.1.13.10 4.2.7.2.686 [id number] 107 [id number] [facility] 2021-07-05 06:29:00 2021-07-05 09:27:00 Emergency X FABRIZIO BEEBE ERT [id number] [facility] 2021-07-05 06:29:00 2021-07-05 09:27:00 Emergency Fabrizio Beebe [facility] 1.840.114 350.1.13.10 4.2.7.2.686 [id number] [facility] 2021-07-05 06:29:00 2021-07-05 09:27:00 Emergency X FABRIZIO BEEBE HIDEUCE ERT [id number] [facility] 2021-07-04 00:00:00 2021-07-04 00:00:00 Telephone Zari Baer [facility] DIRECTOR SUPPLY [facility]ILD [facility] 1.840.114 350.1.13.10 4.2.7.2.686 [id number] [facility] 2021-06-14 15:30:00 2021-06-14 15:57:10 Outpatient R ZARI BAER [facility] [id number] [facility] 2021-06-14 15:30:00 2021-06-14 15:57:10 Routine Visit Zari Baer [facility] DIRECTOR SUPPLY [facility]ILD [facility] 1.840.114 350.1.13.10 4.2.7.2.686 [id number] 107 [id number] [facility] 2021-06-14 00:00:00 2021-06-14 00:00:00 Letter (Out) Zari aBer [facility] DIRECTOR SUPPLY [facility]ILD [facility] 1.840.114 350.1.13.10 4.2.7.2.686 [id number] 107 [id number] [facility] 2021-06-14 00:00:00 2021-06-14 00:00:00 Abstract Zari Baer [facility] DIRECTOR [facility]Y [facility] & CHILD [facility] 1..840.114 350.1.13.10 4.2.7.2.686 [id number] 107 [id number] [facility] 2021-06-13 14:00:00 2021-06-13 14:10:30 Podiatric Medicine Doctor Visit Lab, [facility] Tamia Valentin [facility] DIRECTOR SUPPLY [facility] CHILD [facility] ..840.114 350.1.13.10 4.2.7.2.686 [id number] [facility] 2021-06-13 14:00:00 2021-06-13 14:10:30 Outpatient P TAMIA VALENTIN [facility] [id number] [facility] 2021-06-13 14:00:00 2021-06-13 14:00:00 Outpatient P TAMIA VALENTIN [facility] [id number] [facility] 2021-06-13 13:00:00 2021-06-13 13:58:46 Podiatric Medicine Doctor Visit 2, [facility] Room Tamia Valentin [facility] .840.114 350.1.13.10 4.2.7.2.686 [id number] [facility] 2021-06-13 00:00:00 2021-06-13 00:00:00 Abstract Zari Baer [facility] DIRECTOR SUPPLY [facility] CHILD [facility] 1..840.114 350.1.13.10 4.2.7.2.686 [id number] 107 [id number] [facility] 2021-06-06 14:00:00 2021-06-06 14:00:00 Outpatient P [facility] [id number] [facility] 2021-06-06 14:00:00 2021-06-06 14:00:00 Outpatient P [facility] [id number] [facility] 2021-06-06 13:00:00 2021-06-06 13:45:00 [facility]arden[facility] DIRECTOR SUP[facility]Y [facility] & CHILD [facility] 1..840.114 350.1.13.10 4.2.7.2.686 [id number] [facility] 2021-06-06 13:00:00 2021-06-06 13:00:00 Outpatient P STEVEN CARDENAS [facility] [id number] [facility] 2021-06-06 00:00:00 2021-06-06 00:00:00 Abstract Zari Baer [facility] DIRECTOR SUPPLY [facility] CHILD [facility] 1..840.114 350.1.13.10 4.2.7.2.686 [id number] [facility] 2021-05-17 13:00:00 2021-05-17 13:31:06 Outpatient R ZARI BAER HIDEUCE [facility] [id number] [facility] 2021-05-17 13:00:00 2021-05-17 13:31:06 Routine Visit Zari Baer HIDEUCE DIRECTOR SUPPLY [facility] CHILD [facility] ..840.114 350.1.13.10 4.2.7.2.686 [id number] 107 [id number] [facility] 2021-05-17 13:00:00 2021-05-17 13:31:06 Outpatient R ZARI BAER HIDEUCE [facility] [id number] [facility] 2021-05-17 13:00:00 2021-05-17 13:00:00 Outpatient R ZARI BAER [facility] [id number] [facility] 2021-05-17 00:00:00 2021-05-17 00:00:00 Letter (Out) Zari Baer [facility] DIRECTOR SUPPLY [facility] CHILD [facility] 1.840.114 350.1.13.10 4.2.7.2.686 [id number] [facility] 2021-05-08 00:00:00 2021-05-08 00:00:00 Telephone Zari Baer [facility] DIRECTOR SUPPLY [facility] CHILD [facility] 1..114 350.1.13.10 4.2.7.2.686 [id number] [facility] 2021-05-01 07:03:00 2021-05-01 08:57:00 Emergency X ANNA FELICIANO [facility] ERT [id number] [facility] 2021-05-01 07:03:00 2021-05-01 08:57:00 Emergency Anna Feliciano [facility] 1..114 350.1.13.10 4.2.7.2.686 [id number] [facility] 2021-05-01 07:03:00 2021-05-01 08:57:00 Emergency X ANNA FELICIANO [facility] ERT [id number] [facility] 2021-05-01 00:00:00 2021-05-01 00:00:00 Orders Only Doctor Unassigned, [facility] 1.0.114 350.1.13.10 4.2.7.2.686 [id number] [facility] 2021-04-23 00:00:00 2021-04-23 00:00:00 Telephone Zari Baer [facility] DIRECTOR SUPPLY [facility] CHILD [facility] 1.0.114 350.1.13.10 4.2.7.2.686 [id number] 107 [id number] [facility] 2021-04-19 08:00:00 2021-04-19 10:24:08 Outpatient R ZARI BAER [facility] [id number] [facility] 2021-04-19 08:30:00 2021-04-19 10:16:33 Outpatient R ZARI BAER [facility] [id number] [facility] 2021-04-19 08:30:00 2021-04-19 10:16:33 Outpatient R ZARI BAER [facility] [id number] [facility] 2021-04-19 08:30:00 2021-04-19 10:16:33 Initial Visit Zari Baer [facility] DIRECTOR SUPPLY [facility] 1.840.114 350.1.13.10 4.2.7.2.686 [id number] [facility] 2021-04-19 08:30:00 2021-04-19 10:16:33 Outpatient R ZARI BAER [facility] [id number] [facility] 2021-04-19 00:00:00 2021-04-19 00:00:00 Orders Only Doctor Unassigned, Bejou [facility] 1.840.114 350.1.13.10 4.2.7.2.686 [id number] [facility] 2019-06-04 15:23:11 2019-06-04 18:34:00 Emergency Jenniffer Renteria R [facility] 1.840.114 350.1.13.10 4.2.7.2.686 [id number] [facility] 2019-06-04 15:23:11 2019-06-04 18:34:00 Emergency X JENNIFFER RENTERIA [facility] ERT [id number] [facility] 2019-06-04 15:23:11 2019-06-04 18:34:00 Emergency Jenniffer Renteria [facility] 1.2.840.114 350.1.13.10 4.2.7.2.686 [id number] Results Test Description Test Time Test Comments Results Result Co mments Source [facility] IMMUNE [id number] 00:17:34* Test Item Value Reference Range Interpretation Comme nts RHIG CANDIDATE? (test code = 5055) No- see comment Patient is not a candidate for RhIg- Patient is Rh Positive.Performed at [facility] Laboratory Services - [facility] Blood [address] [address]Qbju Free: [phone] No. [id number] [facility] ONLY - SYPHILIS IGG/[id number] 16:21:06* Test Item Value Reference Range Interpretation Comme nts Syphilis IgG/IgM (test code = 69278-5) Non-reactive Non-reactive BRENDA (test code = BRENDA) Non-reactive - No serologic evidence of T. pallidum infection. Cannot exclude incubating or early syphilis. Submit a second specimen in 2-4 weeks if syphilis is clinically suspected. Equivocal - Further testing to follow. Reactive - Further testing to follow. Lab Interpretation (test code = 53101-0) Normal [facility] ONLY - SYPHILIS IGG/[id number] 16:21:06* Test Item Value Reference Range Interpretation Comme [facility] Syphilis IgG/IgM (test code = 37439-3) Non-reactive Non-reactive BRENDA (test code = BRENDA) Non-reactive - No serologic evidence of T. pallidum infection. Cannot exclude incubating or early syphilis. Submit a second specimen in 2-4 weeks if syphilis is clinically suspected. Equivocal - Further testing to follow. Reactive - Further testing to follow. Lab Interpretation (test code = 87200-7) Normal [facility] and Screen - ONCE [id number] 20:51:46 * Test Item Value Reference Range Interpretation Comme nts ABO & RH (test code = 20) O POSITIVE Performed at [facility] B Laboratory Services - [facility] Blood [address] [address]xix Free: [phone] No. [id number] IAT (test code = 1185) Negative Performed at [facility] Laboratory Services - [facility] Blood [address] Free: [phone] No. [id number] [facility] and Screen - ONCE [id number] 20:51:46 * Test Item Value Reference Range Interpretation Comme nts ABO & RH (test code = 20) O POSITIVE Performed at [facility] Laboratory [facility] - [facility] Blood [address] Free: [phone] No. [id number] IAT (test code = 1185) Negative Performed at [facility] Laboratory [facility] - [address] Free: [phone] No. [id number] [facility] BrookHepatitis B Surface [id number] 20:47:17 * Test Item Value Reference Range Interpretation Comme nts HBsAg Semi-Quantitative (dagoberto t code = 5195-3) Negative Negative [facility] B Surface Ffefddg6285-53-02 20:47:17 * Test Item Value Reference Range Interpretation Comme nts HBsAg Semi-Quantitative (dagoberto t code = 5195-3) Negative Negative [facility] BrookUric Acid Xvvyn7354-20-30 20:16:32* Test Item Value Reference Range Interpretation Comme nts URIC ACID (test code = 2882648300) 4.8 mg/dL 2.9-6 Lab Interpretation (test cod e = 14601-4) Normal [facility] Luvqiqncio5623-40-57 20:16:32* Test Item Value Reference Range Interpretation Comme nts CREATININE (test code = 3017929434) 0.63 mg/dL 0.5-1.04 eGFR (test code = 8410375493) mL/min/1.73m2 BRENDA (test code = BRENDA) Association [...] or urine or abnormalities in imaging tests). [facility] (Asparate Amino Transfer)2021-12-10 20:16:32* Test Item Value Reference Range Interpretation Comme [facility] AST(SGOT) (test code = 7606689733) 17 U/L 13-40 Lab Interpretation (test cod e = 86953-7) Normal [facility] BrookAlanine Amino Transferase (SGPT)2021-12-10 20:16:32* Test Item Value Reference Range Interpretation Comme [facility] ALTv (test code = 1742-6) 9 U/L 5-35 Lab Interpretation (test cod e = 23732-7) Normal [facility] Brook[facility] Acid Eesnn3748-05-23 20:16:32* Test Item Value Reference Range Interpretation Comme [facility] URIC ACID (test code = 5520274550) 4.8 mg/dL 2.9-6 Lab Interpretation (test cod e = 72447-9) Normal [facility] Yrgvsyxbjm1252-67-75 20:16:32* Test Item Value Reference Range Interpretation Comme [facility] CREATININE (test code = 6167791499) 0.63 mg/dL 0.5-1.04 eGFR (test code = 5963503880) mL/min/1.73m2 BRENDA (test code = BRENDA) Association [...] or urine or abnormalities in imaging tests). [facility] (Asparate Amino Transfer)2021-12-10 20:16:32* Test Item Value Reference Range Interpretation Comme nts AST(SGOT) (test code = 1424999462) 17 U/L 13-40 Lab Interpretation (test cod e = 01807-7) Normal [facility] BrookAlanine Amino Transferase (SGPT)2021-12-10 20:16:32* Test Item Value Reference Range Interpretation Comme nts ALTv (test code = 1742-6) 9 U/L 5-35 Lab Interpretation (test cod e = 06966-9) Normal [facility] BrookLactate Vviehuddiidxc2586-04-60 20:15:10* Test Item Value Reference Range Interpretation Comme nts LDH (test code = 0394443649) 149 U/L 120-246 Lab Interpretation (test cod e = 94760-7) Normal [facility] BrookLactate Yvdecxqitbhds3491-20-26 20:15:10* Test Item Value Reference Range Interpretation Comme nts LDH (test code = 3999097927) 149 U/L 120-246 Lab Interpretation (test cod e = 50493-8) Normal [facility] BrookCBC with Hasgzgbmmvtf2797-31-22 19:47:25* Test Item Value Reference Range Interpretation [...] 33.9 g/dL 31.6-35.1 RDW-SD (test code = 77162-1) 39.9 fL 39-49.9 RDW-CV (test code = 788-0) 13.6 % 12-15.5 PLT (test code = 777-3) See_Comment [Automated messa ge] The system which generated this result transmitted reference range: 166 - 358 10*3/?L. The reference range was not used to interpret this result as normal/abnormal. MPV (test code = 34780-5) 12.4 fL 9.5-12.9 NRBC/100 WBC (test code = 3043576399) See_Comment [Automated [employer] ssage] The system which generated this result transmitted reference range: 0.0 - 10.0 /100 WBCs. The reference range was not used to interpret this result as normal/abnormal. NRBC x10^3 (test code = 1721246429) See_Comment [Automated messa ge] The system which generated this result transmitted reference range: 10*3/?L. The reference range was not used to interpret this result as normal/abnormal. GRAN MAT (NEUT) % (test code = 770-8) 72.1 % IMM GRAN % (test code = 7150802015) 0.50 % LYMPH % (test code = 736-9) 19.5 % MONO % (test code = 5905-5) 7.3 % EOS % (test code = 713-8) 0.3 % BASO % (test code = 706-2) 0.3 % GRAN MAT x10^3(ANC) (test code = 3339967953) 4.24 10*3/uL 1.88-7.09 IMM GRAN x10^3 (test code = 6584667154) 0.03 10*3/uL 0-0.06 LYMPH x10^3 (test code = 731-0) 1.15 10*3/uL 1.32-3.29 L MONO x10^3 (test code = 742-7) 0.43 10*3/uL 0.33-0.92 EOS x10^3 (test code = 711-2) 0.03-0.39 L BASO x10^3 (test code = 704-7) 0.01-0.07 Lab Interpretation (test code = 74071-1) Abnormal [facility] with Orxuyutylfno4494-39-38 19:47:25* Test Item Value Reference Range Interpretation Comme nts WBC (test code = 6690-2) See_Comment [Automated [employer] ge] The system which generated this result [...] 33.9 g/dL 31.6-35.1 RDW-SD (test code = 87349-8) 39.9 fL 39-49.9 RDW-CV (test code = 788-0) 13.6 % 12-15.5 PLT (test code = 777-3) See_Comment [Automated messa ge] The system which generated this result transmitted reference range: 166 - 358 10*3/?L. The reference range was not used to interpret this result as normal/abnormal. MPV (test code = 29425-8) 12.4 fL 9.5-12.9 NRBC/100 WBC (test code = 2414042605) See_Comment [Automated [employer] ssage] The system which generated this result transmitted reference range: 0.0 - 10.0 /100 WBCs. The reference range was not used to interpret this result as normal/abnormal. NRBC x10^3 (test code = 8458394007) See_Comment [Automated messa ge] The system which generated this result transmitted reference range: 10*3/?L. The reference range was not used to interpret this result as normal/abnormal. GRAN MAT (NEUT) % (test code = 770-8) 72.1 % IMM GRAN % (test code = 2115752273) 0.50 % LYMPH % (test code = 736-9) 19.5 % MONO % (test code = 5905-5) 7.3 % EOS % (test code = 713-8) 0.3 % BASO % (test code = 706-2) 0.3 % GRAN MAT x10^3(ANC) (test code = 7552791374) 4.24 10*3/uL 1.88-7.09 IMM GRAN x10^3 (test code = 6110237636) 0.03 10*3/uL 0-0.06 LYMPH x10^3 (test code = 731-0) 1.15 10*3/uL 1.32-3.29 L MONO x10^3 (test code = 742-7) 0.43 10*3/uL 0.33-0.92 EOS x10^3 (test code = 711-2) 0.03-0.39 L BASO x10^3 (test code = 704-7) 0.01-0.07 Lab Interpretation (test code = 26717-9) Abnormal [facility] URINALYSIS W SPECIFIC [id number] 15:16:00* Test Item Value Reference Range Interpretation [...] U APPEAR (test code = 3267) . [facility] URINALYSIS W SPECIFIC [id number] 19:13:00* Test Item Value Reference Range Interpretation [...] * Lab Interpretation (test cod e = 01544-9) [facility] [id number] 19:08:00* Test Item Value Reference Range Interpretation [...] U APPEAR (test code = 3267) .. [facility]"
[2024-03-16] MEDS ORDERED: KETOROLAC 30 MG/ML INJ ONE (02:03)
[2024-03-16] MEDS ORDERED: METOCLOPRAMIDE 10 MG/2mL INJ ONE (02:04)
[2024-03-16] MEDS ORDERED: DIPHENHYDRAMINE 50 MG/ML VIAL ONE (02:04)
[2024-03-16 02:58] LABS: Sqamous Epithelial <5 /HPF (None Seen); Urine Bacteria None Seen /HPF (<20); Urine Bilirubin NEGATIVE (Negative); Urine Blood Negative (Negative); Urine Clarity Turbid (Clear); Urine Color Light-Yellow (Yellow); Urine Culture Reflex Order NOT NEEDED; Urine Glucose NEGATIVE (Negative); Urine Ketones NEGATIVE (Negative); Urine Microscopic Reflex YN ORDER UMIC; Urine Nitrite NEGATIVE (Negative); Urine Protein NEGATIVE (Negative); Urine RBC <5 /HPF (None Seen); Urine Urobilinogen Normal (Normal); Urine WBC <5 /HPF (<5)
[2024-03-16 03:08] LABS: Albumin 4.1 g/dL (3.4-5.0); Albumin/Globulin Ratio 1.1 (1.1-1.8); Anion Gap 8.6 mEq/L (5.0-15.0); Bilirubin Total 0.3 mg/dL (0.2-1.0); Globulin 3.9 g/dL (2.3-3.5); Potassium 3.6 mEq/L (3.5-5.1)
[2024-03-16 03:10] LABS: Absolute Eosinophils 0.1 K/uL (0-0.5); Absolute Lymphocytes (CBC) 1.9 K/uL (0.7-4.9); Absolute Monocytes 0.5 K/uL (0.1-1.3); Basophils % 0.6 % (0-1.3); Eosinophils % 1.8 % (0-4.4); Hematocrit 38.3 % (36.0-45.0); Hemoglobin 12.7 g/dL (12.0-15.0); Lymphocytes % 28.1 % (15.3-44.8); MCH 27.8 pg (27.0-35.0); MCHC 33.2 g/dL (32.0-36.0); MCV 83.6 fL (80-100); MPV 8.9 fL (7.6-11.3); Monocytes % 8.3 % (3.3-12.3); Neutrophils % 61.2 % (41.7-73.7); Nucleated Red Blood Cells % 0.1 % (0-0); Platelets 304 thou/uL (152-406); RBC Red Blood Cell Count 4.58 M/uL (3.86-4.86); Red Cell Distribution Width 13.6 % (12.1-15.2)
--- NOTE | 2024-03-16 06:50 | RAD REPORT ---
EXAMINATION: CTA NECK CLINICAL INDICATION: Female, 23 years old. HEADACHE TECHNIQUE: Axial CT images were obtained from the aortic arch to the skull base after intravenous con trast utilizing angiographic protocol with 3D post-processing (maximum intensity projection images, volume rendered images and/or shaded surface rendered images). One or more of the following dose redu ction techniques were used: Automated exposure control, adjustment of the mA and/or kV according to patient size, and/or iterative reconstruction. Unless otherwise specified, incidental findings do not require dedicated imaging follow-up. [id number]. NASCET criteria used. Mild 0-49% stenosis Moderate 50-69% stenosis Severe 70-99% stenosis COMPARISON: No prior exam. FINDINGS: AORTA: The imaged aortic arch is normal. CCA: The common carotid arteries are patent and normal in caliber. ICA/ECA: Bilateral internal and external carotid arteries are patent. There is no significant interna l carotid artery stenosis. Where applicable, degree of stenosis is measured using NASCET-like criteria. VERTEBRAL: The cervical vertebral arteries are patent and codominant. SOFT TISSUE: No significant neck soft tissue abnormalities. The visualized lung apices are clear. Thy romegaly. 3D images confirm these findings. IMPRESSION: No flow-limiting stenosis or dissection identified within the neck.
--- NOTE | 2024-03-16 06:51 | RAD REPORT ---
EXAMINATION: CTA HEAD CLINICAL INDICATION: Female, 23 years old. PAIN TECHNIQUE: Axial CT images were obtained through the head after intravenous contrast utilizing angiog raphic protocol with 3D post-processing (maximum intensity projection images, volume rendered images and/or shaded surface rendered images). One or more of the following dose reduction technique s were used: Automated exposure control, adjustment of the mA and/or kV according to patient size, and/or iterative reconstruction. Unless otherwise specified, incidental findings do not require dedic ated imaging follow-up. COMPARISON: No prior exam. FINDINGS: ICA: The petrous, cavernous, and supraclinoid segments of the bilateral internal carotid arteries are normal. The ophthalmic artery origins are visualized and normal. The posterior communicating arteries are patent. MELVA: Anterior cerebral arteries are normal bilaterally. The anterior communicating artery is patent. MCA: Middle cerebral arteries are normal bilaterally. PRINT SHOP ASSISTANT: Posterior cerebral arteries are normal bilaterally. Vertebrobasilar: The vertebral arteries are patent. The basilar artery is normal in appearance. 3D images confirm these findings. IMPRESSION: No occlusion, aneurysm, or hemodynamically significant stenosis identified.
--- NOTE | 2024-03-16 06:51 | RAD REPORT ---
EXAMINATION: CT HEAD WITHOUT CONTRAST CLINICAL INDICATION: Female, 23 years old.HEADACHE TECHNIQUE: Axial CT images from the skull base to the vertex without intravenous contrast. Coronal an d sagittal reformatted images were created from the data set. One or more of the following dose reduction techniques were used: Automated exposure control, adjustment of the mA and/or kV according to patient size, and/or iterative reconstruction. Unless otherwise specified, incidental findings do not require dedicated imaging follow-up. [id number]. COMPARISON: No prior exam. FINDINGS: INTRACRANIAL: No acute intracranial hemorrhage. No hydrocephalus. No mass effect or midline shift. No significant white matter disease VASCULATURE: No visualized abnormalities in the arteries or dural venous sinuses. SCALP/SKULL: No significant soft tissue or osseous abnormalities. SINUSES: The visualized paranasal sinuses and mastoid air cells are predominantly clear. IMPRESSION: No acute intracranial abnormality.
--- NOTE | 2024-03-16 06:55 | ER ---
Nurse's Notes [facility] Name: Chelita Rasmussen Age: 23 yrs Sex: Female : 2000 Arrival Date: 03/16/2024 Time: 01:37 Bed 6 Private MD: Diagnosis: Headache Presentation: 03/16 01:52 Chief complaint: Patient states: This is the worst headache of my life and it has been bm8 going on for three weeks, it comes in waves. Coronavirus screen: At this time, the client does not indicate any symptoms associated with coronavirus-19. Ebola Screen: Patient negative for fever greater than or equal to 101.5 degrees Fahrenheit, and additional compatible Ebola Virus Disease symptoms Patient denies exposure to infectious person. Patient denies travel to an Ebola-affected area in the 21 days before illness onset. No symptoms or risks identified at this time. Initial Sepsis Screen: Does the patient meet any 2 criteria? No. Patient's initial sepsis screen is negative. Does the patient have a suspected source of infection? No. Patient's initial sepsis screen is negative. Risk Assessment: Do you want to hurt yourself or someone else? Patient reports no desire to harm self or others. Onset of symptoms was February 24, 2024. 01:52 Method Of Arrival: Ambulatory bm8 01:52 Acuity: RAGHAV 3 bm8 Triage Assessment: 01:53 Headache History: The patient has had previous headaches and this one is different than bm8 previous episodes, and this one is more severe than previous episodes. General: Appears in no apparent distress. uncomfortable, Behavior is calm, cooperative, appropriate for age. EENT: No deficits noted. No signs and/or symptoms were reported regarding the EENT system. Neuro: Level of Consciousness is awake, alert, obeys commands, Oriented to person, place, time, situation, Appropriate for age Painter Mirror are equal bilaterally Moves all extremities. Full function Gait is steady, Speech is normal, Facial symmetry appears normal, Pupils are PERRLA, Intact Reports headache in right parietal area, frontal area, occipital area. Cardiovascular: Denies chest pain, Capillary refill < 3 seconds in bilateral fingers toes Patient's skin is warm and dry. Respiratory: Airway is patent Respiratory effort is even, unlabored, Respiratory pattern is regular, symmetrical. GI: No signs and/or symptoms were reported involving the gastrointestinal system. : No signs and/or symptoms were reported regarding the genitourinary system. Derm: No signs and/or symptoms reported regarding the dermatologic system. Musculoskeletal: No signs and/or symptoms reported regarding the musculoskeletal system. :53 Pain: Complains of pain in forehead, right temporal area, right side of forehead, right bm8 occipital area and right base of the skull Pain currently is 10 out of 10 on a pain scale. 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 - Infectious Disease History:: Denies. - Social history:: Smoking status: Patient denies any tobacco usage or history of. Patient/guardian denies using alcohol, street drugs. - Family history:: not pertinent. Screenin:14 [facility] ED Fall Risk Assessment (Adult) History of falling in the last 3 months, bm8 including since admission No falls in past 3 months (0 pts) Confusion or Disorientation No (0 pts) Intoxicated or Sedated No (0 pts) Impaired Gait No (0 pts) Mobility Assist Device Used No (0 pt) Altered Elimination No (0 pt) Score/Fall Risk Level 0 - 2 = Low Risk Oriented to surroundings, Maintained a safe environment, Educated pt \T\ family on fall prevention, incl call for assistance when getting out of bed, Assessed \T\ reinforced patient's understanding of fall precautions, Hourly rounding (assess needs \T\ fall precautionary measures) done, Used ambulatory aids as needed (educated on \T\ assisted with), Used gait belt as appropriate. Abuse screen: Denies injuries from another. Nutritional screening: No deficits noted. Tuberculosis screening: No symptoms or risk factors identified. Assessment: 03:06 Reassessment: Patient appears in no apparent distress at this time. Patient and/or bm8 family updated on plan of care and expected duration. Pain level reassessed. Patient is alert, oriented x 3, equal unlabored respirations, skin warm/dry/pink. pt is resting with eyes closed breathing is even unlabored with symmetrical rise and fall of chest, reports headache improved, down to 5/10 on pain scale. Pain: Complains of pain in right side of the back of head and left base of the skull Pain currently is 5 out of 10 on a pain scale. 04:58 Reassessment: Patient appears in no apparent distress at this time. Patient and/or 8 family updated on plan of care and expected duration. Pain level reassessed. Patient is alert, oriented x 3, equal unlabored respirations, skin warm/dry/pink. Patient denies pain at this time. Patient states feeling better. Patient states symptoms have improved. 06:04 Reassessment: Patient appears in no apparent distress at this time. No changes from bm8 previously documented assessment. Patient and/or family updated on plan of care and expected duration. Pain level reassessed. Patient is alert, oriented x 3, equal unlabored respirations, skin warm/dry/pink. 07:08 Reassessment: Patient appears in no apparent distress at this time. No changes from bm8 previously documented assessment. Patient and/or family updated on plan of care and expected duration. Pain level reassessed. Patient is alert, oriented x 3, equal unlabored respirations, skin warm/dry/pink. Vital Signs: 02:13 BP 115 / 75; Pulse 81; Resp 17; Temp 97.8; Pulse Ox 100% ; Weight 108.86 kg; Height 5 bm8 ft. 7 in. ; Pain 10/10; 03:09 BP 119 / 81; Pulse 81; Resp 17; Temp 97.8; Pulse Ox 100% ; Pain 5/10; bm8 04:58 BP 100 / 63; Pulse 70; Resp 17; Temp 97.8; Pulse Ox 100% ; Pain 0/10; bm8 06:04 BP 101 / 60; Pulse 60; Resp 18; Temp 97.8; Pulse Ox 100% on R/A; Pain 0/10; bm8 07:08 BP 101 / 63; Pulse 71; Resp 16; Temp 97.8; Pulse Ox 100% ; Pain 0/10; bm8 02:13 Body Mass Index 37.59 (108.86 kg, 170.18 cm) bm8 02:13 Pain Scale: Adult bm8 03:09 Pain Scale: Adult bm8 04:58 Pain Scale: Adult bm8 06:04 Pain Scale: Adult bm8 07:08 Pain Scale: Adult bm8 Barbara Coma Score: 02:03 Eye Response: spontaneous(4). Motor Response: obeys commands(6). Verbal Response: juanita oriented(5). Total: 15. 02:14 Eye Response: spontaneous(4). Motor Response: obeys commands(6). Verbal Response: bm8 oriented(5). Total: 15. 03:09 Eye Response: spontaneous(4). Motor Response: obeys commands(6). Verbal Response: bm8 oriented(5). Total: 15. 04:58 Eye Response: to voice(3). Motor Response: obeys commands(6). Verbal Response: bm8 oriented(5). Total: 14. 06:04 Eye Response: to voice(3). Motor Response: obeys commands(6). Verbal Response: bm8 oriented(5). Total: 14. 07:08 Eye Response: spontaneous(4). Motor Response: obeys commands(6). Verbal Response: bm8 oriented(5). Total: 15. ED Course: 01:39 Patient arrived in ED. [id number] 01:42 Sam Sahu MD is Attending Physician. [facility] 01:53 Triage completed. bm8 01:53 Arm band placed on right wrist. bm8 02:09 Radiology exam delayed due to IV insertion attempt and/or patient not having nj appropriate IV at this time. 02:14 Patient has correct armband on for positive identification. Placed in gown. Bed in low bm8 position. Call light in reach. Side rails up X 1. Client placed on continuous cardiac and pulse oximetry monitoring. NIBP monitoring applied. Pulse ox on. NIBP on. Door closed. Noise minimized. Pillow given. Verbal reassurance given. Head of bed elevated. 02:14 No provider procedures requiring assistance completed. Initial lab(s) drawn, by me, by [facility] personnel. Urine collected: clean catch specimen, clear. Inserted saline lock: 20 gauge in right antecubital area, using aseptic technique. Blood collected. Flushed with 10 mL NS. Patient maintains SpO2 saturation greater than 95% on room air. 02:33 Kwabena Lawton, RN is Primary Nurse. bm8 03:33 CT Head Brain wo Cont In Process Unspecified. EDMS 03:35 CT Head Angio In Process Unspecified. EDMS 03:35 CT Neck Angio In Process Unspecified. EDMS 06:54 Andrei Whaley MD is Referral Physician. juanita 07:08 Provided Education on: post er care. bm8 07:08 IV discontinued, intact, bleeding controlled, No redness/swelling at site. Pressure bm8 dressing applied. Administered Medications: 02:13 Drug: diphenhydrAMINE IVP 50 mg IVP once Route: IVP; Site: right antecubital; bm8 03:10 Follow up: Response: No adverse reaction bm8 02:13 Drug: metoCLOPramide IVP 10 mg IVP once; over 1 to 2 minutes Route: IVP; Site: right bm8 antecubital; 03:10 Follow up: Response: No adverse reaction bm8 02:13 Drug: Ketorolac IVP 30 mg IVP once Route: IVP; Site: right antecubital; bm8 03:10 Follow up: Response: No adverse reaction bm8 02:15 Drug: NS 0.9% IV 1000 ml IV at 1000 ml once; to be given as a bolus over 60 minutes bm8 Route: IV; Rate: 1000 ml; Site: right antecubital; 03:09 Follow up: Response: No adverse reaction; IV Status: Completed infusion; IV Intake: bm8 1000ml Medication: 02:14 VIS not applicable for this client. bm8 Intake: 03:09 IV: 1000ml; Total: 1000ml. bm8 Outcome: 06:54 Discharge ordered by . juanita 07:08 Discharged to home ambulatory, bm8 07:08 Condition: stable 07:08 Discharge instructions given to patient, Instructed on discharge instructions, follow up and referral plans. no drinking with medication, no driving heavy equipment, medication usage, Demonstrated understanding of instructions, follow-up care, medications, 07:09 Prescriptions given X 2, bm8 07:15 Patient left the ED. bm8 Signatures: Dispatcher [employer] EDMS Sam Sahu MD MD cha Jordan, Kristal Farooq Brad, RN RN bm8 Corrections: (The following items were deleted from the chart) 03:08 01:53 Pain: Complains of pain in forehead, right episcopal, right temporal area, right bm8 occipital area, right base of the skull and face Pain currently is 10 out of 10 on a pain scale. Quality of pain is described as aching, crampy, Pain began 3 weeks ago Also complains of decreased appetite, nausea, inability to work, inability to concentrate, bm8 03:09 03:06 Reassessment: Patient appears in no apparent distress at this time. Patient bm8 and/or family updated on plan of care and expected duration. Pain level reassessed. Patient is alert, oriented x 3, equal unlabored respirations, skin warm/dry/pink. pt is resting with eyes closed breathing is even unlabored with symmetrical rise and fall of chest, reports headache improved, down to 5/10 on pain scale bm8
--- NOTE | 2024-03-16 06:55 | EDPHYS ---
Physician Documentation [facility] Name: Chelita Rasmussen Age: 23 yrs Sex: Female : 2000 Arrival Date: 03/16/2024 Time: 01:37 Bed 6 Private MD: ED Physician Sam Sahu HPI: 03/16 02:00 This 23 yrs old Female presents to ER via Ambulatory with complaints of juanita Headache, Worst Ever. 02:00 The patient complains of pain to the top of head, forehead, left side of the back of juanita head, left occipital area, left base of the skull, right side of the back of head, right occipital area and right base of the skull. The patient describes the headache as aching, constant. Associated signs and symptoms: The patient has no apparent associated signs or symptoms. Severity of symptoms: At its worst the pain was moderate, in the emergency department the pain is unchanged. Headache History: The patient has had previous headaches and this one is similar to previous episodes, and this one is more severe than previous episodes. The symptoms are alleviated by nothing. the symptoms are aggravated by nothing. The patient has not experienced similar symptoms in the past. 02:02 Onset: The symptoms/episode began/occurred Onset: The symptoms/episode began/occurred 2 juanita week(s) ago, gradual , x 2 weeks. [employer]: 01:53 unknown bm8 Historical: - Allergies: 01:53 No Known Allergies; bm8 - Home Meds: 01:53 None [Active]; bm8 - PMHx: 01:53 ADD/ADHD; bm8 - PSHx: 01:53 section; bm8 - Immunization history:: Adult Immunizations up to date. - Infectious Disease History:: Denies. - Social history:: Smoking status: Patient denies any tobacco usage or history of. Patient/guardian denies using alcohol, street drugs. - Family history:: not pertinent. ROS: 02:00 Constitutional: Negative for fever, chills, and weight loss, Eyes: Negative for injury, juanita pain, redness, and discharge, ENT: Negative for injury, pain, and discharge, Neck: Negative for injury, pain, and swelling, Cardiovascular: Negative for chest pain, palpitations, and edema, Respiratory: Negative for shortness of breath, cough, wheezing, and pleuritic chest pain, Abdomen/GI: Negative for abdominal pain, nausea, vomiting, diarrhea, and constipation, Back: Negative for injury and pain, : Negative for injury, bleeding, discharge, and swelling, MS/Extremity: Negative for injury and deformity, Skin: Negative for injury, rash, and discoloration, Psych: Negative for depression, anxiety, suicide ideation, homicidal ideation, and hallucinations, Allergy/Immunology: Negative for hives, rash, and allergies, Endocrine: Negative for neck swelling, polydipsia, polyuria, polyphagia, and marked weight changes, Hematologic/Lymphatic: Negative for swollen nodes, abnormal bleeding, and unusual bruising, 02:00 Neuro: Positive for headache, Exam: 02:00 Constitutional: This is a well developed, well nourished patient who is awake, alert, juanita and in no acute distress. Head/Face: Normocephalic, atraumatic. Eyes: Pupils equal round and reactive to light, extra-ocular motions intact. Lids and lashes normal. Conjunctiva and sclera are non-icteric and not injected. Cornea within normal limits. Periorbital areas with no swelling, redness, or edema. ENT: Nares patent. No nasal discharge, no septal abnormalities noted. Tympanic membranes are normal and external auditory canals are clear. Oropharynx with no redness, swelling, or masses, exudates, or evidence of obstruction, uvula midline. Mucous membranes moist. Neck: Trachea midline, no thyromegaly or masses palpated, and no cervical lymphadenopathy. Supple, full range of motion without nuchal rigidity, or vertebral point tenderness. No Meningismus. Chest/axilla: Normal chest wall appearance and motion. Nontender with no deformity. No lesions are appreciated. Cardiovascular: Regular rate and rhythm with a normal S1 and S2. No gallops, murmurs, or rubs. Normal PMI, no JVD. No pulse deficits. Respiratory: Lungs have equal breath sounds bilaterally, clear to auscultation and percussion. No rales, rhonchi or wheezes noted. No increased work of breathing, no retractions or nasal flaring. Abdomen/GI: Soft, non-tender, with normal bowel sounds. No distension or tympany. No guarding or rebound. No evidence of tenderness throughout. Back: No spinal tenderness. No costovertebral tenderness. Full range of motion. Skin: Warm, dry with normal turgor. Normal color with no rashes, no lesions, and no evidence of cellulitis. MS/ Extremity: Pulses equal, no cyanosis. Neurovascular intact. Full, normal range of motion., bilateral aka Neuro: Awake and alert, GCS 15, oriented to person, place, time, and situation. Cranial nerves II-XII grossly intact. Motor strength 5/5 in all extremities. Sensory grossly intact. Cerebellar exam normal. Normal gait. Psych: Awake, alert, with orientation to person, place and time. Behavior, mood, and affect are within normal limits. 02:00 Neck: External neck: is normal, no acute changes, C-spine: appears grossly normal, no acute changes, Thyroid: appears normal, no acute changes, ROM/movement: is normal, no acute changes, Lymph nodes: no appreciated lymphadenopathy, Vital Signs: 02:13 BP 115 / 75; Pulse 81; Resp 17; Temp 97.8; Pulse Ox 100% ; Weight 108.86 kg; Height 5 bm8 ft. 7 in. ; Pain 10/10; 03:09 BP 119 / 81; Pulse 81; Resp 17; Temp 97.8; Pulse Ox 100% ; Pain 5/10; bm8 04:58 BP 100 / 63; Pulse 70; Resp 17; Temp 97.8; Pulse Ox 100% ; Pain 0/10; bm8 06:04 BP 101 / 60; Pulse 60; Resp 18; Temp 97.8; Pulse Ox 100% on R/A; Pain 0/10; bm8 07:08 BP 101 / 63; Pulse 71; Resp 16; Temp 97.8; Pulse Ox 100% ; Pain 0/10; bm8 02:13 Body Mass Index 37.59 (108.86 kg, 170.18 cm) bm8 02:13 Pain Scale: Adult bm8 03:09 Pain Scale: Adult bm8 04:58 Pain Scale: Adult bm8 06:04 Pain Scale: Adult bm8 07:08 Pain Scale: Adult bm8 Barbara Coma Score: 02:03 Eye Response: spontaneous(4). Motor Response: obeys commands(6). Verbal Response: juanita oriented(5). Total: 15. 02:14 Eye Response: spontaneous(4). Motor Response: obeys commands(6). Verbal Response: bm8 oriented(5). Total: 15. 03:09 Eye Response: spontaneous(4). Motor Response: obeys commands(6). Verbal Response: bm8 oriented(5). Total: 15. 04:58 Eye Response: to voice(3). Motor Response: obeys commands(6). Verbal Response: bm8 oriented(5). Total: 14. 06:04 Eye Response: to voice(3). Motor Response: obeys commands(6). Verbal Response: bm8 oriented(5). Total: 14. 07:08 Eye Response: spontaneous(4). Motor Response: obeys commands(6). Verbal Response: bm8 oriented(5). Total: 15. MDM: 01:43 Medical Screening Exam initiated juanita 02:03 Differential diagnosis: cluster headache, cerebral vascular accident, epidural juanita hematoma, meningitis, migraine, neoplasm, subarachnoid bleed, temporal arteritis, tension headache, traumatic injuries, trigeminal neuralgia, uremia, vasomotor headache. Data reviewed: vital signs, nurses notes, lab test result(s), radiologic studies, CT scan. Consideration of Admission/Observation Escalation of care including admission/observation considered. I considered the following discharge prescriptions or medication management in the emergency department Medications were administered in the Emergency Department. See MAR. Independent interpretation of the following test(s) in the Emergency Department CT Scan: My interpretation is ct head , cta head. Historians other than the Patient: pt well informed. 03/16 01:57 Order name: CBC with Diff; Complete Time: 03:42 [facility] 03/16 01:57 Order name: Comprehensive Metabolic Panel; Complete Time: 03:42 [facility] 03/16 01:57 Order name: Urinalysis w/ reflexes; Complete Time: 03:42 [facility] 03/16 01:57 Order name: PREGU; Complete Time: 03:42 [facility] 03/16 01:57 Order name: CT Head Brain wo Cont [facility] 03/16 01:57 Order name: CT Head Angio [facility] 03/16 01:57 Order name: CT Neck Angio juanita Administered Medications: 02:13 Drug: diphenhydrAMINE IVP 50 mg IVP once Route: IVP; Site: right antecubital; bm8 03:10 Follow up: Response: No adverse reaction bm8 02:13 Drug: metoCLOPramide IVP 10 mg IVP once; over 1 to 2 minutes Route: IVP; Site: right bm8 antecubital; 03:10 Follow up: Response: No adverse reaction bm8 02:13 Drug: Ketorolac IVP 30 mg IVP once Route: IVP; Site: right antecubital; bm8 03:10 Follow up: Response: No adverse reaction bm8 02:15 Drug: NS 0.9% IV 1000 ml IV at 1000 ml once; to be given as a bolus over 60 minutes bm8 Route: IV; Rate: 1000 ml; Site: right antecubital; 03:09 Follow up: Response: No adverse reaction; IV Status: Completed infusion; IV Intake: bm8 1000ml Disposition Summary: 03/16/24 06:54 Discharge Ordered Notes: Location: Home juanita Problem: new juanita Symptoms: have improved juanita Condition: Stable juanita Diagnosis - Headache juanita Followup: juanita - With: Private Physician - When: 2 - 3 days - Reason: Recheck today's complaints, Continuance of care, Re-evaluation by your physician Followup: juanita - With: Andrei Whaley MD - When: 2 - 3 days - Reason: Recheck today's complaints, Re-evaluation by your physician Discharge Instructions: - Discharge Summary Sheet juanita - General Headache Without Cause juanita - Migraine Headache juanita - Migraine Headache, [id number] juanita - General Headache Without Cause, [id number] juanita Forms: - Medication Reconciliation Form juanita - Antibiotic Education juanita - Prescription Opioid Use juanita - Patient Portal Instructions juanita - Leadership Thank You Letter juanita - Work release form bm8 Prescriptions: - ondansetron 4 mg Oral Tablet,disintegrating - take 1 tablet ORAL route every 6-8 hours prn nausea/ vomiting; 20 tablet; juanita Refills: 0, Product Selection Permitted - diclofenac sodium 50 mg Oral tablet, delayed release (enteric coated) - take 1 tablet ORAL route every 8 hours as needed for pain; 21 tablet; Refills: juanita 0, Product Selection Permitted Signatures: Dispatcher [employer] Sam Mcfarlane MD MD cha McDonald, Brad, RN RN bm8 Corrections: (The following items were deleted from the chart) 01:57 01:57 CBC+H.LAB.BRZ ordered. EDMS EDMS 01:57 01:57 COMPREHENSIVE METABOLIC PANEL+C.LAB.BRZ ordered. EDMS EDMS 01:57 01:57 Urinalysis+U.LAB.BRZ ordered. EDMS EDMS 01:57 01:57 Test, Urine+UC.LAB.BRZ ordered. EDMS EDMS 02:03 02:00 Onset: The symptoms/episode began/occurred 2 day(s) ago, juanita grant 04:59 01:57 Oxygen ordered. [facility] bm8
[2024-03-16 13:24] VITALS: TEMP 97.8; O2SAT 100
[2024-03-16 13:31] VITALS: BP 101/63
== END 2024-03-16 07:15 | disposition home or self-care (01) ==
LOC: ER 01:37
DX: R51.9 Headache, unspecified (principal)
CPT/HCPCS: 96361; 85025; 81001; 36415; 81025; 80053; 70450; 70496; 70498; 96375; 96374; 99284; Q9967; J2765; J1200